=== PATIENT | male | born 1955 | race Caucasian/White ===

== ENCOUNTER 2018-03-20 11:19 | Day surgery (SDC) | payer OTHER ==
[~2018-03-20] VITALS: Ht 181.6 cm; Wt 96.5 kg
[~2018-03-20 11:19] MED LIST: AMB5 PO; ASPI81TA28 PO; ATOR-24 PO; ATV/1 PO; CRG625 PO; GEMF600T PO; GLIM4TAB PO; ISOS30TA3 PO; LISI-461 PO; METFTAB2 PO; NTRGSL/4 UT; OMEGCAP2 PO; SERT25TA PO; ULT/50 PO
[2018-03-20] MEDS ORDERED: HYDR25TA5 PO (12:11)
[2018-03-20] MEDS ORDERED: FLUT0.15 (12:11)
[2018-03-20] MEDS ORDERED: AMLO10TA2 PO (12:11)
[2018-03-20] MEDS ORDERED: WARF5TAB90 PO (12:11)
[2018-03-20 12:17] VITALS: BP 154/76; PULSE 56; TEMP 36.6; O2SAT 94; Ht 181.6 cm; Wt 96.5 kg
[2018-03-20] MEDS ORDERED: LIDOCAINE HCL 1% 20 ML VIAL ONE (12:22)
[2018-03-20] MEDS ORDERED: FENTANYL CITRATE INJ 50 MCG/1 ML 2 ML VIAL ONE (12:33)
[2018-03-20] MEDS ORDERED: MIDAZOLAM HCL 5 MG/ML 1 ML VIAL ONE (12:33)
--- NOTE | 2018-03-20 12:59 | Pre Sedation Assessment ---
Pre Sedation Assessment General Date of Sedation: Mar 20, 2018. Vital Signs Past 12 Hours Date Time Temp Pulse Resp B/P (MAP) Pulse Ox O2 Delivery O2 Flow Rate FiO2 03/20/18 12:17 36.6 56 18 154/76 (102) 94 Room Air Review Cardiovascular: regular rate, rhythm Lungs: lungs clear Pre-Sedation Airway Assessment Smoking Status: Never Smoker Hx of Sleep Apnea: Yes Hx of difficult intubation: No Short Thick Neck: No Thyro-mental Distance: > 3 Finger Breadths Oral Cavity: WNL Mallampati Classification: Class III ASA Classification: Class III NPO Status Date of Last Intake of Fluids: Mar 19, 2018 Time of Last Intake of Fluids: 1800 Date of Last Intake of Solids: Mar 19, 2018 Time of Last Intake of Solids: 1800 Procedure Planning Contraindications for Sedation: None Current Medications Reviewed: Yes Notes The planned sedation has been discussed with the patient. Informed Consent was obtained. I have identified the patient, determined the appropriateness of sedation and have assessed the patient immediately prior to the procedure. All medicine(s) and interventions are by my order.
--- NOTE | 2018-03-20 12:59 | History & Physical Bridge Note ---
H&P Re-Evaluation Bridge Note: I have examined the patient, reviewed the History & Physical and in the interval since the performance of the History & Physical I have noted the following changes of clinical significance: INR reported to be 2.1 four days ago. Other labs normal. No new symptoms. No changes noted
[2018-03-20] MEDS ORDERED: CLINDAMYCIN 600 MG/54 ML D5W IV ONE (13:00)
[2018-03-20] MEDS ORDERED: LACTATED RINGER'S 1000ML 1,000 ML IV SCH (13:00)
--- NOTE | 2018-03-20 14:16 | [facility] Operative Report ---
Operative Report Date of Service Mar 20, 2018. Operative Report Procedure performed: Pulse generator change for dual-chamber ICD Staff systems checkout mechanic: Randy Cuevas MD Indication: The patient is 60-year-old gentleman with a history of an ischemic cardiomyopathy who was noted on routine evaluation to reached the elective replacement interval on his device. He is therefore advised to undergo pulse generator change today. Procedure in detail: The patient was informed of the risks benefits and alternatives to the intended procedure and she wished to proceed. She was taken to the electrophysiology suite in a fasting state. A preoperative antibiotic had been administered. The patient was monitored electrocardiographically throughout today's procedure and conscious sedation was administered per protocol. The left upper pectoral area is prepped and draped in usual sterile fashion. This area was anesthetized using subcutaneous administration of a xylocaine solution. An incision was made at this site and carried down to the previously implanted device. Electrocautery was also employed for hemostasis as well as dissection. The previously implanted pulse generator was then free from the surrounding scar tissue. The leads were detached from the old device and attached to a new device. The pocket was irrigated with antibiotic solution. The device and leads were then placed in the pocket and pocket was closed in 3 layers of absorbable suture. Steri-Strips and sterile dressing were applied. The device was tested noninvasively prior to conclusion the procedure. The patient tolerated procedure well there no immediate complications. Equipment used: Explanted pulse generator: Fusing Machine Operator [employer]. Model number D [id number] DRG. Serial P [id number] New pulse generator: Fusing Machine Operator [employer]. Model number: DDD MB 1 D1 serial number [id number] Right atrial lead: Fusing Machine Operator [employer]. Model number: [id number] serial number [id number] Right ventricular lead: Fusing Machine Operator [employer]. Model number: [id number] serial number [id number] Measured data: Right atrial lead: P-waves measured 2.6 millivolts. Pacing threshold 0.75 volts at 0.4 milliseconds with a pacing impedance of 513 Ohms Right ventricular lead: R-waves measured 14.4 millivolts pacing threshold 0.75 volts at 0.4 milliseconds with a pacing impedance of 418 Ohms Impression: Successful pulse generator change for dual-chamber ICD I attest to the content of the Intraoperative Record and any orders documented therein. Any exceptions are noted below.
[2018-03-20] MEDS ORDERED: CLIN300C2 PO (14:18)
--- NOTE | 2018-03-20 14:20 | Discharge Instructions ---
Discharge Instructions Procedure Procedure Date: Mar 20, 2018. Reason for Visit: Elective Replacement Indicator. Discharge Discharge Date: Mar 20, 2018. Discharge Diagnosis: ICD generator change Last Recorded Wt (Kilograms): 96.5 Anesthesia Post Anesthesia Instructions: If you have had General Anesthesia or IV Sedation: * Do not drive today. * Resume driving when surgeon permits. * Do not make important decisions or sign legal documents today. * Call surgeon for: 1. Temperature elevations greater than 101 degrees F. 2. Uncontrollable pain. 3. Excessive bleeding. 4. Persistent nausea and vomiting. 5. Medication intolerance (nausea, vomiting or rash). * For nausea and vomiting use only clear liquids such as: tea, soda, bouillon until nausea subsides, then gradually increase diet as tolerated. * If you have any concerns or questions, call your surgeon's office. If physician is unavailable and it is an emergency, call 911 or go to the nearest emergency room. Instructions Activity Recommendations: shower/bathe limit Return to School/Work: with no limitations Recommended Home Diet: resume previous diet Allergies: Coded Allergies: Sulfa Drugs (Verified Allergy, Intermediate, "RASH A CHILD", 03/20/18) Penicillins (Verified Allergy, Mild, "RASH A CHILD", 03/20/18) Provider Instructions Keep wound dry and Steri-Strips intact 5 days. Follow Up Sebastian Calderon Recommendations: Call your doctor if: * Temperature above 101 degrees * Pain not relieved by pain medicine ordered * There is increased drainage or redness from any incision * You have any unanswered questions or concerns. Your Doctors Instructions noted above were prepared by provider Emir Cuevas. Patient Signature Section: Patient Instructions Signature Page Ric Quiroz Patient (or Guardian) Signature/Date: I have read and understand the instructions given to me by my caregivers. Caregiver/RN/Doctor Signature/Date: The above-named patient and/or guardian has received patient instructions on this date. + Original Patient Signature Page (only) stays with chart. Please make copy for patient.
[2018-03-20 14:25] VITALS: BP 128/83; PULSE 60; TEMP 36.6; O2SAT 91
[2018-03-20 14:55] VITALS: BP 136/86; PULSE 60; TEMP 36.6; O2SAT 91
== END 2018-03-20 15:03 | disposition home or self-care (01) ==
LOC: C.ACU 11:19
PROVIDERS: ATTEND Internal Medicine Clinical Cardiac Electrophysiology
DX: Z45.010 Encounter for checking and testing of cardiac pacemaker pulse generator [battery] (principal); I25.10 Atherosclerotic heart disease of native coronary artery without angina pectoris; I25.5 Ischemic cardiomyopathy; J30.9 Allergic rhinitis, unspecified; E78.00 Pure hypercholesterolemia, unspecified; I10 Essential (primary) hypertension; G47.33 Obstructive sleep apnea (adult) (pediatric); Z79.82 Long term (current) use of aspirin; Z79.01 Long term (current) use of anticoagulants; Z88.0 Allergy status to penicillin; Z88.2 Allergy status to sulfonamides

== ENCOUNTER 2019-09-18 10:18 | Inpatient (IN) ==
[2019-09-18] MEDS ORDERED: FUROSEMIDE 40 MG/4 ML VIAL IV STA ×2 (11:06→16:00)
[2019-09-18] MEDS ORDERED: ASPIRIN CHEW 324 MG PO STA (11:09)
[2019-09-18 11:39] LABS: Basophils # (auto) 0.02 K/uL (0-0.2); Basophils % (auto) 0.2 %; Hemoglobin 11.8 g/dL (14.0-18.0); Immature Granulocytes # (auto) 0.01 K/uL (0.00-0.02); Immature Granulocytes % (auto) 0.1 %; Lymphocytes # (auto) 0.83 K/uL (1.2-3.4); Lymphocytes % (auto) 8.9 %; Mean Corpuscular Hemoglobin 31.1 pg (25-34); Mean Corpuscular Hgb Conc 33.7 g/dL (32-36); Mean Corpuscular Volume 92.3 fL (80-100); Mean Platelet Volume 9.8 fL (7.4-10.4); Monocytes # (auto) 0.78 K/uL (0.11-0.59); Monocytes % (auto) 8.3 %; Neutrophils # (auto) 7.73 K/uL (1.4-6.5); Neutrophils % (auto) 82.5 %; Platelet Count 199 K/uL (130-400); RDW Coefficient of Variation 15.3 % (11.5-14.5); RDW Standard Deviation 51.4 fL (36.4-46.3); Red Blood Count 3.79 M/uL (4.7-6.1); White Blood Count 9.37 K/uL (4.8-10.8)
[2019-09-18 12:00] LABS: Albumin Level 2.9 gm/dl (3.4-5.0); BUN Creatinine Ratio 19.1 (10-20); Calcium 9.9 mg/dl (8.5-10.1); Creatinine Clr Calc Pharmacy 47.8 ml/min; Est GFR (African American) 39.9; Est GFR (Non-African American) 34.5; Magnesium 1.8 mg/dl (1.8-2.4); Potassium 4.6 mmol/L (3.5-5.1)
[2019-09-18 12:01] LABS: INR 1.1 (0.9-1.1); Partial Thromboplastin Ratio 1.1; Partial Thromboplastin Time 28.9 Seconds (21.0-31.0); Prothrombin Time 11.3 Seconds (9.0-12.0)
[2019-09-18 12:05] LABS: Albumin Globulin Ratio 0.6 (0.9-2); Bilirubin,Total 0.8 mg/dl (0.2-1); Globulin 4.5 gm/dl (2.5-4.0); Total Protein 7.4 gm/dl (6.4-8.2); Troponin I 0.022 ng/ml (0-0.045)
--- NOTE | 2019-09-18 12:29 | XRay Report ---
XR chest 1V portable HISTORY: 64 years-old Male Chest Pain acute atypical chest pain COMPARISON: 11/25/2013 TECHNIQUE: Portable AP view of the chest FINDINGS: Cardiac silhouette is enlarged, unchanged. Pulmonary vascular congestion with mild interstitial coars ening. Bibasilar alveolar opacities are noted with blunting of the costophrenic angles. There is no p neumothorax. Left subclavian pacer/AICD redemonstrated. Calcific plaque of the thoracic aortic arch. Degenerative changes of the shoulders and spine. IMPRESSION: 1. Cardiomegaly with pulmonary vascular congestion and interstitial coarsening suggestive of pulmonar y edema. 2. Bibasilar consolidative opacities suggest atelectasis or pneumonitis. 3. Probable trace pleural effusions. ACT 112: Negative or not required by law. The above report was generated using voice recognition software. It may contain grammatical, syntax o r spelling errors. Electronically signed by: Louis Kearney M.D. 09/18/2019 12:27 PM
[2019-09-18] MEDS ORDERED: PNEUMOCOCCAL POLYSACCHARIDES 25 MCG/0.5 ML VIAL/SYR IM ONE (12:53)
[2019-09-18] MEDS ORDERED: PNEUMOCOCCAL ADMINISTRATION CHARGE ONE (12:53)
[2019-09-18 13:42] LABS: Thyroid Stimulating Hormone 6.63 uIu/ml (0.300-4.500)
[2019-09-18 13:55] LABS: T4 Free Thyroxine 1.13 ng/dl (0.8-1.6)
[2019-09-18] MEDS ORDERED: Heparin IV Standard *NO* Bolus IV ONE (14:10)
[2019-09-18] MEDS ORDERED: HEPARIN 25000 UNIT/500 ML D5W IV ONE (14:17)
--- NOTE | 2019-09-18 14:21 | History & Physical Report ---
Date of Service September 18, 2019 Assessment & Plan (1) Fluid overload: Pt is 64 y/o M with PMH CAD s/p stent, ischemic cardiomyopathy s/p ICD, history left apical aneurysm, DM II, HTN, dyslipidemia, RYAN, CKD presented to ER with c/o weight gain over past 2-3 months and SOB x 2-3 weeks, increased BLE edema and abdominal bloating In ER afebrile, P: 63, R: 20, BP: 162/98, 93% on 6L oxygen via NC. CXR: Cardiomegaly with pulmonary vascular congestion and interstitial coarsening suggestive of pulmonary edema. Bibasilar consolidative opacities suggest atelectasis or pneumonitis. Probable trace pleural effusions. Anasarca -In ER given Lasix 40 mg IV -BNP pending -Lasix 60 mg IV twice daily -Nitropaste -Echo -Hold oral Bumex. Hold metolazone (patient has not started yet) -Monitor I's and O's, low-sodium diet -Supplemental oxygen as needed -Cardiology consult -CBC, BMP in a.m. (2) Atrial fibrillation: EKG: afib, rate 64, left anterior fascicular block, ventricular paced. In ER HR 50's-60's CHADSVASC: 4 -Continue metoprolol -Heparin IV -Cardiology consult (3) Chest pain: Episode CP last night and this morning. Had 2 sprays of nitroglycerin in route by EMS with resolution of chest pain Troponin: 0.02 -Nitropaste -On IV heparin -Continue aspirin, statin, metoprolol -Nitropaste -Echo -Lipid panel in morning -Cardiology consult (4) CAD (coronary artery disease): S/P Stent -CP work up as above H/O LEFT APICAL ANEURYSM Previously on Coumadin. Coumadin was discontinued while in nursing home -Currently on Heparin IV (5) CKD (chronic kidney disease): Present records indicate CKD. Unsure of CKD stage and baseline labs BUN: 38, Cr: 1.99, GFR: 34.5 -Monitor renal function -Avoid nephrotoxic agents when possible -May need to consider nephrology consult if worsening renal functions (6) HTN (hypertension): -Continue amlodipine, metoprolol -Enalapril was to be started however patient has not started yet, will hold for now and monitor renal functions and BP -Currently on Lasix and Nitropaste -Monitor BP (7) 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, type II: -A1c in a.m. -Hold glimepiride, metformin -Novolog sliding scale per protocol (8) RYAN (obstructive sleep apnea): -CPAP HS DVT Prophylaxis -On heparin IV Full Code as per discussion with pt Follows with Dr Rodriguez at [facility] for routine care Pt was seen and care coordinated with Dr Wylie. See addendum History of Present Illness Chief Complaint: SOB, Edema Primary Care Provider: [facility] Pt is 64 y/o M with PMH CAD s/p stent, ischemic cardiomyopathy s/p ICD, history left apical aneurysm, DM II, HTN, dyslipidemia, RYAN, CKD presented to ER with complaint of shortness of breath x 2-3 weeks. Patient states has noted gradual weight gain over the past 2 to 3 months with increased weight gain over the past month. Patient states has gained approximately 30 pounds. He reports bilateral lower extremity edema which has progressed to scrotal edema and abdominal bloating. He reports past 2 to 3 weeks has been having shortness of breath and orthopnea. In present Bumex was started a couple of weeks ago. Patient states had telemetry med consult with freight associate recently and discussion was to start metolazone however it has not been started yet. Patient states last night had some anterior left-sided chest aching, however he reports that he did not ask for his sublingual nitro. During transport to ER today patient reports EMS gave 2 sprays of nitroglycerin and since he has not had any further chest discomfort. Patient reports sitting fully upright and on oxygen in ER he feels much more comfortable and feels like his less short of breath. Patient with history of left apical aneurysm and previously was on Coumadin however patient states was taken off Coumadin in nursing home as they felt it was not necessary. Pt states that his diet has been different since being incarcerated. Denies fever/chills, diaphoresis, N/V/D/C, BRUNO, dizziness, syncope, vision changes, neck pain, palpitations, cough, sore throat, choking, otalgia, rhinorrhea, abdominal pain, paresthesias, weakness, rashes, dysuria, hematuria, urinary frequency or retention. Allergies Allergy/AdvReac Type Severity Reaction Status Date / Time Sulfa (Sulfonamide Allergy Intermediate "RASH A Verified 09/18/19 11:50 Antibiotics) CHILD" Penicillins Allergy Mild "RASH A Verified 09/18/19 11:50 CHILD" camphor Allergy Unknown Verified 09/18/19 11:50 [From [place] (with capsicum)] capsaicin Allergy Unknown Verified 09/18/19 11:50 [From [place] (with capsicum)] menthol Allergy Unknown Verified 09/18/19 11:50 [From [place] (with capsicum)] Home Medications Home Medications Medication Instructions Recorded Confirmed Type atorvastatin 80 mg tablet 80 mg PO QAM #90 tab 03/04/19 09/18/19 History glimepiride 4 mg tablet 4 mg PO BID tab 03/04/19 09/18/19 History metformin 1,000 mg tablet 1,000 mg PO BID #180 tab 03/04/19 09/18/19 History nitroglycerin 0.4 mg sublingual 0.4 mg SL UD PRN tab 03/04/19 09/18/19 History tablet amlodipine 5 mg PO QAM 09/18/19 09/18/19 History aspirin 81 mg PO QAM 09/18/19 09/18/19 History bumetanide 2 mg PO QAM 09/18/19 09/18/19 History enalapril maleate 10 mg PO BID 09/18/19 09/18/19 History metolazone 2.5 mg PO DAILY 09/18/19 09/18/19 History metoprolol tartrate 25 mg PO BID 09/18/19 09/18/19 History Past Med/Surg History Medical History (Updated 09/18/19 @ 14:28 by Mar Corrales PA-C) CAD (coronary artery disease) CKD (chronic kidney disease) Diabetes 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, type II Dyslipidemia High cholesterol History of myocardial infarction HTN (hypertension) RYAN (obstructive sleep apnea) Surgical History (Updated 09/18/19 @ 15:18 by Mar Corrales PA-C) History of cardiac cath History of permanent cardiac pacemaker placement Family History (Updated 09/18/19 @ 14:19 by Mar Corrales PA-C) Other Diabetes Hypertension Social History Preferred Language: Albanian Communication Ability: Effective Pin Maker Required: No Beliefs That Will Affect Care: None Current Living Situation: Other Current Living Situation Comment: [facility] Other Information That Helps Us Care for You: No Feels Safe at Home: Yes Safety Concerns: Feels Safe At This Time Smoking Status: Never smoker Do You Dip or Chew Tobacco: No ; Second Hand Exposure: No ; Tobacco Cessation Education Requested by Patient: No Hx Alcohol Use: No Hx Substance Use: No Review of Systems Review of Systems: All systems reviewed & are unremarkable except as noted in HPI & below Physical Exam Physical Exam: General: no acute distress on supplemental oxygen and sitting upright, obese Head: normocephalic, atraumatic Eyes: PERRL, EOM's intact, conjunctiva non-injected, anicteric ENT: normal inspection external ears, nose, mucous membranes moist Neck: supple, trachea midline Lungs: R: 20, 92 % on 4L NC, no retractions, +diminished breath sounds CV: irregularly irregular, rate 58, no murmur, JVD, 3+ edema BLE, edema extending to scrotum and abdomen Abd: normal BS, distended, non-tender Ext: no cyanosis, no calf tenderness Neuro: A&O x 3, no focal deficits noted, normal affect Skin: warm, dry Results & Data Vital Signs (Past 12 Hours) Vital Signs Temp Pulse Resp BP Pulse Ox 09/18/19 13:31 55 L 21 09/18/19 13:30 56 L 26 H 189/105 H 09/18/19 13:01 56 L 25 H 92 09/18/19 13:00 54 L 16 173/126 H 91 09/18/19 12:30 55 L 19 178/124 H 91 09/18/19 12:00 51 L 22 161/98 H 93 09/18/19 11:48 59 L 27 H 180/92 H 91 09/18/19 11:00 53 L 29 H 147/77 H 91 09/18/19 10:25 36.5 C 60 20 162/98 H 91 Laboratory Results Short CBC 09/18/19 Range/Units 11:12 WBC 9.37 (4.8-10.8) K/uL Hgb 11.8 L (14.0-18.0) g/dL Hct 35.0 L (42-52) % Plt Count 199 (130-400) K/uL BMP 09/18/19 11:12 Sodium 138 Potassium 4.6 Chloride 108 H Carbon Dioxide 26 BUN 38 H Creatinine 1.99 H Glucose 161 H Calcium 9.9 Cardiac Enzymes 09/18/19 Range/Units 11:12 Troponin I 0.022 (0-0.045) ng/ml Liver Function 09/18/19 Range/Units 11:12 Total Bilirubin 0.8 (0.2-1) mg/dl AST 24 (15-37) U/L ALT 33 (12-78) U/L Alkaline Phosphatase 129 H (45-117) U/L Albumin 2.9 L (3.4-5.0) gm/dl Diagnostic Findings CXR: IMPRESSION: 1. Cardiomegaly with pulmonary vascular congestion and interstitial coarsening s uggestive of pulmonary edema. 2. Bibasilar consolidative opacities suggest atelectasis or pneumonitis. 3. Probable trace pleural effusions. Supervising Physician Co-Signing Physician Notes Attending addendum Patient was seen and examined in emergency room He has significant past medical history including ischemic cardiomyopathy status post ICD placement and other medical condition as mentioned in H&P was admitted with increasing shortness of breath, swelling of the legs and scrotum, weight gain and questionable chest pain You are not having any chest pain and/or shortness of breath at rest during examination in the emergency room Denies any other significant symptoms On examination Lying in bed comfortably Obese-with anasarca Hemodynamically stable with blood pressure on the upper end at systolic 156 Chest-decreased breath sounds with bibasilar crackles Heart-S1-S2. 2/6 systolic murmur over precordium Abdomen-distended, possible ascites, bowel sounds present Extremities-2+ edema bilaterally up to the waist and even lower abdomen Significant scrotal swelling Seen-alert, awake and oriented x3. Generally weak His admission labs, EKG and imaging studies noted Has CHF likely biventricular with ischemic cardiomyopathy and low EF with ICD Atrial fibrillationrate is controlled but he is off anticoagulation Heparin has been restarted, Lasix will be administered and cardiology consultation Agree with assessment and plan as outlined above by YOVANI Lopez DR
--- NOTE | 2019-09-18 14:31 | Emergency Department Note ---
Entered by Radha Pereyra acting as a scribe for History of Present Illness General Chief complaint: Chest Pain Source: patient Mode of arrival: EMS History of Present Illness Onset (ago): day(s) 3 Location: chest Pain Consistency: + now resolved Quality: + other (chest pain) Relieved By: not by medication (Lasix) Exacerbated By: + movement and + other (lying flat) Associated symptoms: + chest pain, + shortness of breath and + other (weight gain) Treatments prior to arrival: aspirin The patient is a 64 year old male presenting to the Emergency Department co mplaining of now resolved chest pain starting 3 days ago. The patient reports that he had chest pain that resolved. He explains that when he turns a certain way this turns into a sharp pain. He states that he has been short of breath and that lying flat worsens his shortness of breath. He notes that he has gained 35 pounds in the last 3 weeks. He adds that he has been to [facility], where he resides and has been taking Lasix which hasnt improved his weight gain. The patient reports that he noticed that his scrotum has been swelling. He states that he received Aspirin from [facility]. He denies recent fevers or chills. Home Medications Home Medications Medication Instructions Recorded Confirmed Type atorvastatin 80 mg tablet 80 mg PO QAM #90 tab 03/04/19 09/18/19 History glimepiride 4 mg tablet 4 mg PO BID tab 03/04/19 09/18/19 History metformin 1,000 mg tablet 1,000 mg PO BID #180 tab 03/04/19 09/18/19 History nitroglycerin 0.4 mg sublingual 0.4 mg SL UD PRN tab 03/04/19 09/18/19 History tablet amlodipine 5 mg PO QAM 09/18/19 09/18/19 History aspirin 81 mg PO QAM 09/18/19 09/18/19 History bumetanide 2 mg PO QAM 09/18/19 09/18/19 History enalapril maleate 10 mg PO BID 09/18/19 09/18/19 History metolazone 2.5 mg PO DAILY 09/18/19 09/18/19 History metoprolol tartrate 25 mg PO BID 09/18/19 09/18/19 History Allergies Allergy/AdvReac Type Severity Reaction Status Date / Time Sulfa (Sulfonamide Allergy Intermediate "RASH A Verified 09/18/19 11:50 Antibiotics) CHILD" Penicillins Allergy Mild "RASH A Verified 09/18/19 11:50 CHILD" camphor Allergy Unknown Verified 09/18/19 11:50 [From [place] (with capsicum)] capsaicin Allergy Unknown Verified 09/18/19 11:50 [From [place] (with capsicum)] menthol Allergy Unknown Verified 09/18/19 11:50 [From [place] (with capsicum)] Past Med/Surg History Medical History (Updated 09/20/19 @ 12:52 by Stacey Billy MD, PhD) CAD (coronary artery disease) CKD (chronic kidney disease) Diabetes 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, type II Dyslipidemia High cholesterol History of myocardial infarction HTN (hypertension) RYAN (obstructive sleep apnea) Proteinuria Surgical History History of cardiac cath History of permanent cardiac pacemaker placement Family History Other Diabetes Hypertension Social History Preferred Language: Cymro Communication Ability: Effective Load Dispatcher Required: No Beliefs That Will Affect Care: None Current Living Situation: Other Current Living Situation Comment: [facility] Other Information That Helps Us Care for You: No Feels Safe at Home: Yes Safety Concerns: Feels Safe At This Time Smoking Status: Never smoker Do You Dip or Chew Tobacco: No ; Second Hand Exposure: No ; Tobacco Cessation Education Requested by Patient: No Hx Alcohol Use: No Hx Substance Use: No Review of Systems See HPI for pertinent positives & negatives. and A total of 10 systems reviewed and were otherwise negative Physical Exam Vital Signs Vital Signs - 24 hr 09/18/19 10:25 09/18/19 11:00 09/18/19 11:48 Temperature 36.5 C Temperature Source Oral Pulse Rate 60 53 L 59 L Pulse Rate from SpO2 Sensor 59 L 56 L 54 L Respiratory Rate 20 29 H 27 H Respiratory Effort / Characteristics Non-Labored Spontaneous Respiratory Depth Normal Blood Pressure 162/98 H 147/77 H 180/92 H Blood Pressure Mean 119 95 131 Blood Pressure Position Sitting Pulse Oximetry 91 91 91 Oxygen Delivery Method Nasal Cannula Nasal Cannula Nasal Cannula Oxygen Flow Rate 6 6 4 Sepsis Recent Fever Within 48 Hours No Sepsis Action Taken by Nursing No Action Required 09/18/19 12:00 09/18/19 12:30 09/18/19 13:00 Temperature Temperature Source Pulse Rate 51 L 55 L 54 L Pulse Rate from SpO2 Sensor 51 L 57 L 56 L Respiratory Rate 22 19 16 Respiratory Effort / Characteristics Respiratory Depth Blood Pressure 161/98 H 178/124 H 173/126 H Blood Pressure Mean 134 147 144 Blood Pressure Position Pulse Oximetry 93 91 91 Oxygen Delivery Method Nasal Cannula Nasal Cannula Nasal Cannula Oxygen Flow Rate 4 4 4 Sepsis Recent Fever Within 48 Hours Sepsis Action Taken by Nursing 09/18/19 13:01 09/18/19 13:30 09/18/19 13:31 Temperature Temperature Source Pulse Rate 56 L 56 L 55 L Pulse Rate from SpO2 Sensor 56 L Respiratory Rate 25 H 26 H 21 Respiratory Effort / Characteristics Respiratory Depth Blood Pressure 189/105 H Blood Pressure Mean 126 Blood Pressure Position Pulse Oximetry 92 Oxygen Delivery Method Oxygen Flow Rate Sepsis Recent Fever Within 48 Hours Sepsis Action Taken by Nursing Vital signs reviewed. General: Well-appearing 64 year old male, in no significant distress. HEENT: No scleral icterus, PERRLA, neck supple. Atraumatic. Cardiovascular: Controlled rate and irregular rhythm, no extra sounds. Pulmonary: Crackles at bases bilaterally. Normal work of breathing. Abdomen: Obese. Soft, nontender, nondistended, positive bowel sounds. Musculoskeletal: 3+ pitting edema to bilateral lower extremities. Atraumatic. Neurologic: Patient awake alert and oriented x 3 Skin: Warm, dry, no rash Course Course 1102: The patient was evaluated in room B6, and a complete history and physical examination were performed. 1241: I discussed the patient's case with Karolyn HILL. Dr. Wylie [facility] hospitalist will evaluate the patient for further management. 1245: I updated the patient at this time. Administered Medications Amlodipine Besylate (Norvasc) 5 mg PO QAM [facility] Stop: 10/19/19 08:59 Last Admin: 09/20/19 08:42 Dose: 5 mg Documented by: [id number] Admin: 09/19/19 08:41 Dose: 5 mg Documented by: [id number] Apixaban (Eliquis) 5 mg PO BID [facility] Stop: 10/20/19 13:59 Last Admin: 09/20/19 14:39 Dose: 5 mg Documented by: [id number] Aspirin (Ecotrin Ectab) 81 mg PO DAILY [facility] Stop: 10/19/19 08:59 Last Admin: 09/20/19 08:41 Dose: 81 mg Documented by: [id number] Admin: 09/19/19 08:41 Dose: 81 mg Documented by: [id number] [facility]orvastatin Cal[facility] [place]: 10/19/19 08:59 Last Admin: 09/20/19 08:41 Dose: 80 mg Documented by: [id number] Admin: 09/19/19 08:41 Dose: 80 mg Documented by: [id number] Insulin Aspart (Novolog Flexpen) 0 units SC [facility] Stop: 10/18/19 16:29 Last Admin: 09/20/19 12:32 Dose: 7 units Documented by: [id number] Cosigned by: [id number] Admin: 09/20/19 08:42 Dose: 6 units Documented by: [id number] Cosigned by: [id number] Admin: 09/19/19 20:32 Dose: 2 units Documented by: [id number] Cosigned by: [id number] Admin: 09/19/19 17:14 Dose: 7 units Documented by: [id number] Cosigned by: [id number] Admin: 09/19/19 12:07 Dose: 9 units Documented by: [id number] Cosigned by: [id number] Admin: 09/19/19 08:42 Dose: 5 units Documented by: [id number] Cosigned by: [id number] Admin: 09/18/19 20:24 Dose: 1 units Documented by: [id number] Cosigned by: [id number] Admin: 09/18/19 17:08 Dose: 4 units Documented by: [id number] Cosigned by: [id number] Magnesium Oxide (Mag-Ox) 400 mg PO BID [facility] Stop: 10/19/19 20:59 Last Admin: 09/20/19 08:41 Dose: 400 mg Documented by: [id number] Admin: 09/19/19 20:32 Dose: 400 mg Documented by: [id number] Metoprolol Succinate ([facility]rol Xl) [facility] [place]: 10/19/19 08:59 Last Admin: 09/20/19 08:41 Dose: 50 mg Documented by: [id number] Admin: 09/19/19 08:41 Dose: 50 mg Documented by: [id number] Discontinued Medications Aspirin (Aspirin) 243 mg PO NOW STA Stop: 09/18/19 11:10 Last Admin: 09/18/19 13:08 Dose: Not Given Documented by: [id number] Furosemide (Lasix) 60 mg IV NOW STA Stop: 09/18/19 11:07 Last Admin: 09/18/19 11:46 Dose: 60 mg Documented by: [id number] Furosemide (Lasix) 60 mg IV NOW STA Stop: 09/18/19 16:01 Last Admin: 09/18/19 17:15 Dose: 60 mg Documented by: [id number] Furosemide (Lasix) Confirm Administered Dose 10 mg IV .STK-MED ONE Stop: 09/18/19 17:11 Last Admin: 09/18/19 17:16 Dose: Not Given Documented by: [id number] Heparin Sodium/Dextrose (Heparin Sodium/Dextrose) Confirm Administered Dose 25,000 units IV .STK-MED ONE Stop: 09/18/19 14:18 Last Admin: 09/18/19 14:17 Dose: 1,600 units Documented by: [id number] Cosigned by: [id number] Heparin Sodium/Dextrose (Heparin Sodium/Dextrose) 25,000 units in 500 mls @ 28 mls/hr IV .[id number] [facility]; Protocol Stop: 09/20/19 14:00 Last Titration: 09/20/19 15:15 Dose: 0 units/hr, 0 mls/hr Documented by: [id number] Cosigned by: [id number] Titration: 09/20/19 12:00 Dose: 1,400 units/hr, 28 mls/hr Documented by: [id number] Cosigned by: [id number] Titration: 09/20/19 07:49 Dose: 1,400 units/hr, 28 mls/hr Documented by: [id number] Cosigned by: [id number] Titration: 09/20/19 07:11 Dose: 1,600 units/hr, 32 mls/hr Documented by: [id number] Cosigned by: [id number] Admin: 09/19/19 21:02 Dose: 1,600 units/hr, 32 mls/hr Documented by: [id number] Cosigned by: [id number] Titration: 09/19/19 21:02 Dose: 1,600 units/hr, 32 mls/hr Documented by: [id number] Cosigned by: [id number] Titration: 09/19/19 15:14 Dose: 1,600 units/hr, 32 mls/hr Documented by: [id number] Cosigned by: [id number] Titration: 09/19/19 07:17 Dose: 1,600 units/hr, 32 mls/hr Documented by: [id number] Cosigned by: [id number] Admin: 09/19/19 05:30 Dose: 1,600 units/hr, 32 mls/hr Documented by: [id number] Cosigned by: [id number] Titration: 09/19/19 05:30 Dose: 1,600 units/hr, 32 mls/hr Documented by: [id number] Cosigned by: [id number] Titration: 09/18/19 21:39 Dose: 1,600 units/hr, 32 mls/hr Documented by: [id number] Cosigned by: [id number] Admin: 09/18/19 14:57 Dose: 1,600 units/hr, 32 mls/hr Documented by: [id number] Cosigned by: [id number] Nitroglycerin (Nitro-Bid 2%) 1 inch EXT Q6H [place] Stop: 09/19/19 14:59 Last Admin: 09/19/19 12:12 Dose: 1 inch Documented by: [id number] Admin: 09/19/19 05:30 Dose: 1 inch Documented by: [id number] Admin: 09/18/19 23:30 Dose: 1 inch Documented by: [id number] Admin: 09/18/19 14:57 Dose: 1 inch Documented by: [id number] Medical Decision Making Differential Diagnosis Differential diagnoses includes acute coronary syndrome, pulmonary embolus, aortic dissection, musculoskeletal pain, pneumonia, pleural effusion, pneumothorax, gastritis, peptic ulcer disease. Medical Records Attestation: I reviewed the patient's medical records. Home Medications Current Medication List: was personally reviewed by me Laboratory Data Attestation: I reviewed the patient's lab results. Result diagrams: 09/20/19 07:05 09/20/19 07:05 Lab Results 09/18/19 09/18/19 09/18/19 Range/Units 11:12 11:12 11:12 WBC 9.37 (4.8-10.8) K/uL RBC 3.79 L (4.7-6.1) M/uL Hgb 11.8 L (14.0-18.0) g/dL Hct 35.0 L (42-52) % MCV 92.3 (80-100) fL MCH 31.1 (25-34) pg MCHC 33.7 (32-36) g/dL RDW Std Deviation 51.4 H (36.4-46.3) fL RDW Coeff of Nini 15.3 H (11.5-14.5) % Plt Count 199 (130-400) K/uL MPV 9.8 (7.4-10.4) fL Immature Gran % (Auto) 0.1 % Neut % (Auto) 82.5 % Lymph % (Auto) 8.9 % [place] % (Auto) 8.3 % Eos % (Auto) 0.0 % Baso % (Auto) 0.2 % Immature Gran # (Auto) 0.01 (0.00-0.02) K/uL Neut # (Auto) 7.73 H (1.4-6.5) K/uL Lymph # (Auto) 0.83 L (1.2-3.4) K/uL [place] # (Auto) 0.78 H (0.11-0.59) K/uL Eos # (Auto) 0.00 (0-0.5) K/uL Baso # (Auto) 0.02 (0-0.2) K/uL PT 11.3 (9.0-12.0) Seconds INR 1.1 (0.9-1.1) APTT 28.9 (21.0-31.0) Seconds PTT Ratio 1.1 Sodium 138 (136-145) mmol/L Potassium 4.6 (3.5-5.1) mmol/L Chloride 108 H (98-107) mmol/L Carbon Dioxide 26 (21-32) mmol/L Anion Gap 4.0 (3-11) BUN 38 H (7-18) mg/dl Creatinine 1.99 H (0.6-1.4) mg/dl Est Cr Clr Drug Dosing 47.8 ml/min Est GFR ( Amer) 39.9 Est GFR (Non-Af Amer) 34.5 BUN/Creatinine Ratio 19.1 (10-20) Glucose 161 H (70-99) mg/dl Calcium 9.9 (8.5-10.1) mg/dl Magnesium 1.8 (1.8-2.4) mg/dl Total Bilirubin 0.8 (0.2-1) mg/dl AST 24 (15-37) U/L ALT 33 (12-78) U/L Alkaline Phosphatase 129 H (45-117) U/L Troponin I 0.022 (0-0.045) ng/ml NT-Pro-B Natriuret Pep (0-900) pg/ml Total Protein 7.4 (6.4-8.2) gm/dl Albumin 2.9 L (3.4-5.0) gm/dl Globulin 4.5 H (2.5-4.0) gm/dl Albumin/Globulin Ratio 0.6 L (0.9-2) Lipase 208 (73-393) U/L TSH (0.300-4.500) uIu/ml Free T4 (0.8-1.6) ng/dl 09/18/19 09/18/19 Range/Units 11:12 11:12 WBC (4.8-10.8) K/uL RBC (4.7-6.1) M/uL Hgb (14.0-18.0) g/dL Hct (42-52) % MCV (80-100) fL MCH (25-34) pg MCHC (32-36) g/dL RDW Std Deviation (36.4-46.3) fL RDW Coeff of Nini (11.5-14.5) % Plt Count (130-400) K/uL MPV (7.4-10.4) fL Immature Gran % (Auto) % Neut % (Auto) % Lymph % (Auto) % [place] % (Auto) % Eos % (Auto) % Baso % (Auto) % Immature Gran # (Auto) (0.00-0.02) K/uL Neut # (Auto) (1.4-6.5) K/uL Lymph # (Auto) (1.2-3.4) K/uL [place] # (Auto) (0.11-0.59) K/uL Eos # (Auto) (0-0.5) K/uL Baso # (Auto) (0-0.2) K/uL PT (9.0-12.0) Seconds INR (0.9-1.1) APTT (21.0-31.0) Seconds PTT Ratio Sodium (136-145) mmol/L Potassium (3.5-5.1) mmol/L Chloride (98-107) mmol/L Carbon Dioxide (21-32) mmol/L Anion Gap (3-11) BUN (7-18) mg/dl Creatinine (0.6-1.4) mg/dl Est Cr Clr Drug Dosing ml/min Est GFR ( Amer) Est GFR (Non-Af Amer) BUN/Creatinine Ratio (10-20) Glucose (70-99) mg/dl Calcium (8.5-10.1) mg/dl Magnesium (1.8-2.4) mg/dl Total Bilirubin (0.2-1) mg/dl AST (15-37) U/L ALT (12-78) U/L Alkaline Phosphatase (45-117) U/L Troponin I (0-0.045) ng/ml NT-Pro-B Natriuret Pep 8264 H (0-900) pg/ml Total Protein (6.4-8.2) gm/dl Albumin (3.4-5.0) gm/dl Globulin (2.5-4.0) gm/dl Albumin/Globulin Ratio (0.9-2) Lipase (73-393) U/L TSH 6.630 H (0.300-4.500) uIu/ml Free T4 1.13 (0.8-1.6) ng/dl Imaging Data Radiologist's Impression: Radiology results as stated below per my review and the radiologist's interpretation: XR chest 1V portable HISTORY: 64 years-old Male Chest Pain acute atypical chest pain COMPARISON: 11/25/2013 TECHNIQUE: Portable AP view of the chest FINDINGS: Cardiac silhouette is enlarged, unchanged. Pulmonary vascular congestion with mild interstitial coarsening. Bibasilar alveolar opacities are noted with bl unting of the costophrenic angles. There is no pneumothorax. Left subclavian pacer/AICD redemonstrated. Calcific plaque of the thoracic aortic arch. Degenerative changes of the shoulders and spine. IMPRESSION: 1. Cardiomegaly with pulmonary vascular congestion and interstitial coarsening suggestive of pulmonary edema. 2. Bibasilar consolidative opacities suggest atelectasis or pneumonitis. 3. Probable trace pleural effusions. ACT 112: Negative or not required by law. The above report was generated using voice recognition software. It may contain grammatical, syntax or spelling errors. Electronically signed by: Louis Kearney M.D. 09/18/2019 12:27 PM ECG Data Attestation: I personally reviewed and interpreted this ECG as follows: Indication: + chest pain and + SOB/dyspnea Rate (beats per minute): 64 Rhythm: + atrial flutter ECG Intervals/blocks: + Left anterior fascicular block and + Normal QT-c ECG ST segments: + Nonspecific ST abnormalities (in interior leads) ECG Findings: + Other (Variable AV block. Occasional ventricular paced complexes. ) Blood Pressure Blood Pressure Findings: Elevated blood pressure Blood Pressure Disposition: further management by hospitalist DELMIS Narrative Cardiac Monitoring: An order was placed for continuous cardiac monitoring. The monitor shows a rate of 62 with an irregular rhythm. This patient was evaluated and appeared to be in no significant distress. Physical examination reveals a chronically ill appearing male with a large amount of lower extremity edema. Abdomen is somewhat distended but nontympanitic. Patient does have a slightly increased work of breathing. Chest x-ray reveals cardiomegaly with pulmonary vascular congestion. Laboratory work reveals an elevated creatinine at 1.99. Patient was given 60 mg of IV Lasix. EKG confirms no acute ischemia. Patient's case was discussed with the hospitalist service who will evaluate the patient for further management. Patient is aware of the plan and agrees. Impression & Plan CHF (congestive heart failure), Fluid retention, Weight gain Discharge Plan Visit Data *Final* Discharge Date/Time: 09/18/19 15:08 Chief Complaint: Chest Pain ED Provider: Shanta Jones Discharge Problem: CHF (congestive heart failure), Fluid retention, Weight gain Patient Disposition: Admitted As Inpatient Discharge Instructions Interventions: ED Discharge Assessment Last Done: 09/18/19 15:08 Discharge Problem: CHF (congestive heart failure) Qualifiers: Heart failure type: unspecified Heart failure chronicity: acute Qualified Code(s): I50.9 - Heart failure, unspecified The scribe's documentation has been prepared under my direction and personally reviewed by me in its entirety. I confirm that the note above accurately reflects all work, treatment, procedures, and medical decision making performed by me.
[2019-09-18] MEDS: NITROGLYCERIN 2% OINTMENT 30GM TUBE EXT SCH ×2 (14:57→23:30)
[2019-09-18] MEDS: Heparin Adult STANDARD Wt-Based Dextrose 5% 25,000 units/500 mL IV SCH (14:57)
--- NOTE | 2019-09-18 15:03 | Electrocardiogram Report ---
Test Reason : Blood Pressure : / mmHG Vent. Rate : 064 BPM Atrial Rate : 234 BPM P-R Int : 000 ms QRS Dur : 114 ms QT Int : 428 ms P-R-T Axes : -85 -66 031 degrees QTc Int : 441 ms Atrial flutter with variable A-V block with occasional ventricular-paced complexes Left anterior fascicular block Anterolateral infarct , age undetermined Abnormal ECG When compared with ECG of 25-NOV-2013 16:11, Electronic ventricular pacemaker has replaced Sinus rhythm Confirmed by Randy Cuevas ([id number]) on 09/18/2019 3:03:10 PM Referred By: Confirmed By:Tom Cuevas
[2019-09-18] MEDS ORDERED: GLUCOSE 40% GEL 15 GM TUBE PO PRN (16:00)
[2019-09-18] MEDS ORDERED: HEPARIN SODIUM/DEXTROSE 25,000 UNITS/500 ML BAG IV SCH (16:00)
[2019-09-18] MEDS ORDERED: CARBOHYDRATES FOR HYPOGLYCEMIA PO PRN (16:00)
[2019-09-18] MEDS ORDERED: GLUCOSE 10 TABS/TUBE PO PRN (16:00)
[2019-09-18] MEDS ORDERED: GLUCAGON FOR INJ 1 MG VIAL SQ PRN (16:00)
[2019-09-18] MEDS ORDERED: DEXTROSE 50% 50 ML SYRINGE IV PRN (16:00)
[2019-09-18] MEDS: INSULIN ASPART 100 UNITS/ML 3 ML PEN SC SCH ×2 (17:08→20:24)
[2019-09-18] MEDS ORDERED: FUROSEMIDE 10 MG/ML 10 ML VIAL IV ONE (17:10)
--- NOTE | 2019-09-18 17:41 | Cardiology Consultation ---
Date of Consultation September 18, 2019 Assessment & Plan (1) Atrial fibrillation: This is a new diagnosis. It seems that developed in March of 2019. However contributes to his current symptoms is unclear. He feels that development of the edema occurred much more recently. However, this does present an indication for systemic anticoagulation and he will need to be restarted on some form of anticoagulant. He appears to have some logistical difficulty obtaining warfarin at the correctional facility. His renal function is compromised to the degree that Xarelto is likely a poor choice. However, he may be a good candidate for Eliquis. No difficulty with rate control. (2) ICD (implantable cardioverter-defibrillator) in place: Normally functioning device with nearly 100 percent ventricular pacing. His pacing rate was turned down slightly today in the hopes of reducing pacing. With more ventricular pacing he is likely to have worsening hemodynamics. Unclear if this is compromised his LV function even more. Echocardiogram is pe nding. He may be a good candidate for an upgrade to a biventricular device. (3) Ischemic cardiomyopathy: Longstanding. Clearly decompensated at this point. His outpatient medical regimen consists of an IVA-inhibitor but metoprolol tartrate. He would be better served by being on metoprolol succinate or changed to carvedilol. (4) CAD (coronary artery disease): He is known to have occlusive coronary disease. Do not believe his current symptoms are likely related to an acute coronary syndrome. Biomarkers are quite low despite extended period of symptom. His chest discomfort is more likely related to pulmonary congestion. He can be continued on his aspirin and beta-alma. Nitroglycerin could be used to reduce pulmonary vascular congestion or reduced blood pressure as necessary. (5) CHF (congestive heart failure): Clearly decompensated. Most likely explanation for his progressive weight gain is progressive worsening of his LV dysfunction or decompensation. Unclear if he has been eating more sodium recently. Oral diuretics and not appear to affect a significant diuresis. He seems to have had some diuresis here with intravenous diuretics. We will need to monitor his renal function and electrolytes closely as he loses weight. Renal function is somewhat compromised but I suspect would improve with diuresis. I would recommend: Continued b.i.d. dosing of diuretic adjusting dose to affect diuresis. Not loss 1-2 liters daily Switch metoprolol tartrate to metoprolol succinate, 50 milligrams daily Initiate systemic anticoagulation with Eliquis or warfarin, preferably Eliquis 5 milligrams twice daily Discontinue heparin once oral anticoagulant started Agree with echocardiogram Consider dietary consult for help in choosing options at the correctional facility that her low-sodium CPAP as needed. History of Present Illness Reason for Consultation: Edema, heart failure Requesting Physician: Inessa Attending Physician: Gely Wylie MD History of Present Illness The patient is a 64-year-old gentleman with a history of an ischemic cardiomyopathy, coronary artery disease, known apical aneurysm and congestive heart failure who was admitted for worsening edema and shortness of breath. According to the patient approximately 2 months ago he began to experiencing weight gain and edema. This was 1st noticeable in his scrotum and beat. He states that despite a more aggressive diuretic regimen he continued to have progressive edema that eventually involved his legs and abdomen. Patient states that he has had difficulty sleeping recently needs to sleep upright in bed for breathing purposes. He has been using CPAP for approximately 18 hours per day. He does have a sense of chest tightness and chest discomfort. However, he feels is somewhat distinct from prior symptoms of angina. He describes it more as a difficulty taking a deep breath and ate overall tightness. He feels that the size of his abdomen compromise of his breathing as well. He has not been aware of palpitations. He denies dizziness or lightheadedness. Generally speaking he spends most of his time in a wheelchair. Prior to developing this edema and breathing difficulty he was exercising but this became more difficult as his symptoms of edema worsened. He denies significant coughing. No recent fevers or chills. He did change his diet to include more vegetables. He is unclear where these vessels come from or hemorrhage sodium is in the vegetables. Allergies Allergy/AdvReac Type Severity Reaction Status Date / Time Sulfa (Sulfonamide Allergy Intermediate "RASH A Verified 09/18/19 11:50 Antibiotics) CHILD" Penicillins Allergy Mild "RASH A Verified 09/18/19 11:50 CHILD" camphor Allergy Unknown Verified 09/18/19 11:50 [From [facility] [place] (with capsicum)] capsaicin Allergy Unknown Verified 09/18/19 11:50 [From [facility] [place] (with capsicum)] menthol Allergy Unknown Verified 09/18/19 11:50 [From [facility] [place] (with capsicum)] Home Medications Home Medications Medication Instructions Recorded Confirmed Type atorvastatin 80 mg tablet 80 mg PO QAM #90 tab 03/04/19 09/18/19 History glimepiride 4 mg tablet 4 mg PO BID tab 03/04/19 09/18/19 History metformin 1,000 mg tablet 1,000 mg PO BID #180 tab 03/04/19 09/18/19 History nitroglycerin 0.4 mg sublingual 0.4 mg SL UD PRN tab 03/04/19 09/18/19 History tablet amlodipine 5 mg PO QAM 09/18/19 09/18/19 History aspirin 81 mg PO QAM 09/18/19 09/18/19 History bumetanide 2 mg PO QAM 09/18/19 09/18/19 History enalapril maleate 10 mg PO BID 09/18/19 09/18/19 History metolazone 2.5 mg PO DAILY 09/18/19 09/18/19 History metoprolol tartrate 25 mg PO BID 09/18/19 09/18/19 History Patient History Medical History CAD (coronary artery disease) CKD (chronic kidney disease) Diabetes 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, type II Dyslipidemia High cholesterol History of myocardial infarction HTN (hypertension) RYAN (obstructive sleep apnea) Surgical History History of cardiac cath History of permanent cardiac pacemaker placement Family History Other Diabetes Hypertension Social History Preferred Language: [place] Communication Ability: Effective Financial Risk Manager Required: No Beliefs That Will Affect Care: None Current Living Situation: Other Current Living Situation Comment: [facility] Other Information That Helps Us Care for You: No Feels Safe at Home: Yes Safety Concerns: Feels Safe At This Time Smoking Status: Never smoker Do You Dip or Chew Tobacco: No ; Second Hand Exposure: No ; Tobacco Cessation Education Requested by Patient: No Hx Alcohol Use: No Hx Substance Use: No Review of Systems Review of Systems: All systems reviewed & are unremarkable except as noted in HPI & below Physical Exam Physical Exam: The patient is alert and oriented. Mood and affect appeared normal. He answered all questions appropriately. HEENT: Pupils are equal and reactive to light and accommodation. Extraocular movements are intact. The sclerae are anicteric. Neuro: Cranial nerves intact Neck: Patient's neck is supple. He has palpable carotid pulses bilaterally without bruits on auscultation. The thyroid is not enlarged. Lungs: Rales in the lower lung kebede. No expiratory wheezing. Normal respiratory effort.. Cardiac: Heart demonstrates an irregular rate and rhythm. Normal S1 and S2. Holosystolic murmur variable intensity.. Pulses: The patient has palpable radial pulses bilaterally that are equal in intensity Extremities: There was no evidence of hypoperfusion. There is no cyanosis or clubbing. Wearing compression stockings. Notable anasarca with leg, scrotal, abdominal in even facial edema.. Skin: I did not appreciate any rashes on examination today. Results & Data ([facility]) Vital Signs (Past 12 Hours) Vital Signs Temp Pulse Pulse Resp BP BP Pulse Ox 09/18/19 15:42 36.4 C L 55 L 19 156/93 H 92 09/18/19 15:01 54 L 24 169/86 H 94 09/18/19 14:31 60 25 H 172/70 H 93 09/18/19 14:01 51 L 26 H 187/111 H 92 09/18/19 13:31 55 L 21 09/18/19 13:30 56 L 26 H 189/105 H 09/18/19 13:01 56 L 25 H 92 09/18/19 13:00 54 L 16 173/126 H 91 09/18/19 12:30 55 L 19 178/124 H 91 09/18/19 12:00 51 L 22 161/98 H 93 09/18/19 11:48 59 L 27 H 180/92 H 91 09/18/19 11:00 53 L 29 H 147/77 H 91 09/18/19 10:25 36.5 C 60 20 162/98 H 91 Laboratory Results Abnormal Lab Results 09/18/19 09/18/19 09/18/19 11:12 11:12 11:12 WBC 9.37 RBC 3.79 L Hgb 11.8 L Hct 35.0 L MCV 92.3 MCH 31.1 MCHC 33.7 RDW Std Deviation 51.4 H RDW Coeff of Nini 15.3 H Plt Count 199 MPV 9.8 Immature Gran % (Auto) 0.1 Neut % (Auto) 82.5 Lymph % (Auto) 8.9 [place] % (Auto) 8.3 Eos % (Auto) 0.0 Baso % (Auto) 0.2 Immature Gran # (Auto) 0.01 Neut # (Auto) 7.73 H Lymph # (Auto) 0.83 L [place] # (Auto) 0.78 H Eos # (Auto) 0.00 Baso # (Auto) 0.02 PT 11.3 INR 1.1 APTT 28.9 PTT Ratio 1.1 Sodium 138 Potassium 4.6 Chloride 108 H Carbon Dioxide 26 Anion Gap 4.0 BUN 38 H Creatinine 1.99 H Est Cr Clr Drug Dosing 47.8 Est GFR ( Amer) 39.9 Est GFR (Non-Af Amer) 34.5 BUN/Creatinine Ratio 19.1 Glucose 161 H POC Glucose Calcium 9.9 Magnesium 1.8 Total Bilirubin 0.8 AST 24 ALT 33 Alkaline Phosphatase 129 H Troponin I 0.022 NT-Pro-B Natriuret Pep Total Protein 7.4 Albumin 2.9 L Globulin 4.5 H Albumin/Globulin Ratio 0.6 L Lipase 208 TSH Free T4 09/18/19 09/18/19 09/18/19 11:12 11:12 16:50 WBC RBC Hgb Hct MCV MCH MCHC RDW Std Deviation RDW Coeff of Nini Plt Count MPV Immature Gran % (Auto) Neut % (Auto) Lymph % (Auto) [place] % (Auto) Eos % (Auto) Baso % (Auto) Immature Gran # (Auto) Neut # (Auto) Lymph # (Auto) [place] # (Auto) Eos # (Auto) Baso # (Auto) PT INR APTT PTT Ratio Sodium Potassium Chloride Carbon Dioxide Anion Gap BUN Creatinine Est Cr Clr Drug Dosing Est GFR ( Amer) Est GFR (Non-Af Amer) BUN/Creatinine Ratio Glucose POC Glucose 123 H Calcium Magnesium Total Bilirubin AST ALT Alkaline Phosphatase Troponin I NT-Pro-B Natriuret Pep 8264 H Total Protein Albumin Globulin Albumin/Globulin Ratio Lipase TSH 6.630 H Free T4 1.13 Diagnostic Findings I performed a complete device interrogation which revealed development of atrial fibrillation versus flutter in March of 2019. Patient has also had lower heart rates and has developed nearly 100 percent ventricular pacing for a few months. No other significant arrhythmias. Chest x-ray was obtained note the time of admission which revealed pulmonary edema. ECG Additional Comments: Atrial flutter with what appears to be demand ventricular pacing. PG Care Time/CCT Total # of Minutes Spent Total Time Spent with Patient: Total time spent is greater than 50% in coordination of care (as documented) at patient's floor/unit and/or counseling patient: Coding Level of Care Code 56730 Inpt Consult Level 5 Diagnoses Atrial fibrillation I48.91 ICD (implantable cardioverter-defibrillator) in place Z95.810 Ischemic cardiomyopathy I25.5 CAD (coronary artery disease) I25.10 CHF (congestive heart failure) I50.9 Heart failure chronicity: acute Heart failure type: unspecified CPT Codes Implantable Defib dual lead programming - 09820 ([id number]) 26 - PROFESSIONAL COMPONENT (1) CHF (congestive heart failure) Heart failure chronicity: acute Heart failure type: unspecified Qualified Code(s): I50.9 - Heart failure, unspecified
[2019-09-18] MEDS ORDERED: NITROGLYCERIN 2% OINTMENT 30GM TUBE EXT SCH (18:00)
[2019-09-18] MEDS ORDERED: METOPROLOL TARTRATE 25 MG TAB PO SCH (21:00)
[2019-09-18 21:24] LABS: Partial Thromboplastin Ratio 1.9
[2019-09-18 21:33] LABS: Partial Thromboplastin Time 50.5 Seconds (21.0-31.0)
[2019-09-19] MEDS: Heparin Adult STANDARD Wt-Based Dextrose 5% 25,000 units/500 mL IV SCH ×2 (05:30→21:02)
[2019-09-19] MEDS: NITROGLYCERIN 2% OINTMENT 30GM TUBE EXT SCH ×2 (05:30→12:12)
[2019-09-19 06:22] LABS: Hematocrit (blood only) 33.5 % (42-52); Hemoglobin 11.2 g/dL (14.0-18.0); Mean Corpuscular Hemoglobin 30.7 pg (25-34); Mean Corpuscular Hgb Conc 33.4 g/dL (32-36); Mean Corpuscular Volume 91.8 fL (80-100); Mean Platelet Volume 9.6 fL (7.4-10.4); Platelet Count 191 K/uL (130-400); RDW Coefficient of Variation 15.5 % (11.5-14.5); RDW Standard Deviation 52.2 fL (36.4-46.3); Red Blood Count 3.65 M/uL (4.7-6.1); White Blood Count 7.06 K/uL (4.8-10.8)
[2019-09-19 06:43] LABS: Partial Thromboplastin Ratio 2.2
[2019-09-19 06:49] LABS: Partial Thromboplastin Time 60.6 Seconds (21.0-31.0)
[2019-09-19 06:51] LABS: Estimated Average Glucose 194 mg/dl; Hemoglobin A1C 8.4 % (4.5-5.6)
[2019-09-19 06:54] LABS: Calcium 8.9 mg/dl (8.5-10.1); Creatinine Clr Calc Pharmacy 44.1 ml/min; Est GFR (African American) 36.2; Est GFR (Non-African American) 31.2; Magnesium 1.7 mg/dl (1.8-2.4)
--- NOTE | 2019-09-19 07:32 | XRay Report ---
XR chest 1V portable CLINICAL HISTORY: Fluid overload COMPARISON STUDY: There are 11/01/2020 FINDINGS: The heart is mildly enlarged. There is a left subclavian dual-chamber central venous pacema ker. There is radiographic evidence of congestive failure with bilateral pleural effusions. There are persistent basilar opacities. While likely representing atelectasis or edema, pneumonia could appear similar. IMPRESSION: Continued radiographic evidence of congestive failure with bilateral pleural effusions. T here is mild interstitial edema. There are persistent basilar opacities. ACT 112: Negative or not required by law. Electronically signed by: Arnol Mobley M.D. 09/19/2019 7:31 AM
[2019-09-19] MEDS: AMLODIPINE BESYLATE 5 MG TAB PO SCH (08:41)
[2019-09-19] MEDS: METOPROLOL SUCC 50MG EXT REL TAB PO SCH (08:41)
[2019-09-19] MEDS: ASPIRIN 81 MG ECTAB PO SCH (08:41)
[2019-09-19] MEDS: ATORVASTATIN 40 MG TAB PO SCH (08:41)
[2019-09-19] MEDS: INSULIN ASPART 100 UNITS/ML 3 ML PEN SC SCH ×4 (08:42→20:32)
--- NOTE | 2019-09-19 16:49 | Cardiology Progress Note ---
Date of Service September 19, 2019 Assessment & Plan (1) Atrial fibrillation: No symptoms. Adequate rate control. I will consider converting his heparin infusion to an oral anticoagulant. Given his renal dysfunction Eliquis may be the best option as a could be dosed at the standard 5 mg twice daily. No urgent indication for cardioversion. At some point cardioversion would be desirable given his reduced LV function and improved hemodynamics with AV synchrony. However, he has not been appropriately anticoagulated at this point. (2) ICD (implantable cardioverter-defibrillator) in place: normally functioning device. No therapies. At some point we could consider an upgrade to a biventricular device if he continues to have significant RV pacing. (3) Ischemic cardiomyopathy: Longstanding. Clearly decompensated at this point. His outpatient medical regimen consists of an IVA-inhibitor but metoprolol tartrate. He would be better served by being on metoprolol succinate or changed to carvedilol. (4) CAD (coronary artery disease): He is known to have occlusive coronary disease. Do not believe his current symptoms are likely related to an acute coronary syndrome. Biomarkers are quite low despite extended period of symptom. His chest discomfort is more likely related to pulmonary congestion. He can be continued on his aspirin and beta-alma. Nitroglycerin could be used to reduce pulmonary vascular congestion or reduced blood pressure as necessary. (5) CHF (congestive heart failure): Effective good diuresis yesterday losing almost 2 L. He is continued on a diuretic regimen today but claims to not have urinated as much. Hopefully we can continue 1-2 L loss every day. He has a considerable amount of fluid to lose. Once he is better compensated we can adjust his medical regimen to include metoprolol succinate and a oral anticoagulant. Admission and Anticipated Discharge Date Admission Date: September 18, 2019 Subjective This morning patient claims to be feeling better. Continues to have some dyspnea when bending over. However, he was able to use the bedside commode. He states that he urinate quite frequently yesterday. His sense of chest pressure and congestion appears to have resolved. Review of Systems Review of Systems: Per HPI Physical Exam Physical Exam: The patient is alert and oriented. Mood and affect appeared normal. He answered all questions appropriately. HEENT: Pupils are equal and reactive to light and accommodation. Extraocular movements are intact. The sclerae are anicteric. Neuro: Cranial nerves intact Neck: Patient's neck is supple. He has palpable carotid pulses bilaterally without bruits on auscultation. The thyroid is not enlarged. Lungs: Rales in the lower lung kebede. No expiratory wheezing. Normal respiratory effort.. Cardiac: Heart demonstrates an irregular rate and rhythm. Normal S1 and S2. Holosystolic murmur variable intensity.. Pulses: The patient has palpable radial pulses bilaterally that are equal in intensity Extremities: There was no evidence of hypoperfusion. There is no cyanosis or clubbing. Wearing compression stockings. Notable anasarca with leg, scrotal, abdominal in even facial edema.. Skin: I did not appreciate any rashes on examination today. Results & Data ([facility]) Vital Signs (Past 12 Hours) Vital Signs Temp Pulse Pulse Resp BP Pulse Ox 09/19/19 15:27 36.9 C 50 L 19 140/79 91 09/19/19 11:12 36.5 C 53 L 26 H 138/73 91 09/19/19 07:27 36.9 C 49 L 20 154/78 H 93 09/19/19 05:08 56 L 18 95 Laboratory Results Abnormal Lab Results 09/18/19 09/18/19 09/18/19 16:50 16:56 20:16 WBC RBC Hgb Hct MCV MCH MCHC RDW Std Deviation RDW Coeff of Nini Plt Count MPV APTT 50.5 H* PTT Ratio 1.9 Sodium Potassium Chloride Carbon Dioxide Anion Gap BUN Creatinine Est Cr Clr Drug Dosing Est GFR ( Amer) Est GFR (Non-Af Amer) BUN/Creatinine Ratio Glucose POC Glucose 123 H Estimat Average Glucose Hemoglobin A1c Calcium Magnesium Troponin I 0.028 Triglycerides Cholesterol LDL Cholesterol, Calc VLDL Cholesterol, Calc HDL Cholesterol Cholesterol/HDL Ratio 09/18/19 09/18/19 09/19/19 20:18 22:41 05:51 WBC RBC Hgb Hct MCV MCH MCHC RDW Std Deviation RDW Coeff of Nini Plt Count MPV APTT 60.6 H* PTT Ratio 2.2 Sodium Potassium Chloride Carbon Dioxide Anion Gap BUN Creatinine Est Cr Clr Drug Dosing Est GFR ( Amer) Est GFR (Non-Af Amer) BUN/Creatinine Ratio Glucose POC Glucose 165 H Estimat Average Glucose Hemoglobin A1c Calcium Magnesium Troponin I 0.021 Triglycerides Cholesterol LDL Cholesterol, Calc VLDL Cholesterol, Calc HDL Cholesterol Cholesterol/HDL Ratio 09/19/19 09/19/19 09/19/19 05:51 05:51 05:51 WBC 7.06 RBC 3.65 L Hgb 11.2 L Hct 33.5 L MCV 91.8 MCH 30.7 MCHC 33.4 RDW Std Deviation 52.2 H RDW Coeff of Nini 15.5 H Plt Count 191 MPV 9.6 APTT PTT Ratio Sodium 140 Potassium 4.0 Chloride 106 Carbon Dioxide 28 Anion Gap 6.0 BUN 39 H Creatinine 2.16 H Est Cr Clr Drug Dosing 44.1 Est GFR ( Amer) 36.2 Est GFR (Non-Af Amer) 31.2 BUN/Creatinine Ratio 18.0 Glucose 100 H POC Glucose Estimat Average Glucose 194 Hemoglobin A1c 8.4 H Calcium 8.9 Magnesium 1.7 L Troponin I Triglycerides 112 Cholesterol 140 LDL Cholesterol, Calc 65 VLDL Cholesterol, Calc 22 HDL Cholesterol 53 Cholesterol/HDL Ratio 3 09/19/19 09/19/19 09/19/19 07:25 11:13 16:02 WBC RBC Hgb Hct MCV MCH MCHC RDW Std Deviation RDW Coeff of Nini Plt Count MPV APTT PTT Ratio Sodium Potassium Chloride Carbon Dioxide Anion Gap BUN Creatinine Est Cr Clr Drug Dosing Est GFR ( Amer) Est GFR (Non-Af Amer) BUN/Creatinine Ratio Glucose POC Glucose 105 H 243 H 161 H Estimat Average Glucose Hemoglobin A1c Calcium Magnesium Troponin I Triglycerides Cholesterol LDL Cholesterol, Calc VLDL Cholesterol, Calc HDL Cholesterol Cholesterol/HDL Ratio PG Care Time/CCT Total # of Minutes Spent Total Time Spent with Patient: Total time spent is greater than 50% in coordination of care (as documented) at patient's floor/unit and/or counseling patient: Coding Level of Care Code 20784 Subseq Hosp Care Lvl 3 Diagnoses Atrial fibrillation I48.91 ICD (implantable cardioverter-defibrillator) in place Z95.810 Ischemic cardiomyopathy I25.5 CAD (coronary artery disease) I25.10 CHF (congestive heart failure) I50.9 Heart failure chronicity: acute Heart failure type: unspecified (1) CHF (congestive heart failure) Heart failure chronicity: acute Heart failure type: unspecified Qualified Code(s): I50.9 - Heart failure, unspecified
--- NOTE | 2019-09-19 18:15 | Hospitalist Progress Note ---
Date of Service September 19, 2019 Assessment & Plan (1) New onset atrial fibrillation: 64-year-old male with history of coronary disease, status post stent placement, ischemic cardiomyopathy, status post AICD placement, Diabetes type 2, hypertension, obstructive sleep apnea, CKD stage II presenting with shortness of breath and leg swelling #1 new onset atrial fibrillation EKG: afib, rate 64, left anterior fascicular block, ventricular paced. In ER HR 50's-60's CHADSVASC: 4 -Heart rate controlled -Metoprolol heart rate 25 mg twice daily changed to metoprolol succinate 50 mg p.o. daily -Continued on Heparin IV -Cardiology consulted Possible cardioversion once patient is adequately anticoagulated #2 acute on chronic systolic congestive heart failure exacerbation, history of AICD placement CXR: Cardiomegaly with pulmonary vascular congestion and interstitial coarsening suggestive of pulmonary edema. Bibasilar consolidative opacities suggest atelectasis or pneumonitis. Probable trace pleural effusions. Repeat echo noted -Was given Lasix IV 60 mg twice a day -Also on Nitropaste -Patient diuresed -However creatinine increased now to 2.1, baseline is 1.2 -Hold off on Lasix for today, repeat BMP tomorrow (3) Chest pain: Primary service notes: Episode CP last night and this morning. Had 2 sprays of nitroglycerin in route by EMS with resolution of chest pain Troponin: Remained 0.02 -Acute coronary syndrome unlikely per cardiology service -Continue aspirin, statin, metoprolol (4) CAD (coronary artery disease): S/P Stent -CP work up as above H/O LEFT APICAL ANEURYSM Per admitting service notes: Previously on Coumadin. Coumadin was discontinued while in [facility] -Currently on Heparin IV (5) acute kidney injury on CKD (chronic kidney disease) stage IV Present records indicate CKD. Unsure of CKD stage and baseline labs BUN: 38, Cr: 1.99, GFR: 34.5 --Scanned outpatient records reviewed, BMP from 2014 showing creatinine of 1.2, GFR 61 --On Lasix for today BMP tomorrow (6) HTN (hypertension): Stable -Continue amlodipine, metoprolol -Monitor BP (7) 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, type II: -A1c in a.m. -Hold glimepiride, metformin -Novolog sliding scale per protocol (8) RYAN (obstructive sleep apnea): -CPAP HS DVT Prophylaxis -On heparin IV Full Code as per discussion with pt Follows with Dr Rodriguez at [facility] for routine care Disposition pending anticipate discharge to [facility] when medically stable Admission and Anticipated Discharge Date Admission Date: September 18, 2019 Subjective Follow-up for new onset atrial fibrillation, acute CHF exacerbation Seen sitting up in bed, comfortable, watching TV States that he feels slightly improved compared to yesterday Still has dyspnea on minimal exertion, no cough Denies chest pain today No dizziness, headache, abdominal pain, nausea No other symptoms Review of Systems Review of Systems: All systems reviewed & are unremarkable except as noted in HPI & below Physical Exam Physical Exam: General- oriented x 3, not in distress, speaks in sentences with no effort or accessory muscle use Head- atraumatic Eyes- PERRL, EOMI, anicteric ENT- oropharynx clear Neck- supple, mild JVD, no adenopathy, no thyromegaly; carotids +2/2, no bruits appreciated Lungs-mild rales at the bases, no wheezing Heart- normal rate, irregularly irregular rhythm; no murmur, no gallop, no rub appreciated Abdomen- normal bowel sounds, nondistended, soft, nontender, no masses or hepatosplenomegaly Extremities-mild lower leg bilateral edema, no calf tenderness; peripheral pulses intact Neuro- alert, oriented x 3; CN 2-12 grossly intact; motor 5/5 bilaterally;sensation 100% on all extremities; no other gross focal neurologic deficits Skin- warm & dry Results & Data ([facility]) Vital Signs (Past 12 Hours) Vital Signs Temp Pulse Resp BP Pulse Ox 09/19/19 15:27 36.9 C 50 L 19 140/79 91 09/19/19 11:12 36.5 C 53 L 26 H 138/73 91 09/19/19 07:27 36.9 C 49 L 20 154/78 H 93 Laboratory Results Laboratory Results - last 24 hr 09/18/19 09/18/19 09/18/19 20:16 20:18 22:41 WBC RBC Hgb Hct MCV MCH MCHC RDW Std Deviation RDW Coeff of Nini Plt Count MPV APTT 50.5 H* PTT Ratio 1.9 Sodium Potassium Chloride Carbon Dioxide Anion Gap BUN Creatinine Est Cr Clr Drug Dosing Est GFR ( Amer) Est GFR (Non-Af Amer) BUN/Creatinine Ratio Glucose POC Glucose 165 H Estimat Average Glucose Hemoglobin A1c Calcium Magnesium Troponin I 0.021 Triglycerides Cholesterol LDL Cholesterol, Calc VLDL Cholesterol, Calc HDL Cholesterol Cholesterol/HDL Ratio 09/19/19 09/19/19 09/19/19 05:51 05:51 05:51 WBC 7.06 RBC 3.65 L Hgb 11.2 L Hct 33.5 L MCV 91.8 MCH 30.7 MCHC 33.4 RDW Std Deviation 52.2 H RDW Coeff of Nini 15.5 H Plt Count 191 MPV 9.6 APTT 60.6 H* PTT Ratio 2.2 Sodium 140 Potassium 4.0 Chloride 106 Carbon Dioxide 28 Anion Gap 6.0 BUN 39 H Creatinine 2.16 H Est Cr Clr Drug Dosing 44.1 Est GFR ( Amer) 36.2 Est GFR (Non-Af Amer) 31.2 BUN/Creatinine Ratio 18.0 Glucose 100 H POC Glucose Estimat Average Glucose Hemoglobin A1c Calcium 8.9 Magnesium 1.7 L Troponin I Triglycerides 112 Cholesterol 140 LDL Cholesterol, Calc 65 VLDL Cholesterol, Calc 22 HDL Cholesterol 53 Cholesterol/HDL Ratio 3 09/19/19 09/19/19 09/19/19 05:51 07:25 11:13 WBC RBC Hgb Hct MCV MCH MCHC RDW Std Deviation RDW Coeff of Nini Plt Count MPV APTT PTT Ratio Sodium Potassium Chloride Carbon Dioxide Anion Gap BUN Creatinine Est Cr Clr Drug Dosing Est GFR ( Amer) Est GFR (Non-Af Amer) BUN/Creatinine Ratio Glucose POC Glucose 105 H 243 H Estimat Average Glucose 194 Hemoglobin A1c 8.4 H Calcium Magnesium Troponin I Triglycerides Cholesterol LDL Cholesterol, Calc VLDL Cholesterol, Calc HDL Cholesterol Cholesterol/HDL Ratio 09/19/19 16:02 WBC RBC Hgb Hct MCV MCH MCHC RDW Std Deviation RDW Coeff of Nini Plt Count MPV APTT PTT Ratio Sodium Potassium Chloride Carbon Dioxide Anion Gap BUN Creatinine Est Cr Clr Drug Dosing Est GFR ( Amer) Est GFR (Non-Af Amer) BUN/Creatinine Ratio Glucose POC Glucose 161 H Estimat Average Glucose Hemoglobin A1c Calcium Magnesium Troponin I Triglycerides Cholesterol LDL Cholesterol, Calc VLDL Cholesterol, Calc HDL Cholesterol Cholesterol/HDL Ratio
[2019-09-19] MEDS: MAGNESIUM OXIDE 400 MG TAB PO SCH (20:32)
[2019-09-20 07:44] LABS: Partial Thromboplastin Ratio 2.8
[2019-09-20 07:48] LABS: Partial Thromboplastin Time 74.9 Seconds (21.0-31.0)
[2019-09-20 08:17] LABS: Basophils # (auto) 0.01 K/uL (0-0.2); Basophils % (auto) 0.2 %; Eosinophils # (auto) 0.01 K/uL (0-0.5); Eosinophils % (auto) 0.2 %; Hematocrit (blood only) 31.9 % (42-52); Hemoglobin 10.6 g/dL (14.0-18.0); Lymphocytes # (auto) 0.92 K/uL (1.2-3.4); Lymphocytes % (auto) 17.9 %; Mean Corpuscular Hgb Conc 33.2 g/dL (32-36); Mean Corpuscular Volume 93.3 fL (80-100); Mean Platelet Volume 9.7 fL (7.4-10.4); Monocytes # (auto) 0.79 K/uL (0.11-0.59); Monocytes % (auto) 15.3 %; Neutrophils # (auto) 3.42 K/uL (1.4-6.5); Neutrophils % (auto) 66.4 %; Platelet Count 165 K/uL (130-400); RDW Coefficient of Variation 15.4 % (11.5-14.5); Red Blood Count 3.42 M/uL (4.7-6.1); White Blood Count 5.15 K/uL (4.8-10.8)
[2019-09-20 08:25] LABS: BUN Creatinine Ratio 19.5 (10-20); Calcium 8.5 mg/dl (8.5-10.1); Creatinine Clr Calc Pharmacy 40.1 ml/min; Est GFR (African American) 34.2; Est GFR (Non-African American) 29.5; Potassium 3.8 mmol/L (3.5-5.1)
[2019-09-20] MEDS: ASPIRIN 81 MG ECTAB PO SCH (08:41)
[2019-09-20] MEDS: ATORVASTATIN 40 MG TAB PO SCH (08:41)
[2019-09-20] MEDS: METOPROLOL SUCC 50MG EXT REL TAB PO SCH (08:41)
[2019-09-20] MEDS: MAGNESIUM OXIDE 400 MG TAB PO SCH ×2 (08:41→20:41)
[2019-09-20] MEDS: INSULIN ASPART 100 UNITS/ML 3 ML PEN SC SCH ×4 (08:42→20:40)
[2019-09-20] MEDS: AMLODIPINE BESYLATE 5 MG TAB PO SCH (08:42)
--- NOTE | 2019-09-20 09:55 | Hospitalist Progress Note ---
Date of Service September 20, 2019 Assessment & Plan (1) New onset atrial fibrillation: 64-year-old male with history of coronary disease, status post stent placement, ischemic cardiomyopathy, status post AICD placement, Diabetes type 2, hypertension, obstructive sleep apnea, CKD stage II presenting with shortness of breath and leg swelling #1 new onset atrial fibrillation EKG: afib, rate 64, left anterior fascicular block, ventricular paced. In ER HR 50's-60's CHADSVASC: 4 -Remains heart rate controlled -Metoprolol heart rate 25 mg twice daily changed to metoprolol succinate 50 mg p.o. daily -Transition from heparin to Eliquis -Discussed with cardiology service Dr. carson Possible cardioversion once patient is adequately anticoagulated #2 acute on chronic systolic congestive heart failure exacerbation, history of AICD placement CXR: Cardiomegaly with pulmonary vascular congestion and interstitial coarsening suggestive of pulmonary edema. Bibasilar consolidative opacities suggest atelectasis or pneumonitis. Probable trace pleural effusions. Repeat echo noted -Was given Lasix IV 60 mg twice a day -Also on Nitropaste -Patient diuresed -However creatinine increased now to 2.2, baseline is 1.2 -Records being obtained from [facility] to establish patient's renal function for the past 3 years Rubberizing Mechanic consulted (3) Chest pain: Primary service notes: Episode CP last night and this morning. Had 2 sprays of nitroglycerin in route by EMS with resolution of chest pain Troponin: Remained 0.02 -Acute coronary syndrome unlikely per cardiology service -Continue aspirin, statin, metoprolol (4) CAD (coronary artery disease): S/P Stent -CP work up as above H/O LEFT APICAL ANEURYSM Per admitting service notes: Previously on Coumadin. Coumadin was discontinued while in care home -Heparin being transitioned to Eliquis (5) acute kidney injury on CKD (chronic kidney disease) stage IV Present records indicate CKD. Unsure of CKD stage and baseline labs BUN: 38, Cr: 1.99, GFR: 34.5 --Scanned outpatient records reviewed, BMP from 2014 showing creatinine of 1.2, GFR 61 --Rubberizing Mechanic consulted for Lasix recommendations (6) HTN (hypertension): Stable -Continue amlodipine, metoprolol -Monitor BP (7) 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, type II: -A1c in a.m. -Hold glimepiride, metformin -Novolog sliding scale per protocol (8) RYAN (obstructive sleep apnea): -CPAP HS DVT Prophylaxis -On Eliquis Full Code as per discussion with pt Follows with Dr Rodriguez at [facility] for routine care Disposition pending anticipate discharge to [facility] when medically stable Admission and Anticipated Discharge Date Admission Date: September 18, 2019 Subjective Follow-up for CHF exacerbation, atrial fibrillation, other problems noted below Seen resting in bed, using CPAP not in distress States he feels improved compared to yesterday but breathing is about this No chest pain, no palpitations no dyspnea No problems with urination Denies other symptom Review of Systems Review of Systems: All systems reviewed & are unremarkable except as noted in HPI & below Physical Exam Physical Exam: General- oriented x 3, not in distress, speaks in sentences with no effort or accessory muscle use Eyes- anicteric Neck- no JVD Lungs-positive mild rales at the bases, no wheezing Heart- normal rate, irregularly irregular rhythm; no murmurs Abdomen- normal bowel sounds, nondistended, soft, nontender Extremities-trace pretibial edema, no calf tenderness Neuro- alert, oriented x 3; no gross focal neurologic deficits Skin- warm & dry Results & Data ([facility]) Vital Signs (Past 12 Hours) Vital Signs Temp Pulse Pulse Resp BP Pulse Ox 09/20/19 08:14 36.8 C 76 20 145/105 H 90 09/20/19 08:00 53 L 09/20/19 03:31 37.1 C 51 L 18 131/68 93 09/20/19 03:08 49 L 16 94 09/20/19 01:28 50 L 22 92 09/19/19 23:08 36.6 C 50 L 18 164/86 H 96 09/19/19 22:53 48 L 20 94 Laboratory Results Laboratory Results - last 24 hr 09/19/19 09/20/19 09/20/19 20:11 07:00 07:05 WBC 5.15 RBC 3.42 L Hgb 10.6 L Hct 31.9 L MCV 93.3 MCH 31.0 MCHC 33.2 RDW Std Deviation 53.0 H RDW Coeff of Nini 15.4 H Plt Count 165 MPV 9.7 Immature Gran % (Auto) 0.0 Neut % (Auto) 66.4 Lymph % (Auto) 17.9 Reynolds % (Auto) 15.3 Eos % (Auto) 0.2 Baso % (Auto) 0.2 Immature Gran # (Auto) 0.00 Neut # (Auto) 3.42 Lymph # (Auto) 0.92 L Reynolds # (Auto) 0.79 H Eos # (Auto) 0.01 Baso # (Auto) 0.01 APTT 74.9 H* PTT Ratio 2.8 Sodium Potassium Chloride Carbon Dioxide Anion Gap BUN Creatinine Est Cr Clr Drug Dosing Est GFR ( Amer) Est GFR (Non-Af Amer) BUN/Creatinine Ratio Glucose POC Glucose 198 H Calcium Magnesium Urine Color Urine Appearance Urine pH Ur Specific Fisher Urine Protein Urine Glucose (UA) Urine Ketones Urine Blood Urine Nitrite Urine Bilirubin Urine Urobilinogen Ur Leukocyte Esterase Urine WBC (Auto) Urine RBC (Auto) U Hyaline Cast (Auto) U Epithel Cells (Auto) Urine Bacteria (Auto) Ur Random Creatinine U Random Total Protein Protein/Creatinin Ratio 09/20/19 09/20/19 09/20/19 07:05 07:30 11:29 WBC RBC Hgb Hct MCV MCH MCHC RDW Std Deviation RDW Coeff of Nini Plt Count MPV Immature Gran % (Auto) Neut % (Auto) Lymph % (Auto) Reynolds % (Auto) Eos % (Auto) Baso % (Auto) Immature Gran # (Auto) Neut # (Auto) Lymph # (Auto) Reynolds # (Auto) Eos # (Auto) Baso # (Auto) APTT PTT Ratio Sodium 141 Potassium 3.8 Chloride 110 H Carbon Dioxide 26 Anion Gap 6.0 BUN 44 H Creatinine 2.26 H Est Cr Clr Drug Dosing 40.1 Est GFR ( Amer) 34.2 Est GFR (Non-Af Amer) 29.5 BUN/Creatinine Ratio 19.5 Glucose 130 H POC Glucose 162 H 234 H Calcium 8.5 Magnesium 2.0 Urine Color Urine Appearance Urine pH Ur Specific Fisher Urine Protein Urine Glucose (UA) Urine Ketones Urine Blood Urine Nitrite Urine Bilirubin Urine Urobilinogen Ur Leukocyte Esterase Urine WBC (Auto) Urine RBC (Auto) U Hyaline Cast (Auto) U Epithel Cells (Auto) Urine Bacteria (Auto) Ur Random Creatinine U Random Total Protein Protein/Creatinin Ratio 09/20/19 09/20/19 09/20/19 11:35 13:52 16:20 WBC RBC Hgb Hct MCV MCH MCHC RDW Std Deviation RDW Coeff of Nini Plt Count MPV Immature Gran % (Auto) Neut % (Auto) Lymph % (Auto) Reynolds % (Auto) Eos % (Auto) Baso % (Auto) Immature Gran # (Auto) Neut # (Auto) Lymph # (Auto) Reynolds # (Auto) Eos # (Auto) Baso # (Auto) APTT 55.6 H* PTT Ratio 2.1 Sodium Potassium Chloride Carbon Dioxide Anion Gap BUN Creatinine Est Cr Clr Drug Dosing Est GFR ( Amer) Est GFR (Non-Af Amer) BUN/Creatinine Ratio Glucose POC Glucose Calcium Magnesium Urine Color Yellow Urine Appearance Clear Urine pH 6.5 Ur Specific Fisher 1.018 Urine Protein 4+ H Urine Glucose (UA) 2+ H Urine Ketones Negative Urine Blood 1+ H Urine Nitrite Negative Urine Bilirubin Negative Urine Urobilinogen Negative Ur Leukocyte Esterase Trace H Urine WBC (Auto) >30 H Urine RBC (Auto) 10-30 H U Hyaline Cast (Auto) 1-5 U Epithel Cells (Auto) 0-5 Urine Bacteria (Auto) 1+ H Ur Random Creatinine 64.5 U Random Total Protein 494.1 H Protein/Creatinin Ratio 7.7 H 09/20/19 16:24 WBC RBC Hgb Hct MCV MCH MCHC RDW Std Deviation RDW Coeff of Nini Plt Count MPV Immature Gran % (Auto) Neut % (Auto) Lymph % (Auto) Reynolds % (Auto) Eos % (Auto) Baso % (Auto) Immature Gran # (Auto) Neut # (Auto) Lymph # (Auto) Reynolds # (Auto) Eos # (Auto) Baso # (Auto) APTT PTT Ratio Sodium Potassium Chloride Carbon Dioxide Anion Gap BUN Creatinine Est Cr Clr Drug Dosing Est GFR ( Amer) Est GFR (Non-Af Amer) BUN/Creatinine Ratio Glucose POC Glucose 154 H Calcium Magnesium Urine Color Urine Appearance Urine pH Ur Specific Fisher Urine Protein Urine Glucose (UA) Urine Ketones Urine Blood Urine Nitrite Urine Bilirubin Urine Urobilinogen Ur Leukocyte Esterase Urine WBC (Auto) Urine RBC (Auto) U Hyaline Cast (Auto) U Epithel Cells (Auto) Urine Bacteria (Auto) Ur Random Creatinine U Random Total Protein Protein/Creatinin Ratio
[2019-09-20 11:47] LABS: Appearance Urine Clear (Clear); Bacteria Urine Automated 1+ (Negative); Bilirubin Urine Negative (Negative); Blood Urine 1+ (Negative); Color Urine Yellow; Epithelial Cell Urine Auto 0-5 /lpf (0-5); Glucose Urine UA 2+ (Negative); Ketones Urine Negative (Negative); Leukocyte Esterase Urine Trace (Negative); Nitrite Urine Negative (Negative); Protein Urine 4+ (Negative); Specific Gravity Urine 1.018 (1.000-1.030); Urobilinogen Urine Negative (Negative); WBC Urine Automated >30 /hpf (0-5); pH Urine 6.5 (4.5-7.5)
--- NOTE | 2019-09-20 12:55 | Nephrology Consultation ---
Date of Consultation September 20, 2019 Assessment & Plan (1) Fluid overload: based on imaging, HF hx, exam, pt ROS -- certainly acute on chronic HF; could also have component of nephrotic syndrome -ordered lasix 20 mg IV bid17 tomorrow; will get 2 doses in today as well -recommend daily STANDING wts and so ordered -cont FR and Na restrictions -f/u cardiology recs for HF Present on Admission?: Yes (2) CKD (chronic kidney disease): unknown baseline creatinine; was 0.8 baseline in 2014 but at that time a lready w/ 1-2 gm protienuria. chemistries acceptable; fluid OL as above. 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 He is on <2 gm daily Na diet and 1.5L FR. He is getting amlodipi ne 5 mg daily, metoprolol 50 mg q AM; he is on a heparin gtt. Has had no diuretics or other nephrotoxic meds this admission. No IV contrast or abtx given. He presented w/ creatinine of 2.0 on 09/18; it is up to 2.3 today. Unknown baseline renal function. We do have records in [facility] of creatinine 0.8 consistently from 2007-April 2015. Also w/ significant proteinuria historically >> 2077 mg daily in 2013 and 1621 mg daily in 2014. Pt has seen nephro via video at facility a few days prior to admission he states. He tells me he was on hctz, then changed to lasix 20 mg daily then lasix 80 mg daily recently. He also endorses more orthopnea just prior to admission and worsening edema for the preceding 2 wks. Also reports weight gain 40 lb since early July, including 12 lb gain over 48 hrs this week. he does acknowledge scales/wts all done in clinic/on different scales -- none according to HF daily wt techniques. Also endorse weeks of progressive scrotal swelling. No voiding or GI complaints. No rash. No chest pain/palpitations. Allergies Allergy/AdvReac Type Severity Reaction Status Date / Time Sulfa (Sulfonamide Allergy Intermediate "RASH A Verified 09/18/19 11:50 Antibiotics) CHILD" Penicillins Allergy Mild "RASH A Verified 09/18/19 11:50 CHILD" camphor Allergy Unknown Verified 09/18/19 11:50 [From [place] (with capsicum)] capsaicin Allergy Unknown Verified 09/18/19 11:50 [From [place] (with capsicum)] menthol Allergy Unknown Verified 09/18/19 11:50 [From [place] (with capsicum)] Home Medications Home Medications Medication Instructions Recorded Confirmed Type atorvastatin 80 mg tablet 80 mg PO QAM #90 tab 03/04/19 09/18/19 History glimepiride 4 mg tablet 4 mg PO BID tab 03/04/19 09/18/19 History metformin 1,000 mg tablet 1,000 mg PO BID #180 tab 03/04/19 09/18/19 History nitroglycerin 0.4 mg sublingual 0.4 mg SL UD PRN tab 03/04/19 09/18/19 History tablet amlodipine 5 mg PO QAM 09/18/19 09/18/19 History aspirin 81 mg PO QAM 09/18/19 09/18/19 History bumetanide 2 mg PO QAM 09/18/19 09/18/19 History enalapril maleate 10 mg PO BID 09/18/19 09/18/19 History metolazone 2.5 mg PO DAILY 09/18/19 09/18/19 History metoprolol tartrate 25 mg PO BID 09/18/19 09/18/19 History Patient History Medical History CAD (coronary artery disease) CKD (chronic kidney disease) Diabetes 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, type II Dyslipidemia High cholesterol History of myocardial infarction HTN (hypertension) RYAN (obstructive sleep apnea) Proteinuria Surgical History History of cardiac cath History of permanent cardiac pacemaker placement Family History Other Diabetes Hypertension Social History Preferred Language: Moldovan Communication Ability: Effective Security Rover Required: No Beliefs That Will Affect Care: None Current Living Situation: Other Current Living Situation Comment: [facility] Other Information That Helps Us Care for You: No Feels Safe at Home: Yes Safety Concerns: Feels Safe At This Time Smoking Status: Never smoker Do You Dip or Chew Tobacco: No ; Second Hand Exposure: No ; Tobacco Cessation Education Requested by Patient: No Hx Alcohol Use: No Hx Substance Use: No Review of Systems Review of Systems: All systems reviewed & are unremarkable except as noted in HPI & below Physical Exam Constitutional: well developed, well nourished and cooperative; no acute distress (on RA) Eyes: EOM intact bilaterally periorbital edema ENMT: Ears: no external ear abnormality Nose: no external nose abnormality Mouth: + dry oral mucous membranes Neck: no nuchal rigidity Respiratory: normal respiratory effort Auscultation: lungs clear to auscultation bilaterally, + breath sounds absent (BL bases) and + diminished lung sounds Cardiovascular: Rate/Rhythm: regular rate and regular rhythm Extremities: + edema (1-2+ pretibial/pedal) Gastrointestinal (Abdomen): Inspection/Auscultation: normal bowel sounds Percussion/Palpation: abdomen soft; abdomen nontender and no ascites Musculoskeletal: Extremities: strength 5/5 throughout Skin: no rashes, warm and dry Neurologic: hawng, fluent speech, no tremor Psychiatric: A+Ox3, euthymic affect Genitourinary: no thornton Results & Data Vital Signs (Past 12 Hours) Vital Signs Temp Pulse Pulse Resp BP Pulse Ox 09/20/19 11:33 36.5 C 90 22 143/70 H 92 09/20/19 08:14 36.8 C 76 20 145/105 H 90 09/20/19 08:00 53 L 09/20/19 03:31 37.1 C 51 L 18 131/68 93 09/20/19 03:08 49 L 16 94 09/20/19 01:28 50 L 22 92 Laboratory Results 09/20/19 07:05 09/20/19 07:05 UACM today 4+ protein, 2+ glucose, 1+ blood; clear yellow 1018, >30 wbc, 10-30 RBC, 1+ bacteria; 0-5 epi's Diagnostic Findings cxr yesterday Continued radiographic evidence of congestive failure with bilateral pleural effusions. There is mild interstitial edema. There are persistent basilar opacities. TTE yesterday EF 25-30%; diffuse LV hypo-/akinesis moderate aortic sclerosis w/o stenosis unchanged since 2013
--- NOTE | 2019-09-20 13:39 | Ultrasound Report ---
US renal/blad retro comp HISTORY: Renal insufficiency acute kidney injury COMPARISON: None. FINDINGS: Right kidney: Maximum dimension 10.5 cm. No evidence for hydronephrosis. Several cysts are present la rgest of which measures 6 cm at maximum dimension. Normal corticomedullary differentiation and cortic al thickness. Left kidney: Maximum dimension 10.2 cm. No evidence for hydronephrosis. Several cysts the largest of which measures 1.8 cm. Normal corticomedullary differentiation and cortical thickness. Bladder: No bladder wall thickening. The bilateral ureteral jets were identified. IMPRESSION: 1. Bilateral renal cysts. 2. No evidence for hydronephrosis. ACT 112: Negative or not required by law. The above report was generated using voice recognition software. It may contain grammatical, syntax or spelling errors. Electronically signed by: Al Rock M.D. 09/20/2019 1:37 PM
[2019-09-20 14:28] LABS: Partial Thromboplastin Ratio 2.1; Partial Thromboplastin Time 55.6 Seconds (21.0-31.0)
[2019-09-20] MEDS: APIXABAN 5 MG TABLET PO SCH ×2 (14:39→21:58)
--- NOTE | 2019-09-20 15:06 | Cardiology Progress Note ---
Date of Service September 20, 2019 Assessment & Plan (1) Atrial fibrillation: No symptoms. Adequate rate control. Will start anticoagulation with Eliquis. Can discontinue heparin. In few weeks we could consider cardioversion. (2) ICD (implantable cardioverter-defibrillator) in place: normally functioning device. No therapies. At some point we could consider an upgrade to a biventricular device if he continues to have significant RV pacing. (3) Ischemic cardiomyopathy: Longstanding. Clearly decompensated at this point. His outpatient medical regimen consists of an IVA-inhibitor but metoprolol tartrate. He would be better served by being on metoprolol succinate or changed to carvedilol. (4) CAD (coronary artery disease): He is known to have occlusive coronary disease. Do not believe his current symptoms are likely related to an acute coronary syndrome. Biomarkers are quite low despite extended period of symptom. His chest discomfort is more likely related to pulmonary congestion. He can be continued on his aspirin and beta-alma. Currently using nitroglycerin for symptom improvement. (5) CHF (congestive heart failure): Will need re-initiation of diuretic therapy. Goal 1-2 liters lost per day. Monitor electrolytes and renal function closely. I will be away from the hospital over the next 2 days. Please contact the on- call Mt any tariff inspector if there are additional questions or concerns during that time. Admission and Anticipated Discharge Date Admission Date: September 18, 2019 Subjective This afternoon the patient claims to be feeling better overall. He thinks his breathing is improved. He has been ambulating to the toilet to urinate. Occasional dizziness when lying his head back and staring at the ceiling. No sense of palpitation. No chest pain. Review of Systems Review of Systems: Per HPI Physical Exam Physical Exam: The patient is alert and oriented. Mood and affect appeared normal. He answered all questions appropriately. HEENT: Pupils are equal and reactive to light and accommodation. Extraocular movements are intact. The sclerae are anicteric. Neuro: Cranial nerves intact Neck: Patient's neck is supple. He has palpable carotid pulses bilaterally without bruits on auscultation. The thyroid is not enlarged. Lungs: Rales in the lower lung kebede. No expiratory wheezing. Normal respiratory effort.. Cardiac: Heart demonstrates an irregular rate and rhythm. Normal S1 and S2. Holosystolic murmur variable intensity.. Pulses: The patient has palpable radial pulses bilaterally that are equal in intensity Extremities: There was no evidence of hypoperfusion. There is no cyanosis or clubbing. Wearing compression stockings. Notable anasarca with leg, scrotal, abdominal in even facial edema.. Skin: I did not appreciate any rashes on examination today. Results & Data ([facility]) Vital Signs (Past 12 Hours) Vital Signs Temp Pulse Pulse Resp BP Pulse Ox 09/20/19 11:33 36.5 C 90 22 143/70 H 92 09/20/19 08:14 36.8 C 76 20 145/105 H 90 09/20/19 08:00 53 L 09/20/19 03:31 37.1 C 51 L 18 131/68 93 09/20/19 03:08 49 L 16 94 Laboratory Results Abnormal Lab Results 09/19/19 09/19/19 09/20/19 16:02 20:11 07:00 WBC RBC Hgb Hct MCV MCH MCHC RDW Std Deviation RDW Coeff of Nini Plt Count MPV Immature Gran % (Auto) Neut % (Auto) Lymph % (Auto) [place] % (Auto) Eos % (Auto) Baso % (Auto) Immature Gran # (Auto) Neut # (Auto) Lymph # (Auto) [place] # (Auto) Eos # (Auto) Baso # (Auto) APTT 74.9 H* PTT Ratio 2.8 Sodium Potassium Chloride Carbon Dioxide Anion Gap BUN Creatinine Est Cr Clr Drug Dosing Est GFR ( Amer) Est GFR (Non-Af Amer) BUN/Creatinine Ratio Glucose POC Glucose 161 H 198 H Calcium Magnesium Urine Color Urine Appearance Urine pH Ur Specific [place] Urine Protein Urine Glucose (UA) Urine Ketones Urine Blood Urine Nitrite Urine Bilirubin Urine Urobilinogen Ur Leukocyte Esterase Urine WBC (Auto) Urine RBC (Auto) U Hyaline Cast (Auto) U Epithel Cells (Auto) Urine Bacteria (Auto) 09/20/19 09/20/19 09/20/19 07:05 07:05 07:30 WBC 5.15 RBC 3.42 L Hgb 10.6 L Hct 31.9 L MCV 93.3 MCH 31.0 MCHC 33.2 RDW Std Deviation 53.0 H RDW Coeff of Nini 15.4 H Plt Count 165 MPV 9.7 Immature Gran % (Auto) 0.0 Neut % (Auto) 66.4 Lymph % (Auto) 17.9 [place] % (Auto) 15.3 Eos % (Auto) 0.2 Baso % (Auto) 0.2 Immature Gran # (Auto) 0.00 Neut # (Auto) 3.42 Lymph # (Auto) 0.92 L [place] # (Auto) 0.79 H Eos # (Auto) 0.01 Baso # (Auto) 0.01 APTT PTT Ratio Sodium 141 Potassium 3.8 Chloride 110 H Carbon Dioxide 26 Anion Gap 6.0 BUN 44 H Creatinine 2.26 H Est Cr Clr Drug Dosing 40.1 Est GFR ( Amer) 34.2 Est GFR (Non-Af Amer) 29.5 BUN/Creatinine Ratio 19.5 Glucose 130 H POC Glucose 162 H Calcium 8.5 Magnesium 2.0 Urine Color Urine Appearance Urine pH Ur Specific [place] Urine Protein Urine Glucose (UA) Urine Ketones Urine Blood Urine Nitrite Urine Bilirubin Urine Urobilinogen Ur Leukocyte Esterase Urine WBC (Auto) Urine RBC (Auto) U Hyaline Cast (Auto) U Epithel Cells (Auto) Urine Bacteria (Auto) 09/20/19 09/20/19 09/20/19 11:29 11:35 13:52 WBC RBC Hgb Hct MCV MCH MCHC RDW Std Deviation RDW Coeff of Nini Plt Count MPV Immature Gran % (Auto) Neut % (Auto) Lymph % (Auto) [place] % (Auto) Eos % (Auto) Baso % (Auto) Immature Gran # (Auto) Neut # (Auto) Lymph # (Auto) [place] # (Auto) Eos # (Auto) Baso # (Auto) APTT 55.6 H* PTT Ratio 2.1 Sodium Potassium Chloride Carbon Dioxide Anion Gap BUN Creatinine Est Cr Clr Drug Dosing Est GFR ( Amer) Est GFR (Non-Af Amer) BUN/Creatinine Ratio Glucose POC Glucose 234 H Calcium Magnesium Urine Color Yellow Urine Appearance Clear Urine pH 6.5 Ur Specific [place] 1.018 Urine Protein 4+ H Urine Glucose (UA) 2+ H Urine Ketones Negative Urine Blood 1+ H Urine Nitrite Negative Urine Bilirubin Negative Urine Urobilinogen Negative Ur Leukocyte Esterase Trace H Urine WBC (Auto) >30 H Urine RBC (Auto) 10-30 H U Hyaline Cast (Auto) 1-5 U Epithel Cells (Auto) 0-5 Urine Bacteria (Auto) 1+ H ECG Additional Comments: Telemetry demonstrates atrial fibrillation/flutter with controlled ventricular response and occasional ventricular pacing. PG Care Time/CCT Total # of Minutes Spent Total Time Spent with Patient: Total time spent is greater than 50% in coordination of care (as documented) at patient's floor/unit and/or counseling patient: Coding Level of Care Code 28925 Subseq Hosp Care Lvl 3 Diagnoses Atrial fibrillation I48.91 ICD (implantable cardioverter-defibrillator) in place Z95.810 Ischemic cardiomyopathy I25.5 CAD (coronary artery disease) I25.10 CHF (congestive heart failure) I50.9 Heart failure chronicity: acute Heart failure type: unspecified (1) CHF (congestive heart failure) Heart failure chronicity: acute Heart failure type: unspecified Qualified Code(s): I50.9 - Heart failure, unspecified
[2019-09-20] MEDS ORDERED: FUROSEMIDE 20 MG in SYRINGE 0 ML IV STA (15:53)
[2019-09-20 18:59] LABS: Creatinine Urine Random 64.5 mg/dl
[2019-09-20 19:01] LABS: Protein Creatinine Ratio Urine 7.7 (0-0.2); Total Protein Urine Random 494.1 mg/dl (0-11.9)
[2019-09-20] MEDS ORDERED: FUROSEMIDE 20 MG in SYRINGE 0 ML IV SCH (20:00)
[2019-09-21 07:48] LABS: Basophils # (auto) 0.02 K/uL (0-0.2); Basophils % (auto) 0.3 %; Eosinophils # (auto) 0.01 K/uL (0-0.5); Eosinophils % (auto) 0.2 %; Hematocrit (blood only) 34.8 % (42-52); Hemoglobin 11.4 g/dL (14.0-18.0); Immature Granulocytes # (auto) 0.01 K/uL (0.00-0.02); Immature Granulocytes % (auto) 0.2 %; Lymphocytes # (auto) 0.99 K/uL (1.2-3.4); Mean Corpuscular Hemoglobin 30.6 pg (25-34); Mean Corpuscular Hgb Conc 32.8 g/dL (32-36); Mean Corpuscular Volume 93.5 fL (80-100); Mean Platelet Volume 9.7 fL (7.4-10.4); Monocytes # (auto) 0.62 K/uL (0.11-0.59); Neutrophils # (auto) 4.52 K/uL (1.4-6.5); Neutrophils % (auto) 73.3 %; Platelet Count 183 K/uL (130-400); RDW Coefficient of Variation 15.5 % (11.5-14.5); RDW Standard Deviation 52.4 fL (36.4-46.3); Red Blood Count 3.72 M/uL (4.7-6.1); White Blood Count 6.17 K/uL (4.8-10.8)
[2019-09-21 08:27] LABS: BUN Creatinine Ratio 21.5 (10-20); Calcium 8.9 mg/dl (8.5-10.1); Creatinine Clr Calc Pharmacy 41.2 ml/min; Est GFR (African American) 35.4; Est GFR (Non-African American) 30.5; Potassium 3.9 mmol/L (3.5-5.1)
[2019-09-21] MEDS: MAGNESIUM OXIDE 400 MG TAB PO SCH ×2 (08:42→19:49)
[2019-09-21] MEDS: METOPROLOL SUCC 50MG EXT REL TAB PO SCH (08:42)
[2019-09-21] MEDS: ASPIRIN 81 MG ECTAB PO SCH (08:42)
[2019-09-21] MEDS: APIXABAN 5 MG TABLET PO SCH ×2 (08:42→19:49)
[2019-09-21] MEDS: FUROSEMIDE 20 MG in SYRINGE 0 ML IV SCH ×2 (08:42→17:48)
[2019-09-21] MEDS: ATORVASTATIN 40 MG TAB PO SCH (08:43)
[2019-09-21] MEDS: AMLODIPINE BESYLATE 5 MG TAB PO SCH (08:43)
[2019-09-21] MEDS: INSULIN ASPART 100 UNITS/ML 3 ML PEN SC SCH ×4 (08:44→21:09)
[2019-09-21] MEDS: Heparin Adult STANDARD Wt-Based Dextrose 5% 25,000 units/500 mL IV SCH (09:12)
[2019-09-21] MEDS ORDERED: PHARMACY GLYCEMIC MGMT CONSULT PRN (12:05)
[2019-09-21] MEDS ORDERED: INSULIN GLARGINE SOLOSTAR 100 UNITS/ML 3 ML PEN SC ONE (12:15)
--- NOTE | 2019-09-21 14:06 | Pharmacy Report ---
Glycemic Control Consultation - Date of Service September 21, 2019 - Scope Scope: Glycemic Pharmacist consulted by Dr Castillo on for glycemic control and to write orders per [facility] inpatient glycemic control protocol - Objective Weight: 101.6 kg Accuchecks BSG (last 24hrs): 09/20/19 09/20/19 09/21/19 16:24 20:33 07:17 Glucose 155 H POC Glucose 154 H 206 H 09/21/19 09/21/19 09/21/19 07:37 11:26 11:27 Glucose POC Glucose 165 H 343 H* 335 H* Laboratory Data (last 24hrs): 09/21/19 07:17 Potassium 3.9 Carbon Dioxide 25 Anion Gap 7.0 Creatinine 2.20 H Est Cr Clr Drug Dosing 41.2 HbA1c: Hemoglobin A1c 8.4 % (4.5-5.6) H 09/19/19 05:51 - Recent Pertinent Medications Outpatient Anti-diabetic Regimen: * Metformin 1 gm BID * Glimepiride 6 mg daily * A1c = 8.4 % 09/19/19 The patient is currently receiving: * Basal insulin: None * Correctional Insulin: Novolog Correction per scale ACHS Goal Range: Low 120 mg/dL - High 160 mg/dL Correction Factor: 30 mg/dL/unit * Prandial insulin: Per carb ratio of 1 unit per 10 grams CHO consumed Risk Factors for Insulin Resistance: * Diet: T2DM - Assessment & Plan Assessment & Plan: ASSESSMENT: * 64 y/o male with PMH pertinent for CAD s/p stent, ischemic cardiomyopathy s/p ICD, history left apical aneurysm, DM II, HTN, dyslipidemia, RYAN, CKD, admitted for anasarca. * Pt is maintained on oral antidiabetic agents as an outpatient * Oral agents are not recommended for inpatient use d/t drug interactions, changing PO intake, and difficulty titrating for acute hyper/hypoglycemia. ADA recommends re-initiating outpatient oral agents 1-2 days prior to discharge if/when appropriate if they were held on admission. * Oral agents have been held for admission and utilizing SQ bolus insulin regimen which is the recommended regimen for inpatient glycemic control. * Pharmacy was consulted for BSG of 343 mg/dL, recheck of 335 mg/dL, at lunch today. Postprandial BSGs have been trending high but this is the highest this admission. No identifiable causes from PO intake/medications, etc. * Will plan to tighten CF/CR since postprandial BSGs have been elevated. [place] > 160 mg/dL; therefore, will add 0.2 units/kg of basal insulin. PLAN FOR INPATIENT GLYCEMIC CONTROL: * Holding outpatient oral diabetes medications * Basal insulin - ADD * Lantus 15 units daily * Bolus insulin - TIGHTEN CF/CR/GOAL RANGE * NovoLog per scale ACHS or Q6hrs while NPO * Goal Range: Low 110 mg/dL - High 150 mg/dL * Correction Factor: 25 mg/dL/unit * Nutritional / Prandial insulin per carb ratio of 1 unit per 8 grams CHO consumed * Recheck BSG at 1400 to ensure it has improved * Please note that the plan above was derived based on current level of insulin resistance and hospital stress. These recommendations are appropriate for inpatient admission only. Plan of care upon discharge will need to be reassessed to avoid potential outpatient hypo/hyperglycemia. Thank you.
[2019-09-21 15:46] LABS: Beta-Hydroxybutyrate 1.74 mg/dl (0.2-2.81)
[2019-09-21] MEDS ORDERED: INSULIN HUMAN REGULAR PER UNIT 5 UNITS in SYRINGE 4.95 ML IV ONE (16:00)
--- NOTE | 2019-09-21 20:43 | Hospitalist Progress Note ---
Date of Service September 21, 2019 Assessment & Plan (1) New onset atrial fibrillation: 64-year-old male with history of coronary disease, status post stent placement, ischemic cardiomyopathy, status post AICD placement, Diabetes type 2, hypertension, obstructive sleep apnea, CKD stage II presenting with shortness of breath and leg swelling #1 new onset atrial fibrillation EKG: afib, rate 64, left anterior fascicular block, ventricular paced. In ER HR 50's-60's CHADSVASC: 4 -Remains heart rate controlled -Metoprolol heart rate 25 mg twice daily changed to metoprolol succinate 50 mg p.o. daily -Transitioned from heparin to Eliquis -Discussed with cardiology service Dr. carson Possible cardioversion once patient is adequately anticoagulated - stable #2 acute on chronic systolic congestive heart failure exacerbation, history of AICD placement CXR: Cardiomegaly with pulmonary vascular congestion and interstitial coarsening suggestive of pulmonary edema. Bibasilar consolidative opacities suggest atelectasis or pneumonitis. Probable trace pleural effusions. Repeat echo noted -Was given Lasix IV 60 mg twice a day -Also on Nitropaste -Patient diuresed -However creatinine increased now to 2.2, baseline is 1.2 -Records being obtained from [facility] to establish patient's renal function for the past 3 years Welt Cutter consulted - on Lasix 20mg IV BID monitor diuresis (3) Chest pain: Primary service notes: Episode CP last night and this morning. Had 2 spray s of nitroglycerin in route by EMS with resolution of chest pain Troponin: Remained 0.02 -Acute coronary syndrome unlikely per cardiology service -Continue aspirin, statin, metoprolol (4) CAD (coronary artery disease): S/P Stent -CP work up as above H/O LEFT APICAL ANEURYSM Per admitting service notes: Previously on Coumadin. Coumadin was discontinued while in intermediate -Heparin transitioned to Eliquis (5) acute kidney injury on CKD (chronic kidney disease) stage IV Present records indicate CKD. Unsure of CKD stage and baseline labs BUN: 38, Cr: 1.99, GFR: 34.5 --Scanned outpatient records reviewed, BMP from 2014 showing creatinine of 1.2, GFR 61 --Welt Cutter consulted for Lasix recommendations --- crea 2.2 monitor while on Lasix IV (6) HTN (hypertension): Stable -Continue amlodipine, metoprolol -Monitor BP (7) 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, type II: -A1c in a.m. -Hold glimepiride, metformin -Novolog sliding scale per protocol (8) RYAN (obstructive sleep apnea): -CPAP HS DVT Prophylaxis -On Eliquis Full Code as per discussion with pt Follows with Dr Rodriguez at [facility] for routine care Disposition pending anticipate discharge to [facility] when medically stable Admission and Anticipated Discharge Date Admission Date: September 18, 2019 Subjective ff up for CHF, a fib seen resting in bed, watching TV, in good spirits states he continues to feel improved breathing gradually improving denies chest pain no bleeding no other symptoms Review of Systems Review of Systems: All systems reviewed & are unremarkable except as noted in HPI & below Physical Exam Physical Exam: General- oriented x 3, not in distress, speaks in sentences with no effort or accessory muscle use Eyes- anicteric Neck- no JVD Lungs-mild rales at the bases- improved no wheezing Heart- normal rate,irregularly irregular rhythm; no murmurs Abdomen- normal bowel sounds, nondistended, soft, nontender Extremities- mild lower leg edema, no calf tenderness Neuro- alert, oriented x 3; no gross focal neurologic deficits Skin- warm & dry Results & Data ([facility]) Vital Signs (Past 12 Hours) Vital Signs Temp Pulse Pulse Resp BP Pulse Ox 09/21/19 19:56 36.5 C 47 L 21 174/96 H 98 09/21/19 15:42 65 09/21/19 15:38 36.9 C 59 L 21 148/94 H 90 09/21/19 11:49 36.5 C 76 20 129/70 95 Laboratory Results Laboratory Results - last 24 hr 09/21/19 09/21/19 09/21/19 07:17 07:17 07:37 WBC 6.17 RBC 3.72 L Hgb 11.4 L Hct 34.8 L MCV 93.5 MCH 30.6 MCHC 32.8 RDW Std Deviation 52.4 H RDW Coeff of Nini 15.5 H Plt Count 183 MPV 9.7 Immature Gran % (Auto) 0.2 Neut % (Auto) 73.3 Lymph % (Auto) 16.0 [place] % (Auto) 10.0 Eos % (Auto) 0.2 Baso % (Auto) 0.3 Immature Gran # (Auto) 0.01 Neut # (Auto) 4.52 Lymph # (Auto) 0.99 L [place] # (Auto) 0.62 H Eos # (Auto) 0.01 Baso # (Auto) 0.02 Sodium 142 Potassium 3.9 Chloride 109 H Carbon Dioxide 25 Anion Gap 7.0 BUN 47 H Creatinine 2.20 H Est Cr Clr Drug Dosing 41.2 Est GFR ( Amer) 35.4 Est GFR (Non-Af Amer) 30.5 BUN/Creatinine Ratio 21.5 H Glucose 155 H POC Glucose 165 H Calcium 8.9 Iron 62 Transferrin 234 Transferrin % Sat 19 L Beta-Hydroxybutyric Acd 09/21/19 09/21/19 09/21/19 11:26 11:27 14:11 WBC RBC Hgb Hct MCV MCH MCHC RDW Std Deviation RDW Coeff of Nini Plt Count MPV Immature Gran % (Auto) Neut % (Auto) Lymph % (Auto) [place] % (Auto) Eos % (Auto) Baso % (Auto) Immature Gran # (Auto) Neut # (Auto) Lymph # (Auto) [place] # (Auto) Eos # (Auto) Baso # (Auto) Sodium Potassium Chloride Carbon Dioxide Anion Gap BUN Creatinine Est Cr Clr Drug Dosing Est GFR ( Amer) Est GFR (Non-Af Amer) BUN/Creatinine Ratio Glucose POC Glucose 343 H* 335 H* 335 H* Calcium Iron Transferrin Transferrin % Sat Beta-Hydroxybutyric Acd 09/21/19 09/21/19 09/21/19 14:12 14:38 17:04 WBC RBC Hgb Hct MCV MCH MCHC RDW Std Deviation RDW Coeff of Nini Plt Count MPV Immature Gran % (Auto) Neut % (Auto) Lymph % (Auto) [place] % (Auto) Eos % (Auto) Baso % (Auto) Immature Gran # (Auto) Neut # (Auto) Lymph # (Auto) [place] # (Auto) Eos # (Auto) Baso # (Auto) Sodium Potassium Chloride Carbon Dioxide Anion Gap BUN Creatinine Est Cr Clr Drug Dosing Est GFR ( Amer) Est GFR (Non-Af Amer) BUN/Creatinine Ratio Glucose 333 H* POC Glucose 346 H* 187 H Calcium Iron Transferrin Transferrin % Sat Beta-Hydroxybutyric Acd 1.74 09/21/19 20:30 WBC RBC Hgb Hct MCV MCH MCHC RDW Std Deviation RDW Coeff of Nini Plt Count MPV Immature Gran % (Auto) Neut % (Auto) Lymph % (Auto) [place] % (Auto) Eos % (Auto) Baso % (Auto) Immature Gran # (Auto) Neut # (Auto) Lymph # (Auto) [place] # (Auto) Eos # (Auto) Baso # (Auto) Sodium Potassium Chloride Carbon Dioxide Anion Gap BUN Creatinine Est Cr Clr Drug Dosing Est GFR ( Amer) Est GFR (Non-Af Amer) BUN/Creatinine Ratio Glucose POC Glucose 248 H Calcium Iron Transferrin Transferrin % Sat Beta-Hydroxybutyric Acd
[2019-09-22] MEDS ORDERED: INSULIN ASPART 100 UNITS/ML 3 ML PEN SC SCH (02:00)
[2019-09-22 07:03] LABS: Basophils # (auto) 0.01 K/uL (0-0.2); Basophils % (auto) 0.2 %; Eosinophils # (auto) 0.01 K/uL (0-0.5); Eosinophils % (auto) 0.2 %; Hematocrit (blood only) 31.2 % (42-52); Hemoglobin 10.3 g/dL (14.0-18.0); Immature Granulocytes # (auto) 0.01 K/uL (0.00-0.02); Immature Granulocytes % (auto) 0.2 %; Lymphocytes # (auto) 0.76 K/uL (1.2-3.4); Lymphocytes % (auto) 12.1 %; Mean Corpuscular Hemoglobin 30.9 pg (25-34); Mean Corpuscular Volume 93.7 fL (80-100); Mean Platelet Volume 9.3 fL (7.4-10.4); Monocytes % (auto) 12.8 %; Neutrophils # (auto) 4.68 K/uL (1.4-6.5); Neutrophils % (auto) 74.5 %; Nucleated RBC # (auto) 0.09 K/uL (0-0); Nucleated RBC % (auto) 1.5 %; Platelet Count 159 K/uL (130-400); RDW Coefficient of Variation 15.4 % (11.5-14.5); RDW Standard Deviation 52.7 fL (36.4-46.3); Red Blood Count 3.33 M/uL (4.7-6.1); White Blood Count 6.27 K/uL (4.8-10.8)
[2019-09-22 07:40] LABS: BUN Creatinine Ratio 19.8 (10-20); Calcium 8.4 mg/dl (8.5-10.1); Creatinine Clr Calc Pharmacy 41.2 ml/min; Est GFR (Non-African American) 30.2; Potassium 3.7 mmol/L (3.5-5.1)
[2019-09-22] MEDS: FUROSEMIDE 20 MG in SYRINGE 0 ML IV SCH ×2 (08:05→17:04)
[2019-09-22] MEDS: APIXABAN 5 MG TABLET PO SCH ×2 (08:05→20:24)
[2019-09-22] MEDS: ATORVASTATIN 40 MG TAB PO SCH (08:06)
[2019-09-22] MEDS: INSULIN ASPART 100 UNITS/ML 3 ML PEN SC SCH ×4 (08:06→20:25)
[2019-09-22] MEDS: MAGNESIUM OXIDE 400 MG TAB PO SCH ×2 (08:06→20:25)
[2019-09-22] MEDS: AMLODIPINE BESYLATE 5 MG TAB PO SCH (08:06)
[2019-09-22] MEDS: METOPROLOL SUCC 50MG EXT REL TAB PO SCH (08:06)
[2019-09-22] MEDS: ASPIRIN 81 MG ECTAB PO SCH (08:06)
[2019-09-22] MEDS ORDERED: INSULIN GLARGINE SOLOSTAR 100 UNITS/ML 3 ML PEN SC SCH (09:00)
--- NOTE | 2019-09-22 14:32 | Pharmacy Report ---
Pharmacy Glycemic Short Note 2 - Date of Service September 22, 2019 - Glycemic Short BSG Results (Last 24 hours): 09/21/19 09/21/19 09/21/19 14:38 17:04 20:30 Glucose 333 H* POC Glucose 187 H 248 H 09/22/19 09/22/19 09/22/19 01:35 06:45 07:28 Glucose 125 H POC Glucose 144 H 121 H 09/22/19 11:30 Glucose POC Glucose 212 H OUTPATIENT ANTIDIABETIC REGIMEN: * Metformin 1 gm BID * Glimepiride 6 mg daily * A1c 8.4% on 09/19/19 ASSESSMENT: * Patient is currently receiving an average of 50 units of insulin per day * 15 units of basal insulin * 36 units of prandial/correctional insulin * BSGs ranging 121-248 over the past 24hrs * Risk factors for insulin resistance are constant over the past 24hrs * Anticipating insulin regimen will need increased for the next 24hrs d/t : * Post-prandial BSGs continue to be slightly elevated/BSGs rise throughout the day therefore Tighten CR PLAN FOR INPATIENT GLYCEMIC CONTROL: * Continue to hold outpatient oral diabetes medications * Basal insulin - no change * Lantus 15 units SQ qAM * Bolus insulin - tighten CR * NovoLog per scale ACHS or Q6hrs while NPO * Goal Range: Low 110 mg/dL - High 150 mg/dL * Correction Factor: 25 mg/dL/unit * Nutritional / Prandial insulin per carb ratio of 1 unit per 7 grams CHO consumed
--- NOTE | 2019-09-22 17:55 | Hospitalist Progress Note ---
Date of Service September 22, 2019 Assessment & Plan (1) Ischemic cardiomyopathy: (1) New onset atrial fibrillation: 64-year-old male with history of coronary disease, status post stent placement, ischemic cardiomyopathy, status post AICD placement, Diabetes type 2, hypertension, obstructive sleep apnea, CKD stage II presenting with shortness of breath and leg swelling #1 new onset atrial fibrillation EKG: afib, rate 64, left anterior fascicular block, ventricular paced. In ER HR 50's-60's CHADSVASC: 4 -Remains heart rate controlled -Metoprolol heart rate 25 mg twice daily changed to metoprolol succinate 50 mg p.o. daily -Transitioned from heparin to Eliquis -Discussed with cardiology service Dr. carson Possible cardioversion once patient is adequately anticoagulated - stable #2 acute on chronic systolic congestive heart failure exacerbation, history of AICD placement CXR: Cardiomegaly with pulmonary vascular congestion and interstitial coarsening suggestive of pulmonary edema. Bibasilar consolidative opacities suggest atelectasis or pneumonitis. Probable trace pleural effusions. Repeat echo noted -Was given Lasix IV 60 mg twice a day -Also on Nitropaste -Patient diuresed -However creatinine increased now to 2.2, baseline is 1.2 -Records being obtained from [facility] to establish patient's renal function for the past 3 years Director Of [employer] consulted - on Lasix 20mg IV BID crea stable monitor (3) Chest pain: Primary service notes: Episode CP last night and this morning. Had 2 sprays of nitroglycerin in route by EMS with resolution of chest pain Troponin: Remained 0.02 -Acute coronary syndrome unlikely per cardiology service -Continue aspirin, statin, metoprolol (4) CAD (coronary artery disease): S/P Stent -CP work up as above H/O LEFT APICAL ANEURYSM Per admitting service notes: Previously on Coumadin. Coumadin was discontinued while in residential -Heparin transitioned to Eliquis tolerating Eliquis well (5) acute kidney injury on CKD (chronic kidney disease) stage IV Present records indicate CKD. Unsure of CKD stage and baseline labs BUN: 38, Cr: 1.99, GFR: 34.5 --Scanned outpatient records reviewed, BMP from 2014 showing creatinine of 1.2, GFR 61 --Director Of [employer] consulted for Lasix recommendations --- stable at crea 2.2 monitor while on Lasix IV (6) HTN (hypertension): Stable -Continue amlodipine, metoprolol -Monitor BP (7) 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, type II: -A1c in a.m. -Hold glimepiride, metformin -Novolog sliding scale per protocol (8) RYAN (obstructive sleep apnea): -CPAP HS DVT Prophylaxis -On Eliquis Full Code as per discussion with pt Follows with Dr Rodriguez at [facility] for routine care Disposition pending anticipate discharge to [facility] when medically stable Admission and Anticipated Discharge Date Admission Date: September 18, 2019 Subjective ff up for CHF, etc seen resting in bed, comfortable,watching TV states breathing continues to improve no chest pain no problems with urination no other symptoms Review of Systems Review of Systems: All systems reviewed & are unremarkable except as noted in HPI & below Physical Exam Physical Exam: General- oriented x 3, not in distress, speaks in sentences with no effort or accessory muscle use Eyes- anicteric Neck- no JVD Lungs-mild BL rales no wheezes Heart- normal rate, regular rhythm; no murmurs Abdomen- normal bowel sounds, nondistended, soft, nontender Extremities- grade 1 lower leg edema, no calf tenderness Neuro- alert, oriented x 3; no gross focal neurologic deficits Skin- warm & dry Results & Data ([facility]) Vital Signs (Past 12 Hours) Vital Signs Temp Pulse Pulse Resp BP BP Pulse Ox 09/22/19 15:30 36.5 C 54 L 24 157/71 H 98 09/22/19 12:09 36.4 C L 62 20 156/89 H 98 09/22/19 10:10 56 L 09/22/19 07:27 36.9 C 59 L 23 146/86 H 93 Laboratory Results Laboratory Results - last 24 hr 09/21/19 09/22/19 09/22/19 20:30 01:35 06:45 WBC 6.27 RBC 3.33 L Hgb 10.3 L Hct 31.2 L MCV 93.7 MCH 30.9 MCHC 33.0 RDW Std Deviation 52.7 H RDW Coeff of Nini 15.4 H Plt Count 159 MPV 9.3 Immature Gran % (Auto) 0.2 Neut % (Auto) 74.5 Lymph % (Auto) 12.1 [place] % (Auto) 12.8 Eos % (Auto) 0.2 Baso % (Auto) 0.2 Immature Gran # (Auto) 0.01 Neut # (Auto) 4.68 Lymph # (Auto) 0.76 L [place] # (Auto) 0.80 H Eos # (Auto) 0.01 Baso # (Auto) 0.01 Absolute Nucleated RBC 0.09 H Nucleated RBC % (auto) 1.5 Sodium Potassium Chloride Carbon Dioxide Anion Gap BUN Creatinine Est Cr Clr Drug Dosing Est GFR ( Amer) Est GFR (Non-Af Amer) BUN/Creatinine Ratio Glucose POC Glucose 248 H 144 H Calcium 09/22/19 09/22/19 09/22/19 06:45 07:28 11:30 WBC RBC Hgb Hct MCV MCH MCHC RDW Std Deviation RDW Coeff of Nini Plt Count MPV Immature Gran % (Auto) Neut % (Auto) Lymph % (Auto) [place] % (Auto) Eos % (Auto) Baso % (Auto) Immature Gran # (Auto) Neut # (Auto) Lymph # (Auto) [place] # (Auto) Eos # (Auto) Baso # (Auto) Absolute Nucleated RBC Nucleated RBC % (auto) Sodium 142 Potassium 3.7 Chloride 111 H Carbon Dioxide 26 Anion Gap 5.0 BUN 44 H Creatinine 2.22 H Est Cr Clr Drug Dosing 41.2 Est GFR ( Amer) 35.0 Est GFR (Non-Af Amer) 30.2 BUN/Creatinine Ratio 19.8 Glucose 125 H POC Glucose 121 H 212 H Calcium 8.4 L 09/22/19 16:21 WBC RBC Hgb Hct MCV MCH MCHC RDW Std Deviation RDW Coeff of Nini Plt Count MPV Immature Gran % (Auto) Neut % (Auto) Lymph % (Auto) [place] % (Auto) Eos % (Auto) Baso % (Auto) Immature Gran # (Auto) Neut # (Auto) Lymph # (Auto) [place] # (Auto) Eos # (Auto) Baso # (Auto) Absolute Nucleated RBC Nucleated RBC % (auto) Sodium Potassium Chloride Carbon Dioxide Anion Gap BUN Creatinine Est Cr Clr Drug Dosing Est GFR ( Amer) Est GFR (Non-Af Amer) BUN/Creatinine Ratio Glucose POC Glucose 178 H Calcium
[2019-09-23 06:49] LABS: Basophils # (auto) 0.02 K/uL (0-0.2); Basophils % (auto) 0.3 %; Eosinophils # (auto) 0.01 K/uL (0-0.5); Eosinophils % (auto) 0.1 %; Hematocrit (blood only) 34.2 % (42-52); Hemoglobin 11.3 g/dL (14.0-18.0); Immature Granulocytes # (auto) 0.01 K/uL (0.00-0.02); Immature Granulocytes % (auto) 0.1 %; Lymphocytes # (auto) 0.97 K/uL (1.2-3.4); Lymphocytes % (auto) 13.6 %; Mean Corpuscular Hemoglobin 31.1 pg (25-34); Mean Corpuscular Volume 94.2 fL (80-100); Mean Platelet Volume 9.4 fL (7.4-10.4); Monocytes # (auto) 0.85 K/uL (0.11-0.59); Monocytes % (auto) 11.9 %; Neutrophils # (auto) 5.28 K/uL (1.4-6.5); Platelet Count 198 K/uL (130-400); RDW Coefficient of Variation 15.5 % (11.5-14.5); RDW Standard Deviation 52.3 fL (36.4-46.3); Red Blood Count 3.63 M/uL (4.7-6.1); White Blood Count 7.14 K/uL (4.8-10.8)
[2019-09-23 07:24] LABS: BUN Creatinine Ratio 20.8 (10-20); Calcium 8.7 mg/dl (8.5-10.1); Creatinine Clr Calc Pharmacy 43.7 ml/min; Est GFR (African American) 37.6; Est GFR (Non-African American) 32.5; Potassium 3.8 mmol/L (3.5-5.1)
[2019-09-23] MEDS: MAGNESIUM OXIDE 400 MG TAB PO SCH ×2 (08:45→19:43)
[2019-09-23] MEDS: APIXABAN 5 MG TABLET PO SCH ×2 (08:45→19:43)
[2019-09-23] MEDS: ASPIRIN 81 MG ECTAB PO SCH (08:46)
[2019-09-23] MEDS: INSULIN ASPART 100 UNITS/ML 3 ML PEN SC SCH ×4 (08:46→20:46)
[2019-09-23] MEDS: AMLODIPINE BESYLATE 5 MG TAB PO SCH (08:46)
[2019-09-23] MEDS: METOPROLOL SUCC 50MG EXT REL TAB PO SCH (08:46)
[2019-09-23] MEDS: ATORVASTATIN 40 MG TAB PO SCH (08:46)
[2019-09-23] MEDS: FUROSEMIDE 20 MG in SYRINGE 0 ML IV SCH (08:46)
[2019-09-23] MEDS: INSULIN GLARGINE SOLOSTAR 100 UNITS/ML 3 ML PEN SC SCH (08:48)
[2019-09-23] MEDS ORDERED: FUROSEMIDE 20 MG in SYRINGE 0 ML IV ONE (09:50)
--- NOTE | 2019-09-23 09:55 | Hospitalist Progress Note ---
Date of Service September 23, 2019 Assessment & Plan (1) Ischemic cardiomyopathy: (1) New onset atrial fibrillation: 64-year-old male with history of coronary disease, status post stent placement, ischemic cardiomyopathy, status post AICD placement, Diabetes type 2, hypertension, obstructive sleep apnea, CKD stage II presenting with shortness of breath and leg swelling #1 new onset atrial fibrillation EKG: afib, rate 64, left anterior fascicular block, ventricular paced. In ER HR 50's-60's CHADSVASC: 4 -Remains heart rate controlled -Metoprolol heart rate 25 mg twice daily changed to metoprolol succinate 50 mg p.o. daily -Transitioned from heparin to Eliquis -Discussed with cardiology service Dr. carson Possible cardioversion once patient is adequately anticoagulated - stable #2 acute on chronic systolic congestive heart failure exacerbation, history of AICD placement CXR: Cardiomegaly with pulmonary vascular congestion and interstitial coarsening suggestive of pulmonary edema. Bibasilar consolidative opacities suggest atelectasis or pneumonitis. Probable trace pleural effusions. Repeat echo noted -Was given Lasix IV 60 mg twice a day -Also on Nitropaste -Patient diuresed -However creatinine increased now to 2.2, baseline is 1.2 -Records being obtained from [facility] to establish patient's renal function for the past 3 years Matcher Operator consulted -Increase Lasix to 40 mg IV twice daily Monitor renal function Check abdominal ultrasound for ascites (3) Chest pain: Primary service notes: Episode CP last night and this morning. Had 2 sprays of nitroglycerin in route by EMS with resolution of chest pain Troponin: Remained 0.02 -Acute coronary syndrome unlikely per cardiology service -Continue aspirin, statin, metoprolol (4) CAD (coronary artery disease): S/P Stent -CP work up as above H/O LEFT APICAL ANEURYSM Per admitting service notes: Previously on Coumadin. Coumadin [facility] -Heparin transitioned to Eliquis tolerating Eliquis well (5) acute kidney injury on CKD (chronic kidney disease) stage IV Present records indicate CKD. Unsure of CKD stage and baseline labs BUN: 38, Cr: 1.99, GFR: 34.5 --Scanned outpatient records reviewed, BMP from 2014 showing creatinine of 1.2, GFR 61 --Matcher Operator consulted for Lasix recommendations --- stable at crea 2.09 monitor while on Lasix IV (6) HTN (hypertension): Stable -Continue amlodipine, metoprolol -Monitor BP (7) 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, type II: -A1c in a.m. -Hold glimepiride, metformin -Novolog sliding scale per protocol (8) RYAN (obstructive sleep apnea): -CPAP HS DVT Prophylaxis -On Eliquis Full Code as per discussion with pt Follows with Dr Rodriguez at [facility] for routine care Disposition pending anticipate discharge to [facility] when medically stable Admission and Anticipated Discharge Date Admission Date: September 18, 2019 Subjective Follow-up for CHF, atrial fibrillation, etc. Seen resting in bed, comfortable, not in distress States he continues to feel improved Less dyspnea on exertion Denies chest pain No problems with urination No other symptoms Review of Systems Review of Systems: All systems reviewed & are unremarkable except as noted in HPI & below Physical Exam Physical Exam: General- oriented x 3, not in distress, speaks in sentences with no effort or accessory muscle use Eyes- anicteric Neck- no JVD Lungs-mild crackles at the bases, no wheezing Heart- normal rate, regular rhythm; no murmurs Abdomen- normal bowel sounds, mild distention, soft, nontender Extremities-grade 1 lower leg edema, no calf tenderness Neuro- alert, oriented x 3; no gross focal neurologic deficits Skin- warm & dry Results & Data ([facility]) Vital Signs (Past 12 Hours) Vital Signs Temp Pulse Pulse Resp BP Pulse Ox 09/23/19 08:43 73 09/23/19 07:57 36.6 C 47 L 18 142/70 H 92 09/23/19 03:39 37.2 C 78 18 157/88 H 91 09/23/19 03:16 48 L 20 94 09/23/19 00:58 158/81 H 09/23/19 00:57 58 L 18 93 09/22/19 23:26 54 L 16 95 09/22/19 23:22 37.0 C 56 L 18 180/104 H 90 Laboratory Results Laboratory Results - last 24 hr 09/23/19 09/23/19 09/23/19 06:35 06:35 07:40 WBC 7.14 RBC 3.63 L Hgb 11.3 L Hct 34.2 L MCV 94.2 MCH 31.1 MCHC 33.0 RDW Std Deviation 52.3 H RDW Coeff of Nini 15.5 H Plt Count 198 MPV 9.4 Immature Gran % (Auto) 0.1 Neut % (Auto) 74.0 Lymph % (Auto) 13.6 [place] % (Auto) 11.9 Eos % (Auto) 0.1 Baso % (Auto) 0.3 Immature Gran # (Auto) 0.01 Neut # (Auto) 5.28 Lymph # (Auto) 0.97 L [place] # (Auto) 0.85 H Eos # (Auto) 0.01 Baso # (Auto) 0.02 Sodium 143 Potassium 3.8 Chloride 112 H Carbon Dioxide 25 Anion Gap 7.0 BUN 43 H Creatinine 2.09 H Est Cr Clr Drug Dosing 43.7 Est GFR ( Amer) 37.6 Est GFR (Non-Af Amer) 32.5 BUN/Creatinine Ratio 20.8 H Glucose 127 H POC Glucose 133 H Calcium 8.7 09/23/19 09/23/19 09/23/19 11:05 16:12 20:02 WBC RBC Hgb Hct MCV MCH MCHC RDW Std Deviation RDW Coeff of Nini Plt Count MPV Immature Gran % (Auto) Neut % (Auto) Lymph % (Auto) [place] % (Auto) Eos % (Auto) Baso % (Auto) Immature Gran # (Auto) Neut # (Auto) Lymph # (Auto) [place] # (Auto) Eos # (Auto) Baso # (Auto) Sodium Potassium Chloride Carbon Dioxide Anion Gap BUN Creatinine Est Cr Clr Drug Dosing Est GFR ( Amer) Est GFR (Non-Af Amer) BUN/Creatinine Ratio Glucose POC Glucose 232 H 210 H 156 H Calcium
--- NOTE | 2019-09-23 11:24 | Cardiology Progress Note ---
Date of Service September 23, 2019 Assessment & Plan (1) Atrial fibrillation: No symptoms. Adequate rate control. On Eliquis. I think would be reasonable discontinue his aspirin in this setting. (2) ICD (implantable cardioverter-defibrillator) in place: normally functioning device. No therapies. At some point we could consider an upgrade to a biventricular device if he continues to have significant RV pacing. (3) Ischemic cardiomyopathy: Longstanding. Clearly decompensated at this point. His outpatient medical regimen consists of an IVA-inhibitor and metoprolol succinate (4) CAD (coronary artery disease): He is known to have occlusive coronary disease. Do not believe his current symptoms are likely related to an acute coronary syndrome. Biomarkers are quite low despite extended period of symptom. His chest discomfort is more likely related to pulmonary congestion. He can be continued on his beta- alma. Aspirin discontinued in favor of Eliquis. Currently using nitroglycerin for symptom improvement. (5) CHF (congestive heart failure): Doing well this diuresis. Renal function stable. Will continue on his current dose of Lasix and monitor his response. Some point will need to switch him to an oral dose and see if he is able to maintain good diuresis. Admission and Anticipated Discharge Date Admission Date: September 18, 2019 Subjective Patient thinks his breathing somewhat easier. He feels that he is able to take deeper breaths. He is less dyspneic. He needs his CPAP LEs. He has been ambulatory around the room without dizziness or sense of palpitation. Imp rovement and scrotal and lower extremity edema. Review of Systems Review of Systems: Per HPI Physical Exam Physical Exam: The patient is alert and oriented. Mood and affect appeared normal. He answered all questions appropriately. HEENT: Pupils are equal and reactive to light and accommodation. Extraocular movements are intact. The sclerae are anicteric. Neuro: Cranial nerves intact Neck: Patient's neck is supple. He has palpable carotid pulses bilaterally without bruits on auscultation. The thyroid is not enlarged. Lungs: Rales in the lower lung kebede. No expiratory wheezing. Normal respiratory effort.. Cardiac: Heart demonstrates an irregular rate and rhythm. Normal S1 and S2. Holosystolic murmur variable intensity.. Pulses: The patient has palpable radial pulses bilaterally that are equal in intensity Extremities: There was no evidence of hypoperfusion. There is no cyanosis or clubbing. Wearing compression stockings. Notable anasarca with leg, scrotal, abdominal in even facial edema.. Skin: I did not appreciate any rashes on examination today. Results & Data ([facility]) Vital Signs (Past 12 Hours) Vital Signs Temp Pulse Pulse Resp BP Pulse Ox 09/23/19 08:43 73 09/23/19 07:57 36.6 C 47 L 18 142/70 H 92 09/23/19 03:39 37.2 C 78 18 157/88 H 91 09/23/19 03:16 48 L 20 94 09/23/19 00:58 158/81 H 09/23/19 00:57 58 L 18 93 09/22/19 23:26 54 L 16 95 Laboratory Results Abnormal Lab Results 09/22/19 09/22/19 09/22/19 11:30 16:21 20:19 WBC RBC Hgb Hct MCV MCH MCHC RDW Std Deviation RDW Coeff of Nini Plt Count MPV Immature Gran % (Auto) Neut % (Auto) Lymph % (Auto) [place] % (Auto) Eos % (Auto) Baso % (Auto) Immature Gran # (Auto) Neut # (Auto) Lymph # (Auto) [place] # (Auto) Eos # (Auto) Baso # (Auto) Sodium Potassium Chloride Carbon Dioxide Anion Gap BUN Creatinine Est Cr Clr Drug Dosing Est GFR ( Amer) Est GFR (Non-Af Amer) BUN/Creatinine Ratio Glucose POC Glucose 212 H 178 H 267 H Calcium 09/23/19 09/23/19 09/23/19 06:35 06:35 07:40 WBC 7.14 RBC 3.63 L Hgb 11.3 L Hct 34.2 L MCV 94.2 MCH 31.1 MCHC 33.0 RDW Std Deviation 52.3 H RDW Coeff of Nini 15.5 H Plt Count 198 MPV 9.4 Immature Gran % (Auto) 0.1 Neut % (Auto) 74.0 Lymph % (Auto) 13.6 [place] % (Auto) 11.9 Eos % (Auto) 0.1 Baso % (Auto) 0.3 Immature Gran # (Auto) 0.01 Neut # (Auto) 5.28 Lymph # (Auto) 0.97 L [place] # (Auto) 0.85 H Eos # (Auto) 0.01 Baso # (Auto) 0.02 Sodium 143 Potassium 3.8 Chloride 112 H Carbon Dioxide 25 Anion Gap 7.0 BUN 43 H Creatinine 2.09 H Est Cr Clr Drug Dosing 43.7 Est GFR ( Amer) 37.6 Est GFR (Non-Af Amer) 32.5 BUN/Creatinine Ratio 20.8 H Glucose 127 H POC Glucose 133 H Calcium 8.7 09/23/19 11:05 WBC RBC Hgb Hct MCV MCH MCHC RDW Std Deviation RDW Coeff of Nini Plt Count MPV Immature Gran % (Auto) Neut % (Auto) Lymph % (Auto) [place] % (Auto) Eos % (Auto) Baso % (Auto) Immature Gran # (Auto) Neut # (Auto) Lymph # (Auto) [place] # (Auto) Eos # (Auto) Baso # (Auto) Sodium Potassium Chloride Carbon Dioxide Anion Gap BUN Creatinine Est Cr Clr Drug Dosing Est GFR ( Amer) Est GFR (Non-Af Amer) BUN/Creatinine Ratio Glucose POC Glucose 232 H Calcium PG Care Time/CCT Total # of Minutes Spent Total Time Spent with Patient: Total time spent is greater than 50% in coordination of care (as documented) at patient's floor/unit and/or counseling patient: Coding Level of Care Code 40451 Subseq Hosp Care Lvl 3 Diagnoses Atrial fibrillation I48.91 ICD (implantable cardioverter-defibrillator) in place Z95.810 Ischemic cardiomyopathy I25.5 CAD (coronary artery disease) I25.10 CHF (congestive heart failure) I50.9 Heart failure chronicity: acute Heart failure type: unspecified (1) CHF (congestive heart failure) Heart failure chronicity: acute Heart failure type: unspecified Qualified Code(s): I50.9 - Heart failure, unspecified
--- NOTE | 2019-09-23 12:37 | Pharmacy Report ---
Pharmacy Glycemic Short Note 2 - Date of Service September 23, 2019 - Glycemic Short BSG Results (Last 24 hours): 09/22/19 09/22/19 09/23/19 16:21 20:19 06:35 Glucose 127 H POC Glucose 178 H 267 H 09/23/19 09/23/19 07:40 11:05 Glucose POC Glucose 133 H 232 H OUTPATIENT ANTIDIABETIC REGIMEN: * Metformin 1 gm BID * Glimepiride 6 mg daily * A1c 8.4% on 09/19/19 ASSESSMENT: 09/22 * Fasting BSG at goal with 15 units basal insulin on board and after receiving 5 units correctional insulin last evening * Post prandial BSGs have been elevated - likely needs more prandial insulin * Over the last 24 hrs, 55 units of insulin administered * Will up doses of both basal and prandial insulin today, based upon anticipated total daily requirements 50+ units while tolerating a diet PLAN FOR INPATIENT GLYCEMIC CONTROL: * Continue to hold outpatient oral diabetes medications * Basal insulin - increase * Lantus 20 units SQ qAM + 5 units Q PM * Bolus insulin - tighten CR * NovoLog per scale ACHS or Q6hrs while NPO * Goal Range: Low 110 mg/dL - High 140 mg/dL * Correction Factor: 25 mg/dL/unit * Nutritional / Prandial insulin per carb ratio of 1 unit per 6 grams CHO consumed
--- NOTE | 2019-09-23 12:47 | Nephrology Progress Note ---
Date of Service September 23, 2019 Assessment & Plan (1) Fluid overload: based on imaging, HF hx, exam, pt ROS -- certainly acute on chronic HF; could also have component of nephrotic syndrome. Patient has ascites. -increase Lasix to 40 mg IV twice daily. -recommend daily STANDING wts and so ordered -cont FR of 1.5 L daily and Na restrictions -consider abdominal imaging (2) CKD (chronic kidney disease): unknown baseline creatinine; was 0.8 baseline in 2014 but at that time already w/ 1-2 gm protienuria. chemistries acceptable; fluid OL as above. -f/u outside records requested by facility -needs to continue OP follow up w/ nephro at his facility -daily bmp, hgb -ordered t stn > may benefit from IV iron -cont to avoid nephrotoxins (3) Proteinuria: present and > 1 gm daily since at least 2013; could easily be nephrotic range now and may have component of nephrotic syndrome here -no norma/arb currently but may consider introducing -ordered to check prot/creat -needs OP follow up w/ [facility] reading coach; need to know what proteinuria w/u if any has been done; could be done as OP if clinically improving Admission and Anticipated Discharge Date Admission Date: September 18, 2019 Subjective Patient still reports exertional dyspnea. He is on oxygen by nasal cannula. He does not use oxygen chronically. He has leg swelling which is subsiding. He has abdominal swelling. Review of Systems Review of Systems: All systems reviewed & are unremarkable except as noted in HPI & below Physical Exam Physical Exam: General exam: Appears comfortable, no acute distress HEENT: Pupils are equal and reactive to light Neck: No JVD, neck is supple trachea is midline Respiratory system: Reduced breath sounds bilaterally. Gastrointestinal: Abdomen is soft, distended, tender, bowel sounds are present CVS: Regular rate and rhythm. No murmurs, rubs or gallops Musculoskeletal: No joint or muscle tenderness Extremities: Non tender, 1+ edema, peripheral pulses are present Neuro: Oriented, no tremors, no focal neurological deficits Skin: No rashes Results & Data ([facility]) Vital Signs (Past 12 Hours) Vital Signs Temp Pulse Pulse Resp BP Pulse Ox 09/23/19 11:46 36.8 C 70 18 147/76 H 94 09/23/19 08:43 73 09/23/19 07:57 36.6 C 47 L 18 142/70 H 92 09/23/19 03:39 37.2 C 78 18 157/88 H 91 09/23/19 03:16 48 L 20 94 09/23/19 00:58 158/81 H 09/23/19 00:57 58 L 18 93 Laboratory Results 09/23/19 06:35 09/23/19 06:35 WBC 7.14 RBC 3.63 L MCV 94.2 MCH 31.1 MCHC 33.0 RDW Std Deviation 52.3 H RDW Coeff of Nini 15.5 H Plt Count 198 MPV 9.4
--- NOTE | 2019-09-23 14:31 | Ultrasound Report ---
US abdomen ltd ascites CLINICAL HISTORY: r/o ascites COMPARISON STUDY: Abdomen and pelvis CT 08/24/2013. FINDINGS: Transabdominal scanning of the pelvis was performed with manufacturing sales representative images submitted. N o ascites identified. Small right pleural effusion. IMPRESSION: 1. No ascites. 2. Small right pleural effusion. ACT 112: Negative or not required by law. Electronically signed by: Sky Billings M.D. 09/23/2019 2:30 PM
[2019-09-23] MEDS: FUROSEMIDE 40 MG in SYRINGE 0 ML IV SCH (16:42)
[2019-09-23] MEDS ORDERED: INSULIN GLARGINE SOLOSTAR 100 UNITS/ML 3 ML PEN SC SCH ×2 (21:00)
[2019-09-24 06:22] LABS: Basophils # (auto) 0.02 K/uL (0-0.2); Basophils % (auto) 0.3 %; Eosinophils # (auto) 0.01 K/uL (0-0.5); Eosinophils % (auto) 0.2 %; Hematocrit (blood only) 33.8 % (42-52); Hemoglobin 10.8 g/dL (14.0-18.0); Immature Granulocytes # (auto) 0.01 K/uL (0.00-0.02); Immature Granulocytes % (auto) 0.2 %; Lymphocytes # (auto) 0.99 K/uL (1.2-3.4); Lymphocytes % (auto) 15.1 %; Mean Corpuscular Hemoglobin 30.3 pg (25-34); Mean Corpuscular Volume 94.7 fL (80-100); Mean Platelet Volume 9.8 fL (7.4-10.4); Monocytes # (auto) 0.87 K/uL (0.11-0.59); Monocytes % (auto) 13.3 %; Neutrophils # (auto) 4.64 K/uL (1.4-6.5); Neutrophils % (auto) 70.9 %; Platelet Count 198 K/uL (130-400); RDW Coefficient of Variation 15.3 % (11.5-14.5); RDW Standard Deviation 52.2 fL (36.4-46.3); Red Blood Count 3.57 M/uL (4.7-6.1); White Blood Count 6.54 K/uL (4.8-10.8)
[2019-09-24 06:53] LABS: BUN Creatinine Ratio 21.2 (10-20); Calcium 8.2 mg/dl (8.5-10.1); Creatinine Clr Calc Pharmacy 40.2 ml/min; Est GFR (African American) 34.2; Est GFR (Non-African American) 29.5; Potassium 3.8 mmol/L (3.5-5.1)
[2019-09-24] MEDS: AMLODIPINE BESYLATE 5 MG TAB PO SCH (08:38)
[2019-09-24] MEDS: INSULIN ASPART 100 UNITS/ML 3 ML PEN SC SCH ×4 (08:38→20:34)
[2019-09-24] MEDS: ATORVASTATIN 40 MG TAB PO SCH (08:38)
[2019-09-24] MEDS: INSULIN GLARGINE SOLOSTAR 100 UNITS/ML 3 ML PEN SC SCH ×2 (08:38→20:34)
[2019-09-24] MEDS: FUROSEMIDE 40 MG in SYRINGE 0 ML IV SCH ×2 (08:38→16:36)
[2019-09-24] MEDS: METOPROLOL SUCC 50MG EXT REL TAB PO SCH (08:38)
[2019-09-24] MEDS: MAGNESIUM OXIDE 400 MG TAB PO SCH ×2 (08:38→20:34)
[2019-09-24] MEDS: APIXABAN 5 MG TABLET PO SCH ×2 (08:38→20:33)
--- NOTE | 2019-09-24 10:40 | Cardiology Progress Note ---
Date of Service September 24, 2019 Assessment & Plan (1) Atrial fibrillation: No symptoms. Adequate rate control. On Eliquis. (2) ICD (implantable cardioverter-defibrillator) in place: normally functioning device. No therapies. At some point we could consider an upgrade to a biventricular device in the outpatient setting if he continues to have significant RV pacing. (3) Ischemic cardiomyopathy: Longstanding. Clearly decompensated at this point. His outpatient medical regimen consists of an IVA-inhibitor and metoprolol succinate (4) CAD (coronary artery disease): He is known to have occlusive coronary disease. Do not believe his current symptoms are likely related to an acute coronary syndrome. Biomarkers are quite low despite extended period of symptom. His chest discomfort is more likely related to pulmonary congestion. He can be continued on his beta- alma. Aspirin discontinued in favor of Eliquis. Currently using nitroglycerin for symptom improvement. (5) CHF (congestive heart failure): Doing well this diuresis. Renal function stable. Lasix dose increased yesterday. At some point would be reasonable to consider changing to an oral dose to see if he continues to affect a diuresis prior to discharge. Admission and Anticipated Discharge Date Admission Date: September 18, 2019 Subjective This morning the patient is feeling well. He was sitting up in chair without supplemental oxygen or CPAP. He states his breathing continues to improve. It is easier for him to bend over and burr picker things without significant dyspnea. He has been ambulatory to the [facility]. Review of Systems Review of Systems: Per HPI Physical Exam Physical Exam: The patient is alert and oriented. Mood and affect appeared normal. He answered all questions appropriately. HEENT: Pupils are equal and reactive to light and accommodation. Extraocular movements are intact. The sclerae are anicteric. Neuro: Cranial nerves intact Neck: Patient's neck is supple. He has palpable carotid pulses bilaterally without bruits on auscultation. The thyroid is not enlarged. Lungs: Rales in the lower lung kebede. No expiratory wheezing. Normal respiratory effort.. Cardiac: Heart demonstrates an irregular rate and rhythm. Normal S1 and S2. Holosystolic murmur variable intensity. Pulses: The patient has palpable radial pulses bilaterally that are equal in intensity Extremities: There was no evidence of hypoperfusion. There is no cyanosis or clubbing. Wearing compression stockings. Notable anasarca with leg, scrotal, abdominal in even facial edema.. Skin: I did not appreciate any rashes on examination today. Results & Data ([facility]) Vital Signs (Past 12 Hours) Vital Signs Temp Pulse Pulse Resp BP BP Pulse Ox 09/24/19 07:30 36.8 C 54 L 20 135/80 92 09/24/19 03:46 36.9 C 65 20 126/88 90 09/24/19 03:43 45 L 16 91 09/23/19 23:47 36.6 C 56 L 18 158/88 H 92 09/23/19 22:43 56 L 18 93 Laboratory Results Abnormal Lab Results 09/23/19 09/23/19 09/23/19 11:05 16:12 20:02 WBC RBC Hgb Hct MCV MCH MCHC RDW Std Deviation RDW Coeff of Nini Plt Count MPV Immature Gran % (Auto) Neut % (Auto) Lymph % (Auto) [place] % (Auto) Eos % (Auto) Baso % (Auto) Immature Gran # (Auto) Neut # (Auto) Lymph # (Auto) [place] # (Auto) Eos # (Auto) Baso # (Auto) Sodium Potassium Chloride Carbon Dioxide Anion Gap BUN Creatinine Est Cr Clr Drug Dosing Est GFR ( Amer) Est GFR (Non-Af Amer) BUN/Creatinine Ratio Glucose POC Glucose 232 H 210 H 156 H Calcium 09/24/19 09/24/19 09/24/19 05:33 05:33 07:36 WBC 6.54 RBC 3.57 L Hgb 10.8 L Hct 33.8 L MCV 94.7 MCH 30.3 MCHC 32.0 RDW Std Deviation 52.2 H RDW Coeff of Nini 15.3 H Plt Count 198 MPV 9.8 Immature Gran % (Auto) 0.2 Neut % (Auto) 70.9 Lymph % (Auto) 15.1 [place] % (Auto) 13.3 Eos % (Auto) 0.2 Baso % (Auto) 0.3 Immature Gran # (Auto) 0.01 Neut # (Auto) 4.64 Lymph # (Auto) 0.99 L [place] # (Auto) 0.87 H Eos # (Auto) 0.01 Baso # (Auto) 0.02 Sodium 142 Potassium 3.8 Chloride 110 H Carbon Dioxide 28 Anion Gap 4.0 BUN 48 H Creatinine 2.26 H Est Cr Clr Drug Dosing 40.2 Est GFR ( Amer) 34.2 Est GFR (Non-Af Amer) 29.5 BUN/Creatinine Ratio 21.2 H Glucose 148 H POC Glucose 198 H Calcium 8.2 L PG Care Time/CCT Total # of Minutes Spent Total Time Spent with Patient: Total time spent is greater than 50% in coordination of care (as documented) at patient's floor/unit and/or counseling patient: Coding Level of Care Code 56857 Subseq Hosp Care Lvl 2 Diagnoses Atrial fibrillation I48.91 ICD (implantable cardioverter-defibrillator) in place Z95.810 Ischemic cardiomyopathy I25.5 CAD (coronary artery disease) I25.10 CHF (congestive heart failure) I50.9 Heart failure chronicity: acute Heart failure type: unspecified (1) CHF (congestive heart failure) Heart failure chronicity: acute Heart failure type: unspecified Qualified Code(s): I50.9 - Heart failure, unspecified
--- NOTE | 2019-09-24 11:57 | Pharmacy Report ---
Pharmacy Glycemic Short Note 2 - Date of Service September 24, 2019 - Glycemic Short BSG Results (Last 24 hours): 09/23/19 09/23/19 09/24/19 16:12 20:02 05:33 Glucose 148 H POC Glucose 210 H 156 H 09/24/19 09/24/19 07:36 11:35 Glucose POC Glucose 198 H 256 H OUTPATIENT ANTIDIABETIC REGIMEN: * Metformin 1 gm BID * Glimepiride 6 mg daily * A1c 8.4% on 09/19/19 ASSESSMENT: 09/23 * BSG 133-232 over last 24 hrs; pt has received 66 units SQ insulin * Fasting BSG 148-198 this AM, with 25 units basal insulin on board - will continue to titrate upwards * Post-prandial BSG elevations again observed yesterday - I am hesitant to increase both basal and prandial insulin doses today, will adjust CF only given increase in basal x 2 days back to back 09/22 * Fasting BSG at goal with 15 units basal insulin on board and after receiving 5 units correctional insulin last evening * Post prandial BSGs have been elevated - likely needs more prandial insulin * Over the last 24 hrs, 55 units of insulin administered * Will up doses of both basal and prandial insulin today, based upon anticipated total daily requirements 50+ units while tolerating a diet PLAN FOR INPATIENT GLYCEMIC CONTROL: * Continue to hold outpatient oral diabetes medications * Basal insulin - increase * Lantus 20 units SQ qAM + 12 units Q PM * Bolus insulin - increase correctional dose * NovoLog per scale ACHS or Q6hrs while NPO * Goal Range: Low 110 mg/dL - High 140 mg/dL * Correction Factor: 20 mg/dL/unit * Nutritional / Prandial insulin per carb ratio of 1 unit per 6 grams CHO consumed
--- NOTE | 2019-09-24 13:55 | Nephrology Progress Note ---
Date of Service September 24, 2019 Assessment & Plan (1) Fluid overload: based on imaging, HF hx, exam, pt ROS -- certainly acute on chronic HF; could also have component of nephrotic syndrome. Patient diuresing well. He was net -1 L yesterday. Ultrasound of the pelvis showed mild ascites. -continue Lasix to 40 mg IV twice daily. -recommend daily STANDING wts and so ordered -cont FR of 1.5 L daily and Na restrictions -if stable will likely change to torsemide 50 mg daily. (2) CKD (chronic kidney disease): unknown baseline creatinine; was 0.8 baseline in 2014 but at that time already w/ 1-2 gm proteinuria. chemistries acceptable; fluid OL as above. Creatinine slightly high today at 2.2 from 2 yesterday -f/u outside records requested by facility -needs to continue OP follow up w/ nephro at his facility -daily bmp, hgb -cont to avoid nephrotoxins (3) Proteinuria: present and > 1 gm daily since at least 2013; could easily be nephrotic range now and may have component of nephrotic syndrome here -no norma/arb currently but may consider introducing as an outpatient -ordered to check prot/creat -needs OP follow up w/ [facility] security controls assessor; need to know what proteinuria w/u if any has been done; could be done as OP if clinically improving Admission and Anticipated Discharge Date Admission Date: September 18, 2019 Subjective Patient feels better today. No shortness of breath at rest. He is off oxygen. Still has lower extremity swelling. He was net -1 L yesterday. Review of Systems Review of Systems: All systems reviewed & are unremarkable except as noted in HPI & below Physical Exam Physical Exam: General exam: Appears comfortable, no acute distress HEENT: Pupils are equal and reactive to light Neck: No JVD, neck is supple trachea is midline Respiratory system: Clear breath sounds bilaterally. Gastrointestinal: Abdomen is soft, non distended, non tender, bowel sounds are present CVS: Regular rate and rhythm. No murmurs, rubs or gallops Musculoskeletal: No joint or muscle tenderness Extremities: Non tender, 1+ edema, peripheral pulses are present Neuro: Oriented, no tremors, no focal neurological deficits Skin: No rashes Results & Data ([facility]) Vital Signs (Past 12 Hours) Vital Signs Temp Pulse Pulse Resp BP BP Pulse Ox 09/24/19 11:30 37.2 C 56 L 16 151/85 H 92 09/24/19 07:30 36.8 C 54 L 20 135/80 92 09/24/19 03:46 36.9 C 65 20 126/88 90 09/24/19 03:43 45 L 16 91 Laboratory Results 09/24/19 05:33 09/24/19 05:33 WBC 6.54 RBC 3.57 L MCV 94.7 MCH 30.3 MCHC 32.0 RDW Std Deviation 52.2 H RDW Coeff of Nini 15.3 H Plt Count 198 MPV 9.8
--- NOTE | 2019-09-24 19:53 | Hospitalist Progress Note ---
Date of Service September 24, 2019 Assessment & Plan (1) Ischemic cardiomyopathy: (1) New onset atrial fibrillation: 64-year-old male with history of coronary disease, status post stent placement, ischemic cardiomyopathy, status post AICD placement, Diabetes type 2, hypertension, obstructive sleep apnea, CKD stage II presenting with shortness of breath and leg swelling #1 new onset atrial fibrillation EKG: afib, rate 64, left anterior fascicular block, ventricular paced. In ER HR 50's-60's CHADSVASC: 4 -Remains heart rate controlled -Metoprolol heart rate 25 mg twice daily changed to metoprolol succinate 50 mg p.o. daily -Transitioned from heparin to Eliquis -Discussed with cardiology service Dr. carson Possible cardioversion once patient is adequately anticoagulated - stable #2 acute on chronic systolic congestive heart failure exacerbation, history of AICD placement CXR: Cardiomegaly with pulmonary vascular congestion and interstitial coarsening suggestive of pulmonary edema. Bibasilar consolidative opacities suggest atelectasis or pneumonitis. Probable trace pleural effusions. Repeat echo noted -Was given Lasix IV 60 mg twice a day -Also on Nitropaste -Patient diuresed -However creatinine increased now to 2.2, baseline is 1.2 -Records being obtained from [facility] to establish patient's renal function for the past 3 years Carbide Operator consulted -Increased Lasix to 40 mg IV twice daily-- > continue Monitor renal function (3) Chest pain: Primary service notes: Episode CP last night and this morning. Had 2 sprays of nitroglycerin in route by EMS with resolution of chest pain Troponin: Remained 0.02 -Acute coronary syndrome unlikely per cardiology service -Continue aspirin, statin, metoprolol (4) CAD (coronary artery disease): S/P Stent -CP work up as above H/O LEFT APICAL ANEURYSM Per admitting service notes: Previously on Coumadin. Coumadin was discontinued while in nursing home -Heparin transitioned to Eliquis tolerating Eliquis well (5) acute kidney injury on CKD (chronic kidney disease) stage IV Present records indicate CKD. Unsure of CKD stage and baseline labs BUN: 38, Cr: 1.99, GFR: 34.5 --Scanned outpatient records reviewed, BMP from 2014 showing creatinine of 1.2, GFR 61 -- Carbide Operator consulted for Lasix recommendations --- stable at crea ~2 monitor while on Lasix IV (6) HTN (hypertension): Stable -Continue amlodipine, metoprolol -Monitor BP (7) 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, type II: -A1c in a.m. -Hold glimepiride, metformin -Novolog sliding scale per protocol (8) RYAN (obstructive sleep apnea): -CPAP HS DVT Prophylaxis -On Eliquis Full Code as per discussion with pt Follows with Dr Rodriguez at [facility] for routine care Disposition pending anticipate discharge to [facility] when medically stable, cleared by Nephro and Cardiology Admission and Anticipated Discharge Date Admission Date: September 18, 2019 Subjective ff up for CHF, A fib seen resting in bed,sitting up,not in distress states he feels improved today less dyspnea on exertion no chest pain still has leg swelling no other symptoms Review of Systems Review of Systems: All systems reviewed & are unremarkable except as noted in HPI & below Physical Exam Physical Exam: General- oriented x 3, not in distress, speaks in sentences with no effort or accessory muscle use Eyes- anicteric less periorbital edema Neck- no JVD Lungs-mild rales at the bases,no wheeze Heart- normal rate, regular rhythm; no murmurs Abdomen- normal bowel sounds, nondistended, soft, nontender Extremities- grade 1 bilateral lower leg edema,no calf tenderness Neuro- alert, oriented x 3; no gross focal neurologic deficits Skin- warm & dry Results & Data ([facility]) Vital Signs (Past 12 Hours) Vital Signs Temp Pulse Pulse Resp BP Pulse Ox 09/24/19 19:10 36.5 C 59 L 19 153/87 H 94 09/24/19 16:00 56 L 09/24/19 15:31 36.5 C 57 L 20 176/87 H 95 09/24/19 11:30 37.2 C 56 L 16 151/85 H 92
[2019-09-25 06:47] LABS: Basophils # (auto) 0.02 K/uL (0-0.2); Basophils % (auto) 0.3 %; Eosinophils # (auto) 0.02 K/uL (0-0.5); Eosinophils % (auto) 0.3 %; Hematocrit (blood only) 35.6 % (42-52); Hemoglobin 11.6 g/dL (14.0-18.0); Immature Granulocytes # (auto) 0.01 K/uL (0.00-0.02); Immature Granulocytes % (auto) 0.1 %; Lymphocytes # (auto) 1.12 K/uL (1.2-3.4); Lymphocytes % (auto) 14.9 %; Mean Corpuscular Hemoglobin 30.4 pg (25-34); Mean Corpuscular Hgb Conc 32.6 g/dL (32-36); Mean Corpuscular Volume 93.4 fL (80-100); Mean Platelet Volume 9.1 fL (7.4-10.4); Monocytes # (auto) 1.03 K/uL (0.11-0.59); Monocytes % (auto) 13.7 %; Neutrophils # (auto) 5.34 K/uL (1.4-6.5); Neutrophils % (auto) 70.7 %; Platelet Count 224 K/uL (130-400); RDW Coefficient of Variation 15.3 % (11.5-14.5); RDW Standard Deviation 52.2 fL (36.4-46.3); Red Blood Count 3.81 M/uL (4.7-6.1); White Blood Count 7.54 K/uL (4.8-10.8)
[2019-09-25 07:20] LABS: BUN Creatinine Ratio 20.4 (10-20); Calcium 9.1 mg/dl (8.5-10.1); Creatinine Clr Calc Pharmacy 36.6 ml/min; Est GFR (African American) 30.9; Est GFR (Non-African American) 26.7; Potassium 3.6 mmol/L (3.5-5.1)
[2019-09-25] MEDS: FUROSEMIDE 40 MG in SYRINGE 0 ML IV SCH (08:06)
[2019-09-25] MEDS: APIXABAN 5 MG TABLET PO SCH ×2 (08:06→20:36)
[2019-09-25] MEDS: METOPROLOL SUCC 50MG EXT REL TAB PO SCH (08:06)
[2019-09-25] MEDS: AMLODIPINE BESYLATE 5 MG TAB PO SCH (08:06)
[2019-09-25] MEDS: MAGNESIUM OXIDE 400 MG TAB PO SCH ×2 (08:06→20:36)
[2019-09-25] MEDS: ATORVASTATIN 40 MG TAB PO SCH (08:06)
[2019-09-25] MEDS: INSULIN GLARGINE SOLOSTAR 100 UNITS/ML 3 ML PEN SC SCH ×2 (08:06→20:36)
[2019-09-25] MEDS: INSULIN ASPART 100 UNITS/ML 3 ML PEN SC SCH ×4 (08:07→20:37)
--- NOTE | 2019-09-25 08:44 | XRay Report ---
XR chest 2V PA/lateral CLINICAL HISTORY: 64 years-old Male presenting with follow lung infiltrates. TECHNIQUE: PA and lateral views of the chest were obtained. COMPARISON: 09/19/2019. FINDINGS: Left subclavian implanted cardiac defibrillator with leads to the right atrium and right ventricular apex. Cardiac silhouette mildly enlarged. Prominence of pulmonary vasculature slightly decreased from prior. Interval decrease in interstitial prominence. There is slightly improved aeration of the lung s with decreased bibasilar opacities. Some degree of bibasilar opacity persists, left greater than ri ght. No large effusion or pneumothorax. Osseous structures normal. Upper abdomen normal. IMPRESSION: 1. Interval decrease in congestive change and pulmonary edema. 2. Bibasilar atelectasis and trace edema persists. ACT 112: Negative or not required by law. Electronically signed by: Wolfgang Frazier M.D. 09/25/2019 8:42 AM
[2019-09-25] MEDS: TORSEMIDE 10 MG TAB PO SCH (09:23)
--- NOTE | 2019-09-25 11:56 | Pharmacy Report ---
Pharmacy Glycemic Short Note 2 - Date of Service September 25, 2019 - Glycemic Short BSG Results (Last 24 hours): 09/24/19 09/24/19 09/25/19 16:07 20:03 06:29 Glucose 92 POC Glucose 154 H 188 H 09/25/19 09/25/19 07:29 11:18 Glucose POC Glucose 104 H 186 H OUTPATIENT ANTIDIABETIC REGIMEN: * Metformin 1 gm BID * Glimepiride 6 mg daily * A1c 8.4% on 09/19/19 ASSESSMENT: 09/24 * BSGs improving * Over last 24 hrs, pt received 65units SQ insulin while tolerating a diet * Fasting BSG 104 this AM with 32 units basal on board - will continue w/ the same given total daily requirements * Post-prandial BSGs better controlled when prandial dosage increased yesterday - will continue w/ same today now that fasting BSG improved / * BSG 133-232 over last 24 hrs; pt has received 66 units SQ insulin * Fasting BSG 148-198 this AM, with 25 units basal insulin on board - will continue to titrate upwards * Post-prandial BSG elevations again observed yesterday - I am hesitant to in crease both basal and prandial insulin doses today, will adjust CF only given increase in basal x 2 days back to back 09/22 * Fasting BSG at goal with 15 units basal insulin on board and after receiving 5 units correctional insulin last evening * Post prandial BSGs have been elevated - likely needs more prandial insulin * Over the last 24 hrs, 55 units of insulin administered * Will up doses of both basal and prandial insulin today, based upon anticipated total daily requirements 50+ units while tolerating a diet PLAN FOR INPATIENT GLYCEMIC CONTROL: * Continue to hold outpatient oral diabetes medications * Basal insulin - no change * Lantus 20 units SQ qAM + 12 units Q PM * Bolus insulin - no change * NovoLog per scale ACHS or Q6hrs while NPO * Goal Range: Low 110 mg/dL - High 140 mg/dL * Correction Factor: 20 mg/dL/unit * Nutritional / Prandial insulin per carb ratio of 1 unit per 6 grams CHO consumed
--- NOTE | 2019-09-25 12:42 | Hospitalist Progress Note ---
Date of Service September 25, 2019 Assessment & Plan (1) Ischemic cardiomyopathy: New onset atrial fibrillation: -64-year-old male with history of coronary disease, status post stent placement, ischemic cardiomyopathy, status post AICD placement, Diabetes type 2, hypertension, obstructive sleep apnea, CKD stage II presenting with shortness of breath and leg swelling -new onset atrial fibrillation on this admission with EKG: afib, rate 64, left anterior fascicular block, ventricular paced. In ER HR 50's-60's CHADSVASC: 4 -was transitioned from metoprolol tartrate 25 mg BID to metoprolol succinate 50 mg daily. plans to start metoprolol succinate 50 mg daily on 09/26/2019 to avoid bradycardia -was transitioned from heparin to apixaban 5 mg BID on this admission, continue Chest pain: -admission notes of chest pain outpatient; Had 2 sprays of nitroglycerin in route by EMS with resolution of chest pain -Acute coronary syndrome unlikely per cardiology service -Continue aspirin, statin, metoprolol CAD (coronary artery disease): S/P Stent in the past H/O LEFT APICAL ANEURYSM Per admitting service notes:Previously on Coumadin. Coumadin was discontinued while in long-term -currently on Eliquis because of atrial fibrillation acute on chronic systolic congestive heart failure exacerbation, history of AICD placement -CXR: Cardiomegaly with pulmonary vascular congestion and interstitial coarsening suggestive of pulmonary edema. Bibasilar consolidative opacities suggest atelectasis or pneumonitis. Probable trace pleural effusions. -patient has been on IV Lasix and nitropaste with creatinine rising from reported baseline 1.2 to 2.46 -currently management as of 09/25/2019: Patient seen and examined at bedside. Patient breathing on room air. Patient noted to have bradycardia into low 40s overnight on telemetry. Patient already receive AM dose of metoprolol. Plan to monitor patient overnight on telemetry and then the dose of metoprolol succinate to be cut in half from 50 mg daily to 25 mg daily. No dizziness. no chest discomforts.. discussed with medical provider at [facility] about recommendations on less beta alma when ready for hospital discharge Patient switched to torsemide 40 mg daily as per inpatient nephrology. [facility] [place] reports that their medication formulary is either furosemide or bumentanide for which patient had been on 2 mg daily as outpatient. Therefor any changes to oral diuretics will need to be converted to furosemide or bumetanide. Patient breathing on room air with some bilateral lower extremity edema. Patient does not feel short of breath. Creatinine is 2.46 on 09/25/2019 and plan to repeat renal function on 09/26/2019. Discussed with medi jad provider at [facility] that outpatient metformin is contraindicated based on renal function. Discussed with pharmacy glycemic control about estimating insulin requirements and outpatient glimepiride use. Continue with current insulin alone for diabetes mellitus management acute kidney injury on CKD (chronic kidney disease) stage IV -management as above 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, type II: HbA1c above 8 -continue to Hold glimepiride, metformin -pharmacy glycemic control using long acting Lantus and short acting apart -outpatient plans as documented above HTN (hypertension): -Continue amlodipine, metoprolol -Monitor BP RYAN (obstructive sleep apnea): -CPAP HS DVT Prophylaxis -On Eliquis Full Code as per discussion with pt Follows with Dr Rodriguez at [facility] for routine care Admission and Anticipated Discharge Date Admission Date: September 18, 2019 Subjective Patient seen and examined at bedside. Patient breathing on room air. Patient noted to have bradycardia into low 40s overnight on telemetry. Patient already receive AM dose of metoprolol. Plan to monitor patient overnight on telemetry and then the dose of metoprolol succinate to be cut in half from 50 mg daily to 25 mg daily. No dizziness. no chest discomforts.. discussed with medical provider at [facility] about recommendations on less beta alma when ready for hospital discharge Patient switched to torsemide 40 mg daily as per inpatient nephrology. [facility] reports that their medication formulary is either furosemide or bumentanide for which patient had been on 2 mg daily as outpatient. Therefor any changes to oral diuretics will need to be converted to furosemide or bumetanide. Patient breathing on room air with some bilateral lower extremity edema. Patient does not feel short of breath. Creatinine is 2.46 on 09/25/2019 and plan to repeat renal function on 09/26/2019. Discussed with medical provider at [facility] that outpatient metformin is contraindicated based on renal function. Discussed with pharmacy glycemic control about estimating insulin requirements and outpatient glimepiride use. Continue with current insulin alone for diabetes mellitus management Review of Systems Review of Systems: All systems reviewed & are unremarkable except as noted in HPI & below Physical Exam Constitutional: comfortable Eyes: PERRL, conjunctivae normal, anicteric sclerae EOM intact bilaterally ENMT: external ear and nose normal, oropharynx normal Neck: normal visual inspection Respiratory: normal respiratory effort, lungs clear to auscultation Cardiovascular: Rate/Rhythm: + bradycardic Gastrointestinal (Abdomen): normal bowel sounds, soft, nontender, no hepatosplenomegaly Musculoskeletal: Head/Neck/Chest: normocephalic and head atraumatic some mild bilateral lower extremity edema Neurologic: PERRL, EOMI, accommodation nl, no face palsy, no dysarthria CN's II-XI intact bilaterally Results & Data ([facility]) Vital Signs (Past 12 Hours) Vital Signs Temp Pulse Resp BP Pulse Ox 09/25/19 11:21 36.7 C 52 L 20 165/94 H 93 09/25/19 07:54 36.9 C 66 18 147/84 H 98 09/25/19 04:10 36.7 C 61 18 150/86 H 90
--- NOTE | 2019-09-25 16:00 | Nephrology Progress Note ---
Date of Service September 25, 2019 Assessment & Plan (1) Fluid overload: based on imaging, HF hx, exam, pt ROS -- certainly acute on chronic HF; could also have component of nephrotic syndrome. Patient diuresing well. He was net -1 L yesterday. Ultrasound of the pelvis showed mild ascites. -Switch to torsemide 40mg po daily. -daily STANDING wts -cont FR of 1.5 L daily and Na restrictions (2) CKD (chronic kidney disease): unknown baseline creatinine; was 0.8 baseline in 2014 but at that time already w/ 1-2 gm proteinuria. chemistries acceptable; fluid OL as above. Creatinine slightly high today at 2.4 from 2.2 yesterday -f/u outside records requested by facility -needs to continue OP follow up w/ nephro at his facility -daily bmp, hgb -cont to avoid nephrotoxins (3) Proteinuria: present and > 1 gm daily since at least 2013; could easily be nephrotic range now and may have component of nephrotic syndrome here -no norma/arb currently but may consider introducing as an outpatient -ordered to check prot/creat -needs OP follow up w/ correction drug room clerk; need to know what proteinuria w/u if any has been done; could be done as OP if clinically improving Admission and Anticipated Discharge Date Admission Date: September 18, 2019 Subjective Breathing is better. He was net negative 2.8 litres. cr up trending to 2.4. Still edematous Review of Systems Review of Systems: All systems reviewed & are unremarkable except as noted in HPI & below Physical Exam Physical Exam: General exam: Appears comfortable, no acute distress HEENT: Pupils are equal and reactive to light Neck: No JVD, neck is supple trachea is midline Respiratory system: Clear breath sounds bilaterally. Gastrointestinal: Abdomen is soft, non distended, non tender, bowel sounds are present CVS: Regular rate and rhythm. No murmurs, rubs or gallops Musculoskeletal: No joint or muscle tenderness Extremities: Non tender, 1+ edema, peripheral pulses are present Neuro: Oriented, no tremors, no focal neurological deficits Skin: No rashes Results & Data ([facility]) Vital Signs (Past 12 Hours) Vital Signs Temp Pulse Pulse Resp BP Pulse Ox 09/25/19 15:24 36.5 C 54 L 19 130/88 91 09/25/19 15:00 66 09/25/19 11:21 36.7 C 52 L 20 165/94 H 93 09/25/19 07:54 36.9 C 66 18 147/84 H 98 09/25/19 04:10 36.7 C 61 18 150/86 H 90 Laboratory Results 09/25/19 06:29 09/25/19 06:29 WBC 7.54 RBC 3.81 L MCV 93.4 MCH 30.4 MCHC 32.6 RDW Std Deviation 52.2 H RDW Coeff of Nini 15.3 H Plt Count 224 MPV 9.1
--- NOTE | 2019-09-25 17:56 | Cardiology Progress Note ---
Date of Service September 25, 2019 Assessment & Plan (1) Atrial fibrillation: No symptoms. Adequate rate control. On Eliquis. NO plans for cardioversion during this admission. (2) ICD (implantable cardioverter-defibrillator) in place: normally functioning device. No therapies. At some point we could consider an upgrade to a biventricular device in the outpatient setting if he continues to have significant RV pacing. (3) Ischemic cardiomyopathy: Longstanding. Clearly decompensated at this point. His outpatient medical regimen consists of an IVA-inhibitor and metoprolol succinate (4) CAD (coronary artery disease): He is known to have occlusive coronary disease. Do not believe his current symptoms are likely related to an acute coronary syndrome. Biomarkers are quite low despite extended period of symptom. His chest discomfort is more likely related to pulmonary congestion. He can be continued on his beta- alma. Aspirin discontinued in favor of Eliquis. Currently using nitroglycerin for symptom improvement. (5) CHF (congestive heart failure): He diuresed well yesterday on a higher dose of lasix. His renal function declined some. Continue diuresis and consider switch to an oral regimen at some point to see if we can continue the diuresis as an outpatient. Admission and Anticipated Discharge Date Admission Date: September 18, 2019 Subjective Breathing overall improved. Up in a chair most of yesterday. NO CP. Edema improving Review of Systems Review of Systems: per HPI Physical Exam Physical Exam: The patient is alert and oriented. Mood and affect appeared normal. He answered all questions appropriately. HEENT: Pupils are equal and reactive to light and accommodation. Extraocular movements are intact. The sclerae are anicteric. Neuro: Cranial nerves intact Lungs: Clear lung kebede. No expiratory wheezing. Normal respiratory effort.. Cardiac: Heart demonstrates an irregular rate and rhythm. Normal S1 and S2. Holosystolic murmur variable intensity. Pulses: The patient has palpable radial pulses bilaterally that are equal in intensity Extremities: There was no evidence of hypoperfusion. There is no cyanosis or clubbing. Skin: I did not appreciate any rashes on examination today. Results & Data ([facility]) Vital Signs (Past 12 Hours) Vital Signs Temp Pulse Pulse Resp BP Pulse Ox 09/25/19 15:24 36.5 C 54 L 19 130/88 91 09/25/19 15:00 66 09/25/19 11:21 36.7 C 52 L 20 165/94 H 93 09/25/19 07:54 36.9 C 66 18 147/84 H 98 Laboratory Results Abnormal Lab Results 09/24/19 09/25/19 09/25/19 20:03 06:29 06:29 WBC 7.54 RBC 3.81 L Hgb 11.6 L Hct 35.6 L MCV 93.4 MCH 30.4 MCHC 32.6 RDW Std Deviation 52.2 H RDW Coeff of Nini 15.3 H Plt Count 224 MPV 9.1 Immature Gran % (Auto) 0.1 Neut % (Auto) 70.7 Lymph % (Auto) 14.9 [place] % (Auto) 13.7 Eos % (Auto) 0.3 Baso % (Auto) 0.3 Immature Gran # (Auto) 0.01 Neut # (Auto) 5.34 Lymph # (Auto) 1.12 L [place] # (Auto) 1.03 H Eos # (Auto) 0.02 Baso # (Auto) 0.02 Sodium 141 Potassium 3.6 Chloride 109 H Carbon Dioxide 25 Anion Gap 7.0 BUN 50 H Creatinine 2.46 H Est Cr Clr Drug Dosing 36.6 Est GFR ( Amer) 30.9 Est GFR (Non-Af Amer) 26.7 BUN/Creatinine Ratio 20.4 H Glucose 92 POC Glucose 188 H Calcium 9.1 09/25/19 09/25/19 09/25/19 07:29 11:18 16:15 WBC RBC Hgb Hct MCV MCH MCHC RDW Std Deviation RDW Coeff of Nini Plt Count MPV Immature Gran % (Auto) Neut % (Auto) Lymph % (Auto) [place] % (Auto) Eos % (Auto) Baso % (Auto) Immature Gran # (Auto) Neut # (Auto) Lymph # (Auto) [place] # (Auto) Eos # (Auto) Baso # (Auto) Sodium Potassium Chloride Carbon Dioxide Anion Gap BUN Creatinine Est Cr Clr Drug Dosing Est GFR ( Amer) Est GFR (Non-Af Amer) BUN/Creatinine Ratio Glucose POC Glucose 104 H 186 H 205 H Calcium PG Care Time/CCT Total # of Minutes Spent Total Time Spent with Patient: Total time spent is greater than 50% in coordination of care (as documented) at patient's floor/unit and/or counseling patient: Coding Level of Care Code 59878 Subseq Hosp Care Lvl 2 Diagnoses Atrial fibrillation I48.91 ICD (implantable cardioverter-defibrillator) in place Z95.810 Ischemic cardiomyopathy I25.5 CAD (coronary artery disease) I25.10 CHF (congestive heart failure) I50.9 Heart failure chronicity: acute Heart failure type: unspecified (1) CHF (congestive heart failure) Heart failure chronicity: acute Heart failure type: unspecified Qualified Code(s): I50.9 - Heart failure, unspecified
[2019-09-26 07:20] LABS: Calcium 8.7 mg/dl (8.5-10.1); Creatinine Clr Calc Pharmacy 37.9 ml/min; Est GFR (African American) 32.7; Est GFR (Non-African American) 28.2; Potassium 3.5 mmol/L (3.5-5.1)
[2019-09-26] MEDS ORDERED: POTASSIUM CHLORIDE 20 MEQ TABCR PO ONE (08:00)
[2019-09-26] MEDS ORDERED: METOPROLOL SUCC 25MG EXT REL TAB PO SCH (09:00)
[2019-09-26] MEDS: AMLODIPINE BESYLATE 5 MG TAB PO SCH (09:37)
[2019-09-26] MEDS: MAGNESIUM OXIDE 400 MG TAB PO SCH (09:37)
[2019-09-26] MEDS: APIXABAN 5 MG TABLET PO SCH (09:37)
[2019-09-26] MEDS: ATORVASTATIN 40 MG TAB PO SCH (09:37)
[2019-09-26] MEDS: INSULIN ASPART 100 UNITS/ML 3 ML PEN SC SCH ×2 (09:38→12:36)
[2019-09-26] MEDS: TORSEMIDE 10 MG TAB PO SCH (09:38)
[2019-09-26] MEDS ORDERED: KETOCONAZOLE 2% CR 15 GM TUBE EXT SCH (11:30)
--- NOTE | 2019-09-26 11:48 | Hospitalist Progress Note ---
Date of Service September 26, 2019 Assessment & Plan (1) Ischemic cardiomyopathy: New onset atrial fibrillation: -64-year-old male with history of coronary disease, status post stent placement, ischemic cardiomyopathy, status post AICD placement, Diabetes type 2, hypertension, obstructive sleep apnea, CKD stage II presenting with shortness of breath and leg swelling -new onset atrial fibrillation on this admission with EKG: afib, rate 64, left anterior fascicular block, ventricular paced. In ER HR 50's-60's CHADSVASC: 4 -was transitioned from metoprolol tartrate 25 mg BID to metoprolol succinate 50 mg daily. plans to start metoprolol succinate 50 mg daily on 09/26/2019 to avoid bradycardia -was transitioned from heparin to Eliquis (apixaban) 5 mg BID Chest pain: -admission notes of chest pain outpatient; Had 2 sprays of nitroglycerin in route by EMS with resolution of chest pain -Acute coronary syndrome unlikely per cardiology service -Continue aspirin, statin, metoprolol CAD (coronary artery disease): S/P Stent in the past H/O LEFT APICAL ANEURYSM Per admitting service notes:Previously on Coumadin. Coumadin was discontinued while in half-way -currently on Eliquis because of atrial fibrillation acute on chronic systolic congestive heart failure exacerbation, history of AICD placement -CXR: Cardiomegaly with pulmonary vascular congestion and interstitial coarsening suggestive of pulmonary edema. Bibasilar consolidative opacities suggest atelectasis or pneumonitis. Probable trace pleural effusions. -patient has been on IV Lasix and nitropaste with creatinine rising from reported baseline 1.2 to 2.46 -currently management as of 09/25/2019: Patient seen and examined at bedside. Patient breathing on room air. Patient noted to have bradycardia into low 40s overnight on telemetry. Patient already receive AM dose of metoprolol. Plan to monitor patient overnight on telemetry and then the dose of metoprolol succinate to be cut in half from 50 mg daily to 25 mg daily. No dizziness. no chest discomforts.. discussed with medical provider at [facility] about recommendations on less beta alma when ready for hospital discharge Patient switched to torsemide 40 mg daily as per inpatient nephrology. [facility] reports that their medication formulary is either furo semide or bumentanide for which patient had been on 2 mg daily as outpatient. Therefor any changes to oral diuretics will need to be converted to furosemide or bumetanide. Patient breathing on room air with some bilateral lower extremity edema. Patient does not feel short of breath. Creatinine is 2.46 on 09/25/2019 and plan to repeat renal function on 09/26/2019. Discussed with medical provider at [facility] that outpatient metformin is contraindicated based on renal function. Discussed with pharmacy glycemic control about estimating insulin requirements and outpatient glimepiride use. Continue with current insulin alone for diabetes mellitus management -creatinine is 2.35 on 09/26/2019 while on torsemide 40 mg daily. discussed with [facility] medical nurse practitioner that patient can return to bumex 2 mg daily which is the torsemide equivalent. metolazone can be considered depending on patient's creatinine levels after hospital discharge acute kidney injury on CKD (chronic kidney disease) stage IV -management as above 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, type II: HbA1c above 8 -continue to Hold glimepiride, metformin -pharmacy glycemic control using long acting Lantus and short acting apart -discharge on Lantus 20 units daily and patient can resume glimperide as outpatient. no further metformin as outpatient Groin Rash -Ketoconazole cream for 10 days to affected area HTN (hypertension): -Continue amlodipine, metoprolol succinate as 25 mg daily RYAN (obstructive sleep apnea): -CPAP HS DVT Prophylaxis -On Eliquis (apixaban) 5 mg BID Admission and Anticipated Discharge Date Admission Date: September 18, 2019 Subjective overnight, heart rate in the 50s. no chest pain. no dizziness. no headache. breathing on room air when assessed by medical doctor in day time. has right groin rash/chafing Review of Systems Review of Systems: All systems reviewed & are unremarkable except as noted in HPI & below Physical Exam Constitutional: comfortable Eyes: PERRL, conjunctivae normal, anicteric sclerae EOM intact bilaterally ENMT: external ear and nose normal, oropharynx normal Neck: normal visual inspection Respiratory: normal respiratory effort, lungs clear to auscultation Cardiovascular: Rate/Rhythm: + bradycardic Gastrointestinal (Abdomen): normal bowel sounds, soft, nontender, no hepatosplenomegaly Musculoskeletal: Head/Neck/Chest: normocephalic and head atraumatic Skin: + rash (right groin rash) Neurologic: PERRL, EOMI, accommodation nl, no face palsy, no dysarthria CN's II-XI intact bilaterally Results & Data ([facility]) Vital Signs (Past 12 Hours) Vital Signs Temp Pulse Pulse Resp BP Pulse Ox 09/26/19 11:32 36.5 C 74 20 134/66 95 09/26/19 07:59 36.9 C 65 18 140/73 96 09/26/19 07:32 57 L 09/26/19 04:01 36.8 C 54 L 19 137/71 91
--- NOTE | 2019-09-26 11:51 | Discharge Summary ---
Date of Service September 26, 2019 Admission HPI Per Admitting Provider Pt is 64 y/o M with PMH CAD s/p stent, ischemic cardiomyopathy s/p ICD, history left apical aneurysm, DM II, HTN, dyslipidemia, RYAN, CKD presented to ER with complaint of shortness of breath x 2-3 weeks. Patient states has noted gradual weight gain over the past 2 to 3 months with increased weight gain over the past month. Patient states has gained approximately 30 pounds. He reports bilateral lower extremity edema which has progressed to scrotal edema and abdominal bloating. He reports past 2 to 3 weeks has been having shortness of breath and orthopnea. In present Bumex was started a couple of weeks ago. Patient states had telemetry med consult with flavorer recently and discussion was to start metolazone however it has not been started yet. Patient states last night had some anterior left-sided chest aching, however he reports that he did not ask for his sublingual nitro. During transport to ER today patient reports EMS gave 2 sprays of nitroglycerin and since he has not had any further chest discomfort. Patient reports sitting fully upright and on oxygen in ER he feels much more comfortable and feels like his less short of breath. Patient with history of left apical aneurysm and previously was on Coumadin however patient states was taken off Coumadin in longterm as they felt it was not necessary. Pt states that his diet has been different since being incarcerated. Denies fever/chills, diaphoresis, N/V/D/C, BRUNO, dizziness, syncope, vision changes, neck pain, palpitations, cough, sore throat, choking, otalgia, rhinorrhea, abdominal pain, paresthesias, weakness, rashes, dysuria, hematuria, urinary frequency or retention. Admission Exam Per Admitting Provider General: no acute distress on supplemental oxygen and sitting upright, obese Head: normocephalic, atraumatic Eyes: PERRL, EOM's intact, conjunctiva non-injected, anicteric ENT: normal inspection external ears, nose, mucous membranes moist Neck: supple, trachea midline Lungs: R: 20, 92 % on 4L NC, no retractions, +diminished breath sounds CV: irregularly irregular, rate 58, no murmur, JVD, 3+ edema BLE, edema extending to scrotum and abdomen Abd: normal BS, distended, non-tender Ext: no cyanosis, no calf tenderness Neuro: A&O x 3, no focal deficits noted, normal affect Skin: warm, dry Principal Diagnosis Ischemic cardiomyopathy (chronic) Chest Pain New onset atrial fibrillation acute on chronic systolic congestive heart failure exacerbation (hypervolemia) acute kidney injury on CKD (chronic kidney disease) stage IV 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 type II without nursing home current use of insulin Hypertension Groin rash Discharge Exam Constitutional comfortable Eyes PERRL, conjunctivae normal, anicteric sclerae EOM intact bilaterally ENMT external ear and nose normal, oropharynx normal Neck normal visual inspection Respiratory normal respiratory effort, lungs clear to auscultation Cardiovascular Rate/Rhythm: + bradycardic Gastrointestinal (Abdomen) normal bowel sounds, soft, nontender, no hepatosplenomegaly Musculoskeletal Head/Neck/Chest: normocephalic and head atraumatic Skin + rash (right groin rash) Neurologic PERRL, EOMI, accommodation nl, no face palsy, no dysarthria CN's II-XI intact bilaterally Discharge Data Allergies Allergy/AdvReac Type Severity Reaction Status Date / Time Sulfa (Sulfonamide Allergy Intermediate "RASH A Verified 09/18/19 11:50 Antibiotics) CHILD" Penicillins Allergy Mild "RASH A Verified 09/18/19 11:50 CHILD" camphor Allergy Unknown Verified 09/18/19 11:50 [From Guadalupe Nordman (with capsicum)] capsaicin Allergy Unknown Verified 09/18/19 11:50 [From Guadalupe Nordman (with capsicum)] menthol Allergy Unknown Verified 09/18/19 11:50 [From Guadalupe Nordman (with capsicum)] Consultations 09/18/19 12:55 ED Decision to Admit Stat 09/18/19 16:00 Consult Cardiology Routine 09/20/19 09:00 Consult Nephrology Routine 09/20/19 09:53 Consult Health Information Management Routine Ordered Studies 09/20/19 13:00 US renal/blad retro comp Routine 09/23/19 10:06 US abdomen ltd ascites Routine Hospital Course (1) Ischemic cardiomyopathy: New onset atrial fibrillation: -64-year-old male with history of coronary disease, status post stent placement, ischemic cardiomyopathy, status post AICD placement, Diabetes type 2, hypertension, obstructive sleep apnea, CKD stage II presenting with shortness of breath and leg swelling -new onset atrial fibrillation on this admission with EKG: afib, rate 64, left anterior fascicular block, ventricular paced. In ER HR 50's-60's CHADSVASC: 4 -was transitioned from metoprolol tartrate 25 mg BID to metoprolol succinate 50 mg daily. plans to start metoprolol succinate 50 mg daily on 09/26/2019 to avoid bradycardia -was transitioned from heparin to Eliquis (apixaban) 5 mg BID Chest pain: -admission notes of chest pain outpatient; Had 2 sprays of nitroglycerin in route by EMS with resolution of chest pain -Acute coronary syndrome unlikely per cardiology service -Continue aspirin, statin, metoprolol CAD (coronary artery disease): S/P Stent in the past H/O LEFT APICAL ANEURYSM Per admitting service notes:Previously on Coumadin. Coumadin was discontinued while in longterm -currently on Eliquis because of atrial fibrillation acute on chronic systolic congestive heart failure exacerbation, history of AICD placement -CXR: Cardiomegaly with pulmonary vascular congestion and interstitial coarsening suggestive of pulmonary edema. Bibasilar consolidative opacities suggest atelectasis or pneumonitis. Probable trace pleural effusions. -patient has been on IV Lasix and nitropaste with creatinine rising from reported baseline 1.2 to 2.46 -currently management as of 09/25/2019: Patient seen and examined at bedside. Patient breathing on room air. Patient noted to have bradycardia into low 40s overnight on telemetry. Patient already receive AM dose of metoprolol. Plan to monitor patient overnight on telemetry and then the dose of metoprolol succinate to be cut in half from 50 mg daily to 25 mg daily. No dizziness. no chest discomforts.. discussed with medical provider at [facility] about recommendations on less beta alma when ready for hospital discharge Patient switched to torsemide 40 mg daily as per inpatient nephrology. [facility] reports that their medication formulary is either furosemide or bumentanide for which patient had been on 2 mg daily as outpatient. Therefor any changes to oral diuretics will need to be converted to furosemide or bumetanide. Patient breathing on room air with some bilateral lower extremity edema. Patient does not feel short of breath. Creatinine is 2.46 on 09/25/2019 and plan to repeat renal function on 09/26/2019. Discussed with medical provider at [facility] that outpatient metformin is contraindicated based on renal function. Discussed with pharmacy glycemic control about estimating insulin requirements and outpatient glimepiride use. Continue with current insulin alone for diabetes mellitus management -creatinine is 2.35 on 09/26/2019 while on torsemide 40 mg daily. discussed with [facility] medical nurse practitioner that patient can return to bumex 2 mg daily which is the torsemide equivalent. metolazone can be considered depending on patient's creatinine levels after hospital discharge acute kidney injury on CKD (chronic kidney disease) stage IV -management as above 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, type II: HbA1c above 8 -continue to Hold glimepiride, metformin -pharmacy glycemic control using long acting Lantus and short acting apart -discharge on Lantus 20 units daily and patient can resume glimperide as outpatient. no further metformin as outpatient Groin Rash -Ketoconazole cream for 10 days to affected area HTN (hypertension): -Continue amlodipine, metoprolol succinate as 25 mg daily RYAN (obstructive sleep apnea): -CPAP HS DVT Prophylaxis -On Eliquis (apixaban) 5 mg BID Total Time Total Time Spent Total Time Spent (In Minutes): 40 minutes Total Time Includes: Examination of the Patient, Discharge Planning, Medication Reconciliation and Communication With Other Providers Discharge Plan Discharge Items [facility] Reason For Visit: FLUID OVERLOAD Discharge Diagnosis: Ischemic cardiomyopathy (chronic) Chest Pain New onset atrial fibrillation acute on chronic systolic congestive heart failure exacerbation (hypervolemia) acute kidney injury on CKD (chronic kidney disease) stage IV 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 type 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 current 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 of insulin Hypertension Groin rash Condition on Discharge: Good Activity: Per Instructions section Non-emergency contact: Primary Care Provider Call non-emergency contact if: you have any medication questions Follow-up/Referrals: [facility] KATZ [Primary Care Provider] - Diet: Carb Consistent or DM2 and Low Sodium (2gm) Fluids: 1500ml (6 cups) Addtl Attending Provider Instructions: discharge to [facility] follow attached discharge summary Pending Studies at Discharge: No Stand-Alone Forms: My [facility] Skilled Items Patient informed of condition?: Yes Discharge Level of Care: Other Communicable Disease: No Discharge Prognosis: Stable Lines: None Urinary Catheter: No Medications and DC Order Prescriptions: New metoprolol succinate 25 mg Tablet Extended Release 24 Hr 25 mg PO QAM 30 Days Qty: 30 RF: 0 Eliquis 5 mg Tablet 5 mg PO BID 30 Days Qty: 60 RF: 0 ketoconazole 2 % Cream 1 applic EXT DAILY 10 Days Qty: 1 RF: 0 Lantus Solostar U-100 Insulin 100 unit/mL (3 mL) Insulin Pen 20 unit SC QAM 30 Days Qty: 6 RF: 0 Continued atorvastatin 80 mg tablet 80 mg PO QAM Qty: 90 RF: 0 glimepiride 4 mg tablet 4 mg PO BID RF: 0 nitroglycerin 0.4 mg tablet, sublingual 0.4 mg SL UD PRN (Reason: chest pain) RF: 0 bumetanide 2 mg Tablet 2 mg PO QAM RF: 0 enalapril maleate 10 mg Tablet 10 mg PO BID RF: 0 amlodipine 5 mg Tablet 5 mg PO QAM RF: 0 aspirin 81 mg Tablet,Chewable 81 mg PO QAM RF: 0 Discontinued metformin 1,000 mg tablet 1,000 mg PO BID Qty: 180 RF: 0 metolazone 2.5 mg Tablet 2.5 mg PO DAILY RF: 0 metoprolol tartrate 25 mg Tablet 25 mg PO BID RF: 0 Discharge Orders: Discharge Order (Routine); Ordered 09/26/19 Ordered By: Sukhi Huff Admission Data Admit Date/Time: 09/18/19 13:20 Attending Provider: Sukhi Huff Admit Provider: Gely Wylie Primary Care Provider: [facility] KATZ Other Providers: Gely Wylie ; Emir Cuevas ; Stacey Billy
[2019-09-26] MEDS ORDERED: INSULIN GLARGINE SOLOSTAR 100 UNITS/ML 3 ML PEN SC SCH (12:00)
--- NOTE | 2019-09-26 13:55 | Pharmacy Report ---
Pharmacy Glycemic Short Note 2 - Date of Service September 26, 2019 - Glycemic Short BSG Results (Last 24 hours): 09/25/19 09/25/19 09/26/19 16:15 20:10 06:27 Glucose 72 POC Glucose 205 H 245 H 09/26/19 11:19 Glucose POC Glucose 188 H OUTPATIENT ANTIDIABETIC REGIMEN: * Metformin 1 gm BID * Glimepiride 6 mg daily * A1c 8.4% on 09/19/19 ASSESSMENT: 09/25: * BSGs remain consistent ranging from 92-245 yesterday. * Today's fasting significantly reduced. I will decrease total basal dose and change to once daily dosing in anticipation of discharge. I will delay this dose until lunchtime to ensure BSG came back up. * Continue novolog scale through today in order to adequately assess today's changes. 09/24 * BSGs improving * Over last 24 hrs, pt received 65units SQ insulin while tolerating a diet * Fasting BSG 104 this AM with 32 units basal on board - will continue w/ the same given total daily requirements * Post-prandial BSGs better controlled when prandial dosage increased yesterday - will continue w/ same today now that fasting BSG improved 09/23 * BSG 133-232 over last 24 hrs; pt has received 66 units SQ insulin * Fasting BSG 148-198 this AM, with 25 units basal insulin on board - will continue to titrate upwards * Post-prandial BSG elevations again observed yesterday - I am hesitant to increase both basal and prandial insulin doses today, will adjust CF only given increase in basal x 2 days back to back 09/22 * Fasting BSG at goal with 15 units basal insulin on board and after receiving 5 units correctional insulin last evening * Post prandial BSGs have been elevated - likely needs more prandial insulin * Over the last 24 hrs, 55 units of insulin administered * Will up doses of both basal and prandial insulin today, based upon anticipated total daily requirements 50+ units while tolerating a diet PLAN FOR INPATIENT GLYCEMIC CONTROL: * Continue to hold outpatient oral diabetes medications * Basal insulin - decrease total daily dose * Lantus 25 units SQ at lunchtime, qam going forward * Bolus insulin - no change * NovoLog per scale ACHS or Q6hrs while NPO * Goal Range: Low 110 mg/dL - High 140 mg/dL * Correction Factor: 20 mg/dL/unit * Nutritional / Prandial insulin per carb ratio of 1 unit per 6 grams CHO consumed
--- NOTE | 2019-09-26 14:32 | Nephrology Progress Note ---
Date of Service September 26, 2019 Assessment & Plan (1) Fluid overload: based on imaging, HF hx, exam, pt ROS -- certainly acute on chronic HF; could also have component of nephrotic syndrome. Patient diuresing well. He was net -1.4 L yesterday. Ultrasound of the pelvis showed mild ascites. -Continue torsemide 40mg po daily. If discharged patient can go back to daily Bumex 2 mg home medication -daily STANDING wts -cont FR of 1.5 L daily and Na restrictions given as outpatient. (2) CKD (chronic kidney disease): unknown baseline creatinine; was 0.8 baseline in 2014 but at that time already w/ 1-2 gm proteinuria. chemistries acceptable; fluid OL as above. Creatinine slightly high today at 2.4 from 2.2 yesterday -f/u outside records requested by facility -needs to continue OP follow up w/ nephro at his facility -daily bmp, hgb -cont to avoid nephrotoxins (3) Proteinuria: present and > 1 gm daily since at least 2013; could easily be nephrotic range now and may have component of nephrotic syndrome here -no norma/arb currently but may consider introducing as an outpatient -ordered to check prot/creat -needs OP follow up w/ care home seo specialist; need to know what proteinuria w/u if any has been done; could be done as OP if clinically improving Admission and Anticipated Discharge Date Admission Date: September 18, 2019 Subjective Patient is feeling better. No shortness of breath. Creatinine is stable Review of Systems Review of Systems: All systems reviewed & are unremarkable except as noted in HPI & below Physical Exam Physical Exam: General exam: Appears comfortable, no acute distress HEENT: Pupils are equal and reactive to light Neck: No JVD, neck is supple trachea is midline Respiratory system: Clear breath sounds bilaterally. Gastrointestinal: Abdomen is soft, non distended, non tender, bowel sounds are present CVS: Regular rate and rhythm. No murmurs, rubs or gallops Musculoskeletal: No joint or muscle tenderness Extremities: Non tender, 1+ edema, peripheral pulses are present Neuro: Oriented, no tremors, no focal neurological deficits Skin: No rashes Results & Data ([facility]) Vital Signs (Past 12 Hours) Vital Signs Temp Pulse Pulse Resp BP BP Pulse Ox 09/26/19 12:45 36.5 C 74 20 134/66 135/80 95 09/26/19 11:32 36.5 C 74 20 134/66 95 09/26/19 07:59 36.9 C 65 18 140/73 96 09/26/19 07:32 57 L 09/26/19 04:01 36.8 C 54 L 19 137/71 91 Laboratory Results 09/26/19 06:27
== END 2019-09-26 14:50 | DRG 302 ==
LOC: ED 10:18 → 2E 13:20 → SUATTDRO 13:20 → 2E 15:08

== ENCOUNTER 2021-04-06 12:13 | Observation (INO) ==
[2021-04-06] MEDS ORDERED: CLINDAMYCIN PHOS 300 MG/2 ML VIAL ONE (13:09)
[2021-04-06] MEDS ORDERED: LIDOCAINE 1% LOCAL 20 ML VIAL ONE (13:13)
[2021-04-06] MEDS ORDERED: VANCOMYCIN HCL 1000MG/20ML VIAL ONE (13:14)
[2021-04-06] MEDS ORDERED: BACITRACIN OINT 0.9 GM PKT ONE (13:14)
[2021-04-06] MEDS ORDERED: WATER, STERILE FOR INJ 10 ML VIAL ONE (13:14)
[2021-04-06] MEDS ORDERED: MIDAZOLAM HCL 5 MG/ML 1 ML VIAL ONE (13:19)
[2021-04-06] MEDS ORDERED: fentaNYL citrate 100 MCG/2 ML VIAL ONE (13:19)
--- NOTE | 2021-04-06 13:30 | History & Physical Report ---
Date of Service April 06, 2021 Assessment & Plan (1) Cardiomyopathy: Plan: He is to undergo upgrade of his dual-chamber ICD to with a biventricular ICD. I discussed the indications, procedure, risks and alternatives of this procedure with him and he understands and agrees to proceed. Consent obtained. I also discussed sedation with him, he understands and agrees. Consent obtained. History of Present Illness Chief Complaint: Shortness of breath Primary Care Provider: STERLING Todd Mr. Quiroz is a 65-year-old male with a past medical history significant for coronary artery disease s/p remote latisha-apical myocardial infarction with resultant LV anteroapical aneurysm (previously on anticoagulation therapy due to LV aneurysm and risk for mural thrombus), ischemic cardiomyopathy s/p dual- chamber ICD (generator change 03/20/18), atrial fibrillation, dyslipidemia, hypertension, type 2 diabetes, and RYAN who presents to the clinic for follow-up today. Patient previously followed with [facility] at [facility]. He was admitted to [facility] from 09/18/19 - 09/26/19 with acute on chronic CHF. He was diuresed with IV Lasix with clinical improvement. During his hospitalization, he was found to be in persistent atrial fibrillation since March 2019, after his last device check. He was initiated on anticoagulation therapy for thromboembolic prophylaxis. He was last seen on 03/23/20 for device check. At that time, he was pacing in the ventricle 99% of the time. His atrial antitachycardia pacing was turned on in hopes of converting him to sinus rhythm, as he was previously not bradycardic when in sinus rhythm. He did spontaneously convert to an atrial paced rhythm in April 2020. He has had no significant atrial fibrillation since although has brief episodes. An echocardiogram done October 16, 2020 showed a moderate left ventricular enlargement with moderate concentric left ventricular hypertrophy and a left ventricular ejection fraction of 25 to 30%. He also had a mildly enlarged aortic root. This was similar to August 2019. Due to back discomfort he is not very active, he does try to get out of his wheelchair from time to time and he moves his legs frequently while sitting in the wheelchair. He has been having a lot of difficulty with fluid retention, in part he was drinking a lot of fluids which she is now reduced however he also has difficulty with an elevated creatinine possibly due to kidney perfusion. He is pacing in the ventricle with a wide QRS complex which no doubt contributes to his cardiomyopathy. He is therefore planned for an upgrade to a biventricular unit. Allergies Allergy/AdvReac Type Severity Reaction Status Date / Time Sulfa (Sulfonamide Allergy Intermediate "RASH A Verified 01/04/21 10:21 Antibiotics) CHILD" Penicillins Allergy Mild "RASH A Verified 01/04/21 10:21 CHILD" camphor Allergy Unknown Verified 01/04/21 10:21 [From [place] (with capsicum)] capsaicin Allergy Unknown Verified 01/04/21 10:21 [From [place] (with capsicum)] menthol Allergy Unknown Verified 01/04/21 10:21 [From [place] (with capsicum)] Home Medications Medication Instructions Recorded Confirmed Type atorvastatin 80 mg tablet 80 mg PO QAM #90 tab 03/04/19 04/06/21 History nitroglycerin 0.4 mg sublingual 0.4 mg SL UD PRN tab 03/04/19 04/06/21 History tablet aspirin 81 mg chewable tablet 81 mg PO QAM 09/18/19 04/06/21 History finasteride 5 mg tablet 5 mg PO QAM 03/26/20 04/06/21 History insulin glargine 100 unit/mL (3 40 unit SUBCUT QAM 08/11/20 04/06/21 History mL) subcutaneous pen (Lantus Solostar U-100 Insulin) insulin regular human 100 unit/mL 1 sliding scale dose SUBCUT 08/11/20 04/06/21 History injection solution (Novolin R USEASDIRECTD Regular U-100 Insulin) amlodipine 10 mg tablet 10 mg PO DAILY 11/06/20 04/06/21 History apixaban 5 mg tablet (Eliquis) 5 mg PO BID 11/06/20 04/06/21 History losartan 100 mg tablet 100 mg PO DAILY 11/06/20 04/06/21 History metoprolol succinate 50 mg 50 mg PO DAILY 11/06/20 04/06/21 History tablet,extended release 24 hr bumetanide 2 mg tablet 1 mg PO QAM tab 01/04/21 04/06/21 History hydrochlorothiazide 25 mg PO DAILY 01/04/21 04/06/21 History enalapril maleate 10 mg tablet 10 mg PO DAILY 04/06/21 04/06/21 History montelukast 10 mg tablet 10 mg PO DAILY 04/06/21 04/06/21 History Past Med/Surg History Medical History (Updated 02/09/21 @ 09:32 by Yuri Rudd DO) Atrial fibrillation Atrial flutter CAD (coronary artery disease) Chronic back pain CKD (chronic kidney disease) creatinine stable in the 2.1-2.4 range since 09/2019 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, type II Dyslipidemia Elevated PSA High cholesterol History of myocardial infarction remote latisha-apical [place] with resultant LV anteroapical aneurysm with resultant ischemic cardiomyopathy HTN (hypertension) ICD (implantable cardioverter-defibrillator) in place Inmate in correctional facility Ischemic cardiomyopathy RYAN (obstructive sleep apnea) uses CPAP Urethral stricture Surgical History History of back surgery History of cardiac cath History of permanent cardiac pacemaker placement ICD defibrillator Family History Father Hypertension Mother Hypertension Other Diabetes Social History Smoking Status: Never smoker Second Hand Exposure: No; Hx Alcohol Use: No Hx Substance Use: No Preferred Language: Grenadian Communication Ability: Effective Edi Developer Required: No Beliefs That Will Affect Care: None marital status: Current Living Situation: Other Current Living Situation Comment: correctional facility Other Information That Helps Us Care for You: No Feels Safe at Home: Yes Safety Concerns: Feels Safe At This Time Assistive Devices: Cane and Glasses Physical Exam Physical Exam: Constitutional: Alert, cooperative and in no distress. He is in a wheelchair. HEENT: Unremarkable Neck: No jugular venous distention. Pulmonary: Clear to auscultation bilaterally. Cardiac: Regular rhythm with no murmur, occasional ectopy, gallop or rub. Abdomen: Soft, nontender with normal bowel sounds. Extremities: Trace left lower extremity edema. No significant right lower extremity edema. Distal pulses intact. Neurologic: No focal findings. Gait is steady. Skin: The device site is well-healed without erythema, swelling or tenderness. No rash, ecchymoses or petechiae. Results & Data Results & Data ([facility]) Vital Signs (Past 12 Hours) Vital Signs Temp Pulse Resp BP Pulse Ox 04/06/21 12:27 37 C 68 20 163/96 H 98 PG Care Time/CCT Total # of Minutes Spent Total Time Spent with Patient: Total time spent is greater than 50% in coordination of care (as documented) at patient's floor/unit and/or counseling patient: Coding Level of Care Code None Diagnoses Cardiomyopathy I42.9
--- NOTE | 2021-04-06 13:31 | Pre Anesthesia Assessment ---
Date of Service April 06, 2021 Pre Sedation Assessment Vital Signs Temp Pulse Resp BP Pulse Ox 04/06/21 12:27 37 C 68 20 163/96 H 98 Cardiovascular RRR, no murmur, no edema Respiratory normal respiratory effort, lungs clear to auscultation Pre-Sedation Airway Assessment Smoking Status: Never smoker Hx Sleep Apnea: No Short, Thick Neck: No Thyromental Distance: > or= 3.5 Finger Breadths Oral Cavity: + WNL Mallampati Class: II ASA: ASA3 NPO Status Date of Last Intake of Fluids: 04/05/21 Time of Last Intake of Fluids: 22:00 Date of Last Intake of Solid Food: 04/05/21 Time of Last Intake of Solid Foods: 22:00 Procedure Planning Contraindications for Sedation: none Current Medications Reviewed: Yes Notes The planned sedation has been discussed with the patient. Informed Consent was obtained. I have identified the patient, determined the appropriateness of sedation and have assessed the patient immediately prior to the procedure. All medicine(s) and interventions are by my order.
--- NOTE | 2021-04-06 16:01 | Electrophysiology Report ---
Date of Service April 06, 2021 Electrophysiology Procedure Electrophysiology Procedure Report Preoperative diagnosis: Cardiomyopathy Dual-chamber ICD Postoperative diagnosis: Same Procedure: Left subclavian venogram Coronary sinus angiogram Left ventricular lead implantation Dual-chamber ICD explantation Biventricular ICD implantation Surgeon: Arley Nicole MD Estimated blood loss: 40 cc Complications: None Disposition: [employer] recovery Procedure details: Dye was injected the left arm IV site to opacify the left subclavian vein. The subclavian vein was identified and found to be free of obstruction. Left axillary venipuncture was performed and a guidewire placed through left subclavian vein into the right atrium. A 2 cm incision was made and carried down to the pectoralis fascia. A [place] coronary sinus sheath was advanced to position in the right atrium. It was positioned near the coronary sinus, dye was injected to opacify the office of the coronary sinus and a guidewire was advanced into the coronary sinus. The sheath system was advanced into the coronary sinus. Dye was injected in the coronary sinus in various projections using a balloon occlusion catheter to identify the venous branches. A good branch was identified and a 0.014 inch guidewire was advanced into the branch. A left ventricular lead was advanced over the guidewire into good position. The pacing threshold was evaluated in this position as noted on the implant data sheet. The sheath system was then removed from the lead and the lead was attached to the anterior pectoral fascia using 2 sutures of 2-0 silk around the lead collar. The ICD pocket was opened by further anesthetizing along the original implant site and incision was made through the scar and carried down to the pacemaker generator. The generator was dissected free of tissue and explanted. The left ventricular lead was tunneled to the pocket, left subclavian venipuncture had been performed about 3 cm superior to the ICD pocket. The leads were disconnect ed from the generator and a new biventricular ICD was attached to these leads as well as the coronary sinus lead. The ICD pocket was enlarged slightly in the superior direction. The ICD was placed in the pocket with the leads coiled beneath it and the incision was closed with a running double subcutaneous closure of 3-0 Vicryl followed by running subcuticular skin closure of 4-0 Vicryl. The left ventricular lead incision was closed with a subcutaneous closure of 4-0 Vicryl followed by subcuticular skin closure of 4-0 Vicryl. Bacitracin ointment was placed on both incisions and dressings applied. [facility] [place] Electrophysiology codes Indication for Procedure (1) Cardiomyopathy: Pacing Procedure 1: Pacin BiV electrode only - stand alone procedure ICD Procedure 1: ICD: 99329 Removal of pulse generator only Procedure 2: ICD: 61936 Multi ICD implant, chronic leads Miscellaneous Procedures Procedure 1: EP Miscellaneous: 68416 Contrast injection for venography Procedure 2: EP Miscellaneous: 17689-88 Vengraphy, extremity Procedure 3: EP Miscellaneous: 87976-47 Venography, CS supevsion/interp PG Moderate Sedation Codes Moderate Sedation Codes Procedure 1: Sedation/Anesthesia: 17623 Mod Sedation by the same physician;Init15 Min Child Age 5 & Up Procedure 2: Sedation/Anesthesia: 63547 Mod Sedation by the same physician; Ea [id number] Minutes
[2021-04-06] MEDS ORDERED: KETOROLAC TROMETHAMINE 10 MG TABLET PO PRN (16:02)
[2021-04-06] MEDS ORDERED: NITROGLYCERIN SL 0.4 MG/TAB TAB SL PRN (16:03)
--- NOTE | 2021-04-06 16:51 | Post Anesthesia Assessment ---
Date of Service April 06, 2021 Post Sedation Assessment Vital Signs Temp Pulse Resp BP Pulse Ox 04/06/21 16:45 61 17 139/87 95 04/06/21 16:30 60 17 130/83 96 04/06/21 16:15 60 17 138/85 91 04/06/21 16:00 60 17 129/83 90 04/06/21 15:45 60 17 137/85 90 04/06/21 12:27 37 C 68 20 163/96 H 98 Recovery Score Activity: Moves 4 extremities Respiration: Deep Breath/Cough Circulation: +/-20% PreAnes Value Consciousness: Fully Awake Oxygen Saturation: > 92% On Room Air Post Anesthesia Score: 10 Discharge Sedation Level of Care: Fast Track Phase II Post Sedation Plan On clinical assessment, the patient appears to have tolerated the sedation without complications. Patient is recovering as anticipated. Patient will continue to be monitored by nursing and may be discharged when sedation discharge criteria are met per below protocol. Upon Completions of procedure up to 15 minutes continue every 5 minute vital signs and the P.A.R. score; then discharge to a Phase I or Fast Track to Phase II per the following guidelines: * Discharge Patient to appropriate Phase II area if PAR is 8 or greater or return to pre- procedure baseline. The post - procedure orders will be as directed. * If PAR score is less than 8 or not return to pre-procedure baseline then patient will follow Phase I monitoring till PAR is reached for Phase II. The Phase I may be done in procedure room or may call to secure a Phase I area. * If naloxone or flumazenil are used for reversal, hold in Phase I for continued monitoring from when last reversal dose was given for a minimum of 60 minutes or longer pending the nurse and/or physician discretion of patient condition before discharge to Phase II. Please call the Sedation Physician to re-evaluate and complete post-note for discharge to Phase II area. Do NOT discharge from procedure sedation or Phase 1 until post- sedation evaluation note is complete by procedure /sedation MD Sedation Discharge Instructions to be given to the patient at discharge to home.
[2021-04-06] MEDS ORDERED: GLUCOSE 10 TABS/TUBE PO PRN (19:45)
[2021-04-06] MEDS ORDERED: CARBOHYDRATES FOR HYPOGLYCEMIA PO PRN (19:45)
[2021-04-06] MEDS ORDERED: GLUCOSE 40% GEL 15 GM TUBE PO PRN (19:45)
[2021-04-06] MEDS ORDERED: DEXTROSE 50% 50 ML SYRINGE IV PRN (19:45)
[2021-04-06] MEDS ORDERED: GLUCAGON FOR INJ 1 MG VIAL SQ PRN (19:45)
[2021-04-06] MEDS: ACETAMINOPHEN 325 MG TAB PO PRN (21:38)
[2021-04-06] MEDS: INSULIN ASPART 100 UNITS/ML 3 ML PEN SC SCH (21:41)
[2021-04-07] MEDS: ACETAMINOPHEN 325 MG TAB PO PRN ×2 (01:32→12:12)
--- NOTE | 2021-04-07 08:52 | XRay Report ---
XR chest 2V PA/lateral CLINICAL HISTORY: Pacemaker insertion. COMPARISON STUDY: Chest radiograph and chest CT August 11, 2020. FINDINGS: There is no pneumothorax following placement of a left subclavian biventricular pacer/AICD. Lead tips project over the right atrial appendage and right ventricle as well as a third lead which likely extends through the coronary sinus. Cardiomediastinal silhouette is stable. Bibasilar opacitie s favor atelectasis. There is a right lower lobe calcified granuloma. There is no evidence for pulmon jens edema. IMPRESSION: No pneumothorax upon placement of a left subclavian biventricular pacer/AICD. ACT 112: Negative or not required by law. Electronically signed by: Antonio Hopper M.D. 04/07/2021 8:50 AM
[2021-04-07] MEDS ORDERED: MONTELUKAST SODIUM 10 MG TABLET PO SCH (09:00)
[2021-04-07] MEDS ORDERED: hydroCHLOROthiazide 25 MG TAB PO SCH (09:00)
[2021-04-07] MEDS ORDERED: FINASTERIDE 5 MG TAB PO SCH (09:00)
[2021-04-07] MEDS ORDERED: BUMETANIDE 1 MG TAB PO SCH (09:00)
[2021-04-07] MEDS ORDERED: ENALAPRIL MALEATE 10 MG TAB PO SCH (09:00)
[2021-04-07] MEDS ORDERED: ATORVASTATIN 40 MG TAB PO SCH (09:00)
[2021-04-07] MEDS ORDERED: METOPROLOL SUCC 50MG EXT REL TAB PO SCH (09:00)
[2021-04-07] MEDS ORDERED: amLODIPine BESYLATE 5 MG TAB PO SCH (09:00)
[2021-04-07] MEDS ORDERED: ASPIRIN 81 MG ECTAB PO SCH (09:00)
[2021-04-07] MEDS ORDERED: INSULIN GLARGINE SOLOSTAR 100 UNITS/ML 3 ML PEN SQ SCH (09:00)
[2021-04-07] MEDS ORDERED: LOSARTAN POTASSIUM 50 MG TAB PO SCH (09:00)
--- NOTE | 2021-04-07 09:06 | Cardiology Progress Note ---
Date of Service April 07, 2021 Assessment & Plan (1) History of implantable cardioverter-defibrillator (ICD) placement: Plan: POD#1: Doing well for discharge. Admission and Anticipated Discharge Date Admission Date: April 06, 2021 Results & Data ([facility]) Vital Signs (Past 12 Hours) Vital Signs Temp Pulse Resp BP Pulse Ox 04/07/21 06:36 65 20 135/74 94 04/07/21 05:36 63 13 125/68 92 04/07/21 04:36 36.8 C 64 15 122/76 94 04/07/21 03:36 61 18 136/71 04/07/21 03:30 19 95 04/07/21 02:06 63 20 96/66 L 93 04/07/21 01:36 77 18 119/67 93 04/07/21 01:06 62 18 114/66 94 04/07/21 00:36 65 17 121/73 93 04/07/21 00:06 36.6 C 61 20 160/83 H 95 04/06/21 23:43 63 04/06/21 23:36 64 10 L 131/72 94 04/06/21 23:06 68 17 131/74 94 04/06/21 22:36 72 21 148/93 H 97 04/06/21 22:06 61 21 137/73 04/06/21 21:36 62 18 170/91 H 04/06/21 21:06 60 21 149/100 H Laboratory Results CXR: Good lead position, no pneumothorax ECG: Bi-V pacing but LBBB pattern remains ICD evaluation: Electrode 4 is not working well, reprogrammed with good result PG Care Time/CCT Total # of Minutes Spent Total Time Spent with Patient: Total time spent is greater than 50% in coordination of care (as documented) at patient's floor/unit and/or counseling patient: Coding Level of Care Code 49150 Post Operative Follow-Up Diagnoses History of implantable cardioverter-defibrillator (ICD) placement Z95.810 CPT Codes Implantable Defib Multi lead programming - 10786 ([id number])
[2021-04-07] MEDS: INSULIN ASPART 100 UNITS/ML 3 ML PEN SC SCH ×2 (09:47→11:54)
--- NOTE | 2021-04-07 11:34 | Cardiology Progress Note ---
Date of Service April 07, 2021 Assessment & Plan (1) Biventricular ICD (implantable cardioverter-defibrillator) in place: Plan: -upgraded from a dual-chamber device to a biventricular ICD yesterday. -pacing configuration set yesterday was not capturing at the time of the device interrogation today. -pacing configuration successfully changed to LV3-coil. -currently pacing 100% of the time the ventricles. -incision intact. -stable for hospital discharge. -follow-up has been scheduled. (2) Coronary atherosclerosis of [place] coronary artery: Plan: -s/p anteroapical [place] with resultant apical aneurysm. -continue medical management. (3) Ischemic cardiomyopathy: Plan: -left ventricular ejection fraction 25-30% on echocardiogram September 2020. -continue medical management. Admission and Anticipated Discharge Date Admission Date: April 06, 2021 Subjective The patient is resting comfortably in bed without complaints of chest pain or dyspnea. He notes improvement in his overall sense of well-being since his device was upgraded yesterday. Physical Exam Physical Exam: In general is well-developed well-nourished white male no acute distress. HEENT exam is negative. Neck is supple with full carotid upstrokes. No obvious bruits. Jugular is pressure is flat degrees. No thyromegaly. Cardiovascular exam reveals a regular rhythm with distant heart sounds. No obvious murmurs. No S3. Chest reveals a well healing scar in the left subclavicular region. No bleeding or bruising. Lungs are clear without rales, rhonchi or wheezes. Abdomen is soft without bruits. Extremities reveal intact radial artery pulses bilaterally. There is no peripheral edema. Results & Data ([facility]) Vital Signs (Past 12 Hours) Vital Signs Temp Pulse Pulse Resp BP BP Pulse Ox 04/07/21 09:06 36.4 C L 64 21 133/86 94 04/07/21 06:36 65 20 135/74 94 04/07/21 05:36 63 13 125/68 92 04/07/21 04:36 36.8 C 64 15 122/76 94 04/07/21 03:36 61 18 136/71 04/07/21 03:30 19 95 04/07/21 02:06 63 20 96/66 L 93 04/07/21 01:36 77 18 119/67 93 04/07/21 01:06 62 18 114/66 94 04/07/21 00:36 65 17 121/73 93 04/07/21 00:06 36.6 C 61 20 160/83 H 95 04/06/21 23:43 63 04/06/21 23:36 64 10 L 131/72 94 Diagnostic Findings Pacemaker interrogation with the [employer] underwriting service representative noted poor capture compared with yesterday following the procedure. Pacing configuration was changed from L4-coil to L3-coil. Threshold within new configuration was 0.5 volts. The patient is pacing 100% of the time in the ventricles. Chest x-ray shows no evidence of a pneumothorax. Leads are in appropriate positions. PG Care Time/CCT Total # of Minutes Spent Total Time Spent with Patient: Total time spent is greater than 50% in coordination of care (as documented) at patient's floor/unit and/or counseling patient: Coding Level of Care Code 36486 Subseq Hosp Care Lvl 3 Diagnoses Biventricular ICD (implantable cardioverter-defibrillator) in place Z95.810 Coronary atherosclerosis of [place] coronary artery I25.10 [place] vs. transplanted heart: [place] heart Associated angina: without angina Ischemic cardiomyopathy I25.5 (1) Coronary atherosclerosis of [place] coronary artery [place] vs. transplanted heart: [place] heart Associated angina: without angina Qualified Code(s): I25.10 - Atherosclerotic heart disease of [place] coronary artery without angina pectoris
--- NOTE | 2021-04-07 15:29 | Electrocardiogram Report ---
Test Reason : Blood Pressure : / mmHG Vent. Rate : 062 BPM Atrial Rate : 063 BPM P-R Int : 126 ms QRS Dur : 230 ms QT Int : 546 ms P-R-T Axes : 077 -87 097 degrees QTc Int : 554 ms AV dual-paced rhythm Biventricular pacemaker detected Abnormal ECG When compared with ECG of 11-AUG-2020 12:13, Vent. rate has decreased BY 9 BPM Confirmed by Sanjeev Fountain ([id number]) on 04/07/2021 3:28:52 PM Referred By: Arley Nicole Confirmed By:Sanjeev Fountain
--- NOTE | 2021-04-07 15:42 | Electrocardiogram Report ---
Test Reason : Blood Pressure : / mmHG Vent. Rate : 063 BPM Atrial Rate : 063 BPM P-R Int : 136 ms QRS Dur : 180 ms QT Int : 516 ms P-R-T Axes : 071 250 -85 degrees QTc Int : 528 ms AV dual-paced rhythm Abnormal ECG When compared with ECG of 06-APR-2021 22:44, No significant change was found Confirmed by Sanjeev Fountain ([id number]) on 04/07/2021 3:41:41 PM Referred By: Arley Nicole Confirmed By:Sanjeev Fountain
--- NOTE | 2021-04-08 07:31 | Discharge Summary ---
Date of Service April 08, 2021 Admission HPI Per Admitting Provider Mr. Quiroz is a 65-year-old male with a past medical history significant for coronary artery disease s/p remote latisha-apical myocardial infarction with resultant LV anteroapical aneurysm (previously on anticoagulation therapy due to LV aneurysm and risk for mural thrombus), ischemic cardiomyopathy s/p dual- chamber ICD (generator change 03/20/18), atrial fibrillation, dyslipidemia, hypertension, type 2 diabetes, and RYAN who presents to the clinic for follow-up today. Patient previously followed with [facility]. He was admitted to [facility] from 09/18/19 - 09/26/19 with acute on chronic CHF. He was diuresed with IV Lasix with clinical improvement. During his hospitalization, he was found to be in persistent atrial fibrillation since March 2019, after his last device check. He was initiated on anticoagulation therapy for thromboembolic prophylaxis. He was last seen on 03/23/20 for device check. At that time, he was pacing in the ventricle 99% of the time. His atrial antitachycardia pacing was turned on in hopes of converting him to sinus rhythm, as he was previously not bradycardic when in sinus rhythm. He did spontaneously convert to an atrial paced rhythm in April 2020. He has had no significant atrial fibrillation since although has brief episodes. An echocardiogram done October 16, 2020 showed a moderate left ventricular enlargement with moderate concentric left ventricular hypertrophy and a left ventricular ejection fraction of 25 to 30%. He also had a mildly enlarged aortic root. This was similar to August 2019. Due to back discomfort he is not very active, he does try to get out of his wheelchair from time to time and he moves his legs frequently while sitting in the wheelchair. He has been having a lot of difficulty with fluid retention, in part he was drinking a lot of fluids which she is now reduced however he also has difficulty with an elevated creatinine possibly due to kidney perfusion. He is pacing in the ventricle with a wide QRS complex which no doubt contributes to his cardiomyopathy. He is therefore planned for an upgrade to a biventricular unit which was done on 04/06/2020 without apparent difficulty. Admission Exam (Per Admitting) Constitutional Constitutional: Alert, cooperative and in no distress. He is in a wheelchair. HEENT: Unremarkable Neck: No jugular venous distention. Pulmonary: Clear to auscultation bilaterally. Cardiac: Regular rhythm with no murmur, occasional ectopy, gallop or rub. Abdomen: Soft, nontender with normal bowel sounds. Extremities: Trace left lower extremity edema. No significant right lower extremity edema. Distal pulses intact. Neurologic: No focal findings. Gait is steady. Skin: The device site is well-healed without erythema, swelling or tenderness. No rash, ecchymoses or petechiae. Discharge Data Procedures Performed Operation Date: 04/06/21 13:00 Actual Procedures p Upgrade of any system to BIV - Arley Nicole MD s Venogram, Unilateral - Arley Nicole MD Hospital Course (1) History of implantable cardioverter-defibrillator (ICD) placement: An LV lead was implanted on 04/06/2020 with replacement of his ICD; the procedure was uneventful. He is doing well POD#1 and is stable for discharge. Coding Level of Care Code None Diagnoses History of implantable cardioverter-defibrillator (ICD) placement Z95.810
== END 2021-04-07 14:58 | disposition home or self-care (01) ==
LOC: 1E 12:13 → EP 12:13